=== PATIENT | female | born 1980 | race Caucasian/White ===

== ENCOUNTER 2023-11-17 11:54 | Outpatient (CLI) | payer MEDICAID, SELFPAY ==
--- NOTE | 2023-11-17 12:00 | MM_ITS ---
WS: [id number] BILATERAL 3D TOMOSYNTHESIS DIGITAL SCREENING MAMMOGRAPHY WITH CAD CLINICAL INFORMATION: SCREENING HISTORY: Screening mammogram. No current complaints. COMPARISON: New baseline TECHNIQUE: Bilateral CC and MLO views. FINDINGS: Scattered fibroglandular densities bilaterally. No suspicious focal mass, asymmetry, calcifications, or architectural distortion. No evidence of malignancy. IMPRESSION: MM/[place] [id number] BI-RADS: 1-Negative FOLLOW UP: 1 Year Follow-up Recommend return to annual screening mammography.
== END 2023-11-17 11:55 | disposition home or self-care (01) ==
LOC: MOBLMAM 12:04
PROVIDERS: PCP Nurse Practitioner Family; Visit Provider Nurse Practitioner Family
DX: Z12.31 Encounter for screening mammogram for malignant neoplasm of breast (principal)
CPT/HCPCS: 77063; 77067

== ENCOUNTER → 2023-11-22 15:00 | Outpatient (BNVA) | payer MEDICAID, SELFPAY | PROVIDERS: PCP Nurse Practitioner Family; Visit Provider Obstetrics & Gynecology | DX: Z00.00 Encounter for general adult medical examination without abnormal findings (principal) | CPT/HCPCS: 80053; 84443; 85025 ==

== ENCOUNTER → 2023-11-28 09:16 | Outpatient (BNVA) | payer MEDICAID, SELFPAY | PROVIDERS: PCP Nurse Practitioner Family; Visit Provider Obstetrics & Gynecology | DX: N92.0 Excessive and frequent menstruation with regular cycle (principal); N83.201 Unspecified ovarian cyst, right side | CPT/HCPCS: 76830 ==

== ENCOUNTER 2024-08-05 11:06 | Emergency (ER) | payer MEDICAID, SELFPAY ==
[2024-08-05] VITALS (7 sets, daily range): BP systolic 98–116; BP diastolic 63–86; PULSE 87–116; RESP 15–22; TEMP 36.6; O2SAT 96–100; BMI 21.6
[2024-08-05 11:49] LABS: HCG Qualitative Urine. Negative (Negative)
[2024-08-05 11:55] LABS: Add Urine Microscopic? YES; Bilirubin Urine 1+ (Negative); Blood Urine 2+ (Negative); Glucose Urine UA Norm (Normal); Ketones Urine Negative (Negative); Leukocyte Esterase Urine 2+ (Negative); Nitrate Urine Negative (Negative); Protein Urine 1+ (Negative); Urine Appearance Slightly Cloudy (CLEAR); Urine Color Yellow (Yellow); Urobilinogen Urine 1 mg/dL (Negative); pH Urine 7 (5-7)
[2024-08-05 11:56] LABS: Add Urine Culture? No; Bacteria Urine 2+ /hpf; RBC Urine 0-4 /hpf (0-2); WBC Urine 15-25 /hpf (0-5)
--- NOTE | 2024-08-05 12:11 | PC.NURSE ---
pt reports being iv drug user for 20 years. attempted iv, tech attempted iv, no success. charge nurse rn notified for us iv.
--- NOTE | 2024-08-05 12:15 | ED_ITS ---
HPI - Abdominal Pain 2 General: Chief Complaint: Abdominal Pain Stated Complaint: right stomach pain, vomiting, nauseau Time Seen by Provider: 08/05/24 11:37 History of Present Illness: Patient presents to the ER with complaint of gallbladder pain. She also has nausea vomiting diarrhea this been going over a week long. She says in 2 days she has a appointment for a surgical consult by Dr. Guerra. She has not been able to eat anything for the last week or keep any fluids down. She she is getting weak and her pain has been increasing. She is not on any pain medicine but she is on famotidine and Prilosec and this does not seem to be helping. Related Data Home Medications Medication Instructions Recorded Confirmed buspirone 5 mg tablet 5 mg PO BID 11/22/23 11/22/23 famotidine 10 mg tablet 10 mg PO DAILY 11/22/23 11/22/23 omeprazole 20 mg tablet,delayed 20 mg PO DAILY 11/22/23 11/22/23 release Previous Rx's Medication Instructions Recorded ketorolac 10 mg tablet 10 mg PO TID PRN pain #14 tabs 08/05/24 metoclopramide HCl 10 mg tablet 10 mg PO Q6H PRN nausea and 08/05/24 (Reglan) vomiting #20 tabs potassium chloride 20 mEq 20 meq PO BID #14 tabs 08/05/24 tablet,extended release Allergies Allergy/AdvReac Type Severity Reaction Status Date / Time Penicillins Allergy ALGY-Rash Verified 08/05/24 11:17 Review of Systems 2 General: Reports: 10 or more systems reviewed and unremarkable except in HPI and below PFSH ED 2 PFSH: Family History Grandmother Breast cancer maternal Colon cancer maternal Hypercholesteremia maternal Hypertension maternal Mother Uterine cancer Grandfather Hypercholesteremia Hypertension maternal Denies family history of Ovarian cancer Diabetes mellitus type 1 Diabetes mellitus, type 2 Heart disease Thyroid disease Stroke Physical Exam 2 Const: COMMON NORMALS: no acute distress, average body habitus, patient oriented x3, no limitations, healthy appearing, alert and well nourished HENMT: COMMON NORMALS: normocephalic, atraumatic, hearing grossly normal bilaterally, external ears normal, Normal external nose present and moist oral mucous membranes HEAD & SCALP: normocephalic and atraumatic NOSE: Normal external nose present EXTERNAL EAR: Yes external ears normal Neck/C-Spine: COMMON NORMALS: no JVD Chest: COMMONS NORMALS: normal inspection of the chest and normal palpation of entire chest wall Resp: COMMON NORMALS: normal respiratory effort, No retractions, No use of accessory muscles and clear to auscultation bilaterally AUSCULTATION: clear to auscultation bilaterally Cardio: COMMON NORMALS: no JVD, regular rate, regular rhythm, S1 normal heart sound present, S2 normal heart sound present, No gallops present (Cardio), No clicks present (Cardio), No murmurs present (Cardio) and No rub (Cardio) R ATE: regular rate RHYTHM: regular rhythm HEART SOUNDS: S1 normal heart sound present and S2 normal heart sound present GI: COMMON NORMALS: Normal to inspection, nondistended, normoactive bowel sounds present, Soft to palpation, No hepatosplenomegaly present and no masses; negative for non-tender (Tender to palpate right upper quadrant) PALPATION: Y es Soft to palpation and Yes No hepatosplenomegaly present Neuro: COMMON NORMALS: patient oriented x3 SENSORIUM/ORIENTATION: Yes alert Course 2 Vital Signs: Vital signs: Vital Signs Temperature 97.9 F 08/05/24 11:10 Pulse Rate 98 08/05/24 13:30 Respiratory Rate 18 08/05/24 13:30 Blood Pressure 98/63 08/05/24 13:30 Pulse Oximetry 100 08/05/24 13:30 Oxygen Delivery Me thod Room Air 08/05/24 13:30 MDM - Abdominal Pain Medical Decision Making Patient presents to the ER with right upper quadrant abdominal pain nausea vomiting. Patient already has appointment with Dr. Guerra. Lab work was obtained which showed patient potassium of 2.1, otherwise benign. Patient was given 40 oral milliequivalents potassium here as well as 4 mg Zofran and 30 mg Toradol. Patient be discharged with Reglan, Toradol and potassium. Patient should keep her appointment with Dr. Guerra and follow-up with her PCP in approximately 7 days for reeval. Differential Diagnosis Likely abdominal pain Medical Records I reviewed the patient's medical records. Lab Data I reviewed the patient's lab results. 08/05/24 12:40 08/05/24 12:40 Labs/Radiology: Laboratory Results WBC 11.84 10^3/uL (3.29-11.43) H 08/05/24 12:40 RBC 4.01 10^6/uL (3.85-5.65) 08/05/24 12:40 Hgb 12.60 g/dL (11.27-16.99) 08/05/24 12:40 Hct 35.7 % (36-47) L 08/05/24 12:40 MCV 89.0 fl (85-98) 08/05/24 12:40 MCH 31.4 pg (27-33) 08/05/24 12:40 MCHC 35.3 g/dL (30-55) 08/05/24 12:40 RDW 15.9 % (12.1-15.1) H 08/05/24 12:40 Plt Count 362 10^3/cmm (157-399) 08/05/24 12:40 MPV 9.4 fL (7.4-10.4) 08/05/24 12:40 Neut % (Auto) 66.8 % 08/05/24 12:40 Lymph % (Auto) 15.3 % 08/05/24 12:40 [place] % (Auto) 16.5 % 08/05/24 12:40 Eos % (Auto) 0.7 % 08/05/24 12:40 Baso % (Auto) 0.3 % 08/05/24 12:40 Neut # (Auto) 7.92 10^3/uL (1.8-7.7) H 08/05/24 12:40 Lymph # (Auto) 1.8 10^3/uL (0.8-4.8) 08/05/24 12:40 [place] # (Auto) 2.0 10^3/uL (0.2-0.9) H 08/05/24 12:40 Eos # (Auto) 0.1 10^3/uL (0.0-0.8) 08/05/24 12:40 Baso # (Auto) 0.0 10^3/uL (0.0-0.1) 08/05/24 12:40 Nucleated RBC % (auto) 0.2 % 08/05/24 12:40 Nucleated RBCs # 0.0 /100WBC 08/05/24 12:40 Sodium 133 mmol/L (136-145) L 08/05/24 12:40 Potassium 2.1 mmol/L (3.5-5.1) L* 08/05/24 12:40 Chloride 86 mmol/L (98-107) L 08/05/24 12:40 Carbon Dioxide 30 mmol/L (22-29) H 08/05/24 12:40 Anion Gap 19.1 (5-19) H 08/05/24 12:40 BUN 3 mg/dL (6-20) L 08/05/24 12:40 Creatinine 0.6 mg/dL (0.5-0.9) 08/05/24 12:40 GFR Calculation 108.6 mL/min (90-130) 08/05/24 12:40 Glucose 122 mg/dL (65-115) H 08/05/24 12:40 Calculated Osmolality 274 mOsm/kg (285-295) L 08/05/24 12:40 Calcium 7.6 mg/dL (8.5-10.5) L 08/05/24 12:40 Total Bilirubin 0.7 mg/dL (0.15-1.2) 08/05/24 12:40 AST 19 U/L (0-32) 08/05/24 12:40 ALT 6 U/L (0-33) 08/05/24 12:40 Alkaline Phosphatase 111 U/L (35-105) H 08/05/24 12:40 Total Protein 6.2 g/dL (6.6-8.7) L 08/05/24 12:40 Albumin 3.2 g/dL (3.5-5.2) L 08/05/24 12:40 Globulin 3.0 g/dL (1.3-4.6) 08/05/24 12:40 HCG, Qual Negative (Negative) 08/05/24 11:24 Urine Color Yellow (Yellow) 08/05/24 11:24 Urine Appearance Slightly cloudy (CLEAR) 08/05/24 11:24 Urine pH 7 (5-7) 08/05/24 11:24 Ur Specific [place] 1.000 (1.005-1.030) L 08/05/24 11:24 Urine Protein 1+ (Negative) H 08/05/24 11:24 Urine Glucose (UA) Norm (Normal) 08/05/24 11:24 Urine Ketones Negative (Negative) 08/05/24 11:24 Urine Blood 2+ (Negative) H 08/05/24 11:24 Urine Nitrate Negative (Negative) 08/05/24 11:24 Urine Bilirubin 1+ (Negative) H 08/05/24 11:24 Urine Urobilinogen 1 mg/dL (Negative) H 08/05/24 11:24 Ur Leukocyte Esterase 2+ (Negative) H 08/05/24 11:24 Urine RBC 0-4 /hpf (0-2) H 08/05/24 11:24 Urine WBC 15-25 /hpf (0-5) H 08/05/24 11:24 Ur Squamous Epith Cells 10-15 /hpf (0-5) H 08/05/24 11:24 Amorphous Sediment Not Reportable 08/05/24 11:24 Urine Bacteria 2+ /hpf (NONE) H 08/05/24 11:24 All radiology interpretation(s) finalized by discharge Discharge Plan Discharge Patient Disposition: Home Clinical Impression: Biliary colic, Acute hypokalemia Nausea & vomiting Qualifiers: Vomiting type: unspecified Qualified Code(s): R11.2 - Nausea with vomiting, unspecified Condition: Stable Prescriptions: New metoclopramide HCl [Reglan] 10 mg tablet 10 mg PO Q6H PRN (Reason: nausea and vomiting) Qty: 20 0RF ketorolac 10 mg tablet 10 mg PO TID PRN (Reason: pain) Qty: 14 0RF Rx Instructions: maximum total duration of 5 days from all oral, intranasal, or parenteral formulations potassium chloride 20 mEq tablet extended release 20 meq PO BID Qty: 14 0RF No Action omeprazole 20 mg tablet,delayed release (DR/EC) 20 mg PO DAILY famotidine 10 mg tablet 10 mg PO DAILY buspirone 5 mg tablet 5 mg PO BID Discharge Orders: Discharge ED (Routine); Ordered 08/05/24 Ordered By: Mark Garcia Referrals: Raya Milan FNP [Primary Care Provider] - 1 week Patient Instructions: Abdominal Pain (ED), Biliary Colic (ED), Hypokalemia (ED) Activity Restrictions/Additional Instructions: Potassium is really low at 2.1. You are given potassium in ER as well as pain medicine and nausea medicine. You been provided with prescriptions for all of these and have been sent to your pharmacy. Please keep your appointment for your gallbladder and please follow-up with your family practice physician within the next 7 days for further evaluation and testing of your potassium. Coding Level of Care Code ED Pole Shaver for Gregoria Mcclure
[2024-08-05] MEDS: sodium chloride 0.9% 1,000 ML 999 ML IV (12:43)
[2024-08-05] MEDS: ondansetron 2 mg/ML SDV 2 mL 4 MG IVP (12:44)
[2024-08-05] MEDS: ketorolac 30 mg/mL INJ IVP (12:45)
[2024-08-05] MEDS: metoclopramide 5 mg/mL SDV 2 mL 10 MG IVP (12:46)
[2024-08-05 12:48] LABS: Basophils % 0.3 %; Eosinophils # 0.1 10^3/uL (0.0-0.8); Eosinophils % 0.7 %; Hematocrit 35.7 % (36-47); Lymphocytes # 1.8 10^3/uL (0.8-4.8); Lymphocytes % 15.3 %; Mean Corpuscular HGB Conc 35.3 g/dL (30-55); Mean Corpuscular Hemoglobin 31.4 pg (27-33); Mean Platelet Volume 9.4 fL (7.4-10.4); Monocytes % 16.5 %; Neutrophils # 7.92 10^3/uL (1.8-7.7); Neutrophils % 66.8 %; Nucleated Red Blood Cells % 0.2 %; Platelet Count 362 10^3/cmm (157-399); Red Blood Count 4.01 10^6/uL (3.85-5.65); Red Cell Distribution Width 15.9 % (12.1-15.1); White Blood Count 11.84 10^3/uL (3.29-11.43)
[2024-08-05 13:06] LABS: Alanine Aminotransferase 6 U/L (0-33); Albumin Level 3.2 g/dL (3.5-5.2); Alkaline Phosphatase 111 U/L (35-105); Anion Gap 19.1 (5-19); Aspartate Amino Transferase 19 U/L (0-32); Blood Urea Nitrogen 3 mg/dL (6-20); Calcium 7.6 mg/dL (8.5-10.5); Carbon Dioxide 30 mmol/L (22-29); Chloride 86 mmol/L (98-107); Creatinine Clr Calc Pharmacy 109.1528; Glomerular Filtration Rate 108.6 mL/min (90-130); Glucose 122 mg/dL (65-115); Osmolality Calculated 274 mOsm/kg (285-295); Sodium 133 mmol/L (136-145); Total Bilirubin 0.7 mg/dL (0.15-1.2); Total Protein 6.2 g/dL (6.6-8.7)
[2024-08-05 13:19] LABS: Potassium 2.1 mmol/L (3.5-5.1)
[2024-08-05] MEDS: potassium chloride ER 20 mEq Tablet 40 MEQ PO (13:31)
== END 2024-08-05 14:19 | disposition home or self-care (01) ==
PROVIDERS: Emergency Provider Emergency Medicine; PCP Nurse Practitioner Family
DX: R11.2 Nausea with vomiting, unspecified (principal); E87.6 Hypokalemia; K80.50 Calculus of bile duct without cholangitis or cholecystitis without obstruction
CPT/HCPCS: 80053; 81001; 81025; 85025; 96361; 96374; 96375; 99284; J1885; J2405; J2765; J7030

== ENCOUNTER → 2024-08-14 15:28 | Outpatient (BNVA) | payer MEDICAID, SELFPAY | PROVIDERS: PCP Nurse Practitioner Family; Visit Provider Surgery | DX: K80.50 Calculus of bile duct without cholangitis or cholecystitis without obstruction (principal); R11.2 Nausea with vomiting, unspecified | CPT/HCPCS: 80048 ==

== ENCOUNTER 2024-08-16 11:05 | Inpatient (IN) | payer MEDICAID, SELFPAY ==
[2024-08-16] VITALS (30 sets, daily range): BP systolic 72–122; BP diastolic 41–70; PULSE 84–107; RESP 10–31; TEMP 36.3–36.8; O2SAT 88–100; BMI 23.6; BMI 25.7
--- NOTE | 2024-08-16 11:17 | ECG_ITS ---
[facility] Test Date: 2024-08-16 Pat Name: Radha Shabazz Department: Room: Gender: Female Clinical Allergist: : 1980 Requested By: Bharat Carey Order Number: [id number] Renetta MD: Mark Rebolledo M.D. Measurements Intervals [place] Rate: 100 P: 58 CT: 125 QRS: 78 QRSD: 80 T: -1 QT: 432 QTc: 558 Interpretive Statements SINUS TACHYCARDIA POSSIBLE LEFT ATRIAL ENLARGEMENT [-0.1mV P-WAVE IN V1/V2] ST DEVIATION AND MODERATE T-WAVE ABNORMALITY, CONSIDER LATERAL ISCHEMIA [-0.1+ mV T-WAVE IN I/aVL/V5/V6] ST DEVIATION AND MODERATE T-WAVE ABNORMALITY, CONSIDER INFERIOR ISCHEMIA [-0.1+ mV T-WAVE IN II/aVF] No previous ECG available for comparison Electronically Signed On 08-16-2024 16:35:25 CDT by Mark Rebolledo M.D. [id number]
[2024-08-16 12:11] LABS: Basophils % 0.4 %; Eosinophils # 0.1 10^3/uL (0.0-0.8); Eosinophils % 0.6 %; Hematocrit 28.6 % (36-47); Lymphocytes # 2.1 10^3/uL (0.8-4.8); Lymphocytes % 20.5 %; Mean Corpuscular Hemoglobin 30.5 pg (27-33); Mean Corpuscular Volume 84.6 fl (85-98); Mean Platelet Volume 9.2 fL (7.4-10.4); Monocytes # 1.9 10^3/uL (0.2-0.9); Monocytes % 18.8 %; Neutrophils # 5.88 10^3/uL (1.8-7.7); Neutrophils % 58.6 %; Nucleated Red Blood Cells # 0.1 /100WBC; Nucleated Red Blood Cells % 0.9 %; Platelet Count 295 10^3/cmm (157-399); Red Blood Count 3.38 10^6/uL (3.85-5.65); Red Cell Distribution Width 15.9 % (12.1-15.1); White Blood Count 10.04 10^3/uL (3.29-11.43)
[2024-08-16 12:40] LABS: Alanine Aminotransferase 11 U/L (0-33); Albumin Level 2.7 g/dL (3.5-5.2); Alkaline Phosphatase 127 U/L (35-105); Anion Gap 22.9 (5-19); Aspartate Amino Transferase 32 U/L (0-32); Blood Urea Nitrogen 7 mg/dL (6-20); Calcium 7.4 mg/dL (8.5-10.5); Carbon Dioxide 26 mmol/L (22-29); Chloride 75 mmol/L (98-107); Creatinine Clr Calc Pharmacy 109.2881; Globulin 2.7 g/dL (1.3-4.6); Glomerular Filtration Rate 108.6 mL/min (90-130); Glucose 144 mg/dL (65-115); Magnesium 1.4 mg/dL (1.7-2.3); Osmolality Calculated 255 mOsm/kg (285-295); Sodium 122 mmol/L (136-145); Total Protein 5.4 g/dL (6.6-8.7)
--- NOTE | 2024-08-16 12:42 | ED_ITS ---
HPI - Recheck/Abnormal Lab/Rx 2 General: Chief Complaint: Recheck/Abnormal Lab/Rx Stated Complaint: low potassium and everything hurts Time Seen by Provider: 08/16/24 12:07 History of Present Illness: 43-year-old female who presents to the e mergency room at the direction of primary care she has had persistent nausea vomiting her potassium is low or previous lab work it was noted today. She was advised to return to the emergency room she has had right upper quadrant abdominal pain with persistent nausea vomiting last several weeks been progressively worsening. She has known cholelithiasis that was noted on his ultrasound of her gallbladder in late May this year. He show 3 she is being scheduled for cholecystectomy. She still has persistent epigastric and right upper quadrant pain. She denies any history of kidney disease. She is not on any chronic diuretics. She is currently on Augmentin for her cholecystitis symptoms that was started as an outpatient. Related Data Home Medications Medication Instructions Recorded Confirmed omeprazole 20 mg tablet,delayed 20 mg PO DAILY 11/22/23 08/16/24 release Previous Rx's Medication Instructions Recorded ketorolac 10 mg tablet 10 mg PO TID PRN pain #14 tabs 08/05/24 metoclopramide HCl 10 mg tablet 10 mg PO Q6H PRN nausea and 08/05/24 (Reglan) vomiting #20 tabs potassium chloride 20 mEq 20 meq PO BID #14 tabs 08/05/24 tablet,extended release ondansetron HCl 4 mg tablet 4 mg PO Q8H PRN nausea and 08/07/24 vomiting #20 tabs amoxicillin 400 mg-potassium 10 ml PO BID 7 days #140 mL 08/10/24 clavulanate 57 mg/5 mL oral suspension pantoprazole 40 mg tablet,delayed 40 mg PO BID 6 weeks #84 tabs 08/10/24 release (Protonix) Allergies Allergy/AdvReac Type Severity Reaction Status Date / Time Penicillins Allergy ALGY-Rash Verified 08/07/24 10:02 Review of Systems 2 Const: Reports: fever(s), chills, fatigue and malaise Card: Denies: chest pain Resp: Denies: dyspnea GI: Reports: abdominal pain, nausea and vomiting; Denies: hematemesis, coffee ground emesis, hematochezia or melena : Denies: dysuria, urinary frequency or urinary urgency Musc: Denies: neck pain or back pain Skin/Breast: Denies: rash PFSH ED 2 PFSH: Medical History Biliary colic Surgical History History of tubal ligation Family History Grandmother Breast cancer maternal Colon cancer maternal Hypercholesteremia maternal Hypertension maternal Mother Uterine cancer Grandfather Hypercholesteremia Hypertension maternal Denies family history of Ovarian cancer Diabetes mellitus type 1 Diabetes mellitus, type 2 Heart disease Thyroid disease Stroke Social History Smoking and tobacco/nicotine status: current every day tobacco/nicotine user Physical Exam 2 Const: GENERAL APPEARANCE: cooperative ORIENTATION/CONSCIOUSNESS: Yes awake, Yes oriented to person, Yes oriented to place and Yes oriented to time HENMT: COMMON NORMALS: normocephalic, atraumatic and hearing grossly normal bilaterally HEAD & SCALP: normocephalic and atraumatic Resp: COMMON NORMALS: normal respiratory effort, No retractions, No use of accessory muscles and clear to auscultation bilaterally AUSCULTATION: clear to auscultation bilaterally Cardio: COMMON NORMALS: regular rate, regular rhythm and No murmurs present (Cardio) RATE: regular rate RHYTHM: regular rhythm GI: COMMON NORMALS: No hepatosplenomegaly present AUSCULTATION: Yes normoactive bowel sounds PALPATION: Yes Tenderness to palpation present (GI) Details: RUQ, No Guarding due to palpation present (GI) and Yes No hepatosplenomegaly present Extremity: COMMON NORMALS: normal to inspection, capillary refill normal, no clubbing, cyanosis or edema, no calf tenderness and no pedal edema Neuro: SENSORIUM/ORIENTATION: Yes oriented to person, Yes oriented to place and Yes oriented to time Skin: COMMON NORMALS: no rashes or lesions noted GENERAL SKIN EXAM: no rashes or lesions noted Procedures Central Line Placement Right SC: Time Out Performed: Yes Patient Placed on Monitor/Pulse Ox: Yes MD Prep: mask, gown and gloves Central Line Prep: Chlorhexidine scrub Local Anesthetic: lidocaine 1% Amount of anesthesia used (mL): 5 Ultrasound Used for Placement: Yes Central Line Lumen Inserted: triple Post Procedure: sutured in place, good blood return, all ports aspirated, flushed, capped and sterile dressing applied Post Procedure X-Ray: tip of catheter in good position and no pneumothorax seen Patient Tolerated Procedure: well Complications: none Course 2 Vital Signs: Vital signs: Vital Signs Temperature 98.9 F 08/17/24 04:15 Pulse Rate 97 08/17/24 06:20 Respiratory Rate 15 08/17/24 06:29 Blood Pressure 91/60 08/17/24 06:15 Pulse Oximetry 99 08/17/24 06:29 Oxygen Delivery Me thod Room Air 08/17/24 06:15 MDM - Recheck/Abnormal Lab/Rx Medical Decision Making Patient presents with persistent nausea vomiting. Known hypokalemia laboratory test done today shows no leukocytosis, severe hypokalemia with a potassium of 1.9. She also has hyponatremia with a potassium of 122. Magnesium is also low at 1.4. Patient after arriving here began to develop significant hypotension. She was given a sepsis fluid bolus her lactic acid was elevated she was started on IV antibiotics Cipro and metronidazole since she is allergic to penicillin (although she was on Augmentin prior to arrival). CT shows cholelithiasis without evidence of thickening gallbladder wall. Discussed with radiology. They recommended ultrasound. This was done was not completed prior to patient going to the floor. Discussed with hospitalist. She has received fluids and antibiotics central line has been started and she is currently on Levophed. She was suspicious of gallbladder as a source. She does have some colitis on her CT but is not significant and is in the distal small bowel. We have also consulted general surgery. Medical Records I reviewed the patient's medical records. Lab Data I reviewed the patient's lab results. 08/17/24 04:30 08/17/24 04:30 Radiology Impressions Abdomen/Pelvis CT 08/16/24 12:50 IMPRESSION: 1. Hepatomegaly with diffuse fatty infiltration of the liver. 2. Cholelithiasis. No gallbladder wall thickening or pericholecystic fluid. This could be further evaluated with ultrasound. 3. Submucosal fat deposition within the terminal ileum and cecum can be seen with inflammatory bowel disease. Mild thickening and submucosal enhancement in the RIGHT colon. Recommend correlation with colitis symptoms. 4. IUD in place. 5. No other acute findings. Notified Yevgeniy Dwyer DO at 08/16/2024 2:24 PM. Gallbladder Ultrasound 08/16/24 14:24 IMPRESSION: 1. Cholelithiasis without sonographic evidence of acute cholecystitis. 2. Mildly enlarged, fatty liver. Chest X-Ray 08/16/24 15:05 Impression: Satisfactory placement of right central venous catheter. Laboratory Results WBC 10.04 10^3/uL (3.29-11.43) 08/16/24 12:05 RBC 3.38 10^6/uL (3.85-5.65) L 08/16/24 12:05 Hgb 10.30 g/dL (11.27-16.99) L 08/16/24 12:05 Hct 28.6 % (36-47) L 08/16/24 12:05 MCV 84.6 fl (85-98) L 08/16/24 12:05 MCH 30.5 pg (27-33) 08/16/24 12:05 MCHC 36.0 g/dL (30-55) 08/16/24 12:05 RDW 15.9 % (12.1-15.1) H 08/16/24 12:05 Plt Count 295 10^3/cmm (157-399) 08/16/24 12:05 MPV 9.2 fL (7.4-10.4) 08/16/24 12:05 Neut % (Auto) 58.6 % 08/16/24 12:05 Lymph % (Auto) 20.5 % 08/16/24 12:05 [place] % (Auto) 18.8 % 08/16/24 12:05 Eos % (Auto) 0.6 % 08/16/24 12:05 Baso % (Auto) 0.4 % 08/16/24 12:05 Neut # (Auto) 5.88 10^3/uL (1.8-7.7) 08/16/24 12:05 Lymph # (Auto) 2.1 10^3/uL (0.8-4.8) 08/16/24 12:05 [place] # (Auto) 1.9 10^3/uL (0.2-0.9) H 08/16/24 12:05 Eos # (Auto) 0.1 10^3/uL (0.0-0.8) 08/16/24 12:05 Baso # (Auto) 0.0 10^3/uL (0.0-0.1) 08/16/24 12:05 Nucleated RBC % (auto) 0.9 % 08/16/24 12:05 Nucleated RBCs # 0.1 /100WBC 08/16/24 12:05 Sodium 122 mmol/L (136-145) L 08/16/24 12:05 Potassium 1.9 mmol/L (3.5-5.1) L* 08/16/24 12:05 Chloride 75 mmol/L (98-107) L 08/16/24 12:05 Carbon Dioxide 26 mmol/L (22-29) 08/16/24 12:05 Anion Gap 22.9 (5-19) H 08/16/24 12:05 BUN 7 mg/dL (6-20) 08/16/24 12:05 Creatinine 0.6 mg/dL (0.5-0.9) 08/16/24 12:05 GFR Calculation 108.6 mL/min (90-130) 08/16/24 12:05 Glucose 144 mg/dL (65-115) H 08/16/24 12:05 Calculated Osmolality 255 mOsm/kg (285-295) L 08/16/24 12:05 Lactic Acid 7.6 mmol/L (0.5-2.2) H* 08/16/24 12:05 Calcium 7.4 mg/dL (8.5-10.5) L 08/16/24 12:05 Magnesium 1.4 mg/dL (1.7-2.3) L 08/16/24 12:05 Total Bilirubin 1.0 mg/dL (0.15-1.2) 08/16/24 12:05 AST 32 U/L (0-32) 08/16/24 12:05 ALT 11 U/L (0-33) 08/16/24 12:05 Alkaline Phosphatase 127 U/L (35-105) H 08/16/24 12:05 Total Protein 5.4 g/dL (6.6-8.7) L 08/16/24 12:05 Albumin 2.7 g/dL (3.5-5.2) L 08/16/24 12:05 Globulin 2.7 g/dL (1.3-4.6) 08/16/24 12:05 Lipase 25 U/L (13-60) 08/16/24 12:05 Ser , Semi-Qnt 1.18 mIU/mL 08/16/24 12:05 All radiology interpretation(s) finalized by discharge Discharge Plan Discharge Patient Disposition: Admitted As Inpatient Admit Provider: Mane Clark Clinical Impression: Septic shock, Intractable nausea and vomiting, Hyponatremia, Hypomagnesemia, Hypokalemia, Cholelithiasis Condition: Stable Coding Level of Care Code ED Tapper Operator for Gregoria Mcclure
--- NOTE | 2024-08-16 12:50 | CT_ITS ---
WS: [id number] CT ABDOMEN PELVIS TECHNIQUE: Contrast-enhanced CT of the abdomen and pelvis with coronal and sagittal reformatted image s. CLINICAL INFORMATION: abd pain COMPARISON: None. DLP: 530.[address] scans at [facility] use at least one of these dose optimization techniques: automated e xposure control; mA and/or kV adjustment per patient size (includes targeted exams where dose is matc hed to clinical indication); or iterative reconstruction. FINDINGS: Hepatomegaly. Diffuse fatty infiltration of the liver. Normal portal vein and splenic vein. Cholelith iasis. Suggestion of calculus near the gallbladder neck. No gallbladder wall thickening or pericholec ystic fluid. Gallbladder could be further evaluated with ultrasound. Distal common bile duct appears normal. Fatty atrophy of the pancreas. Normal caliber abdominal aorta. Celiac and SMA are patent. Adr enal glands are normal. Normal renal parenchymal enhancement. No hydronephrosis. Tiny esophageal hiat al hernia. Air-fluid level in the stomach. IUD in place. Urine distended bladder. Normal sigmoid colo n. Submucosal fat deposition in the terminal ileum and cecum can be seen with inflammatory bowel disease . Submucosal enhancement and mild thickening involving the cecum and RIGHT colon. Recommend correlati on with clinical history. Mild disc bulging L3-L5 worse at L4-5. CT/CT abdomen pelvis w con* [id number] IMPRESSION: 1. Hepatomegaly with diffuse fatty infiltration of the liver. 2. Cholelithiasis. No gallbladder wall thickening or pericholecystic fluid. Th is could be further evaluated with ultrasound. 3. Submucosal fat deposition within the terminal ileum and cecum can be seen w ith inflammatory bowel disease. Mild thickening and submucosal enhancement in t he RIGHT colon. Recommend correlation with colitis symptoms. 4. IUD in place. 5. No other acute findings. Notified Yevgeniy Dwyer DO at 08/16/2024 2:24 PM.
[2024-08-16 12:58] LABS: Potassium 1.9 mmol/L (3.5-5.1)
[2024-08-16] MEDS: pantoprazole 40 mg SDV 80 MG IVP (13:06)
[2024-08-16] MEDS: ondansetron 2 mg/ML SDV 2 mL 4 MG IVP (13:06)
[2024-08-16] MEDS: sodium chloride 0.9% 1,000 ML 999 ML IV (13:06)
--- NOTE | 2024-08-16 13:10 | PC.PHAR ---
EXTERNAL DRUG REC WASN'T SHOWING SO I SPOKE TO PHARMACY .THEY STATED ALL NEW MEDS WERE PICKED UPI . PATIENT STATES SHE ISN'T TAKING ANY OF THEM ,THEY DON'T SEEM TO BE WORKING FOR HER . STATED SHE WASN'T TAKING ANTIBIOTIC . FILE STATES SHE IS ALLERGIC TO PENICILLINS
[2024-08-16 13:40] LABS: HCG Quantitative 1.18 mIU/mL
[2024-08-16 13:50] LABS: Lactic Sepsis W/Reflex 7.6 mmol/L (0.5-2.2)
--- NOTE | 2024-08-16 13:59 | XR_ITS ---
WS: [id number] Portable AP supine chest, 08/16/2024 Clinical Data: dyspnea/cough Comparison: None. Findings: No nodules, masses or effusions are seen. The heart is normal. The pulmonary vascularity is not increased. No pneumonia or pneumothorax is seen. Monitor leads are on the chest wall. XR/XR chest 1V portable [id number] Impression: Negative chest.
[2024-08-16] MEDS: iohexol 350 mg/mL 500 mL Btl (per mL) IV (14:08)
--- NOTE | 2024-08-16 14:24 | USR_ITS ---
PROCEDURE INFORMATION: Exam: US Abdomen, Limited; Right Upper Quadrant Exam date and time: 08/16/2024 5:33 PM Age: 43 years old Clinical indication: Condition or disease; Gallbladder condition; Calculus (stone); Additional info: Cholelithiasis TECHNIQUE: Imaging protocol: Real time ultrasound of the abdomen with image documentation. Limited exam focused on the right upper quadrant. COMPARISON: US abdomen limited [id number] 06/11/2024 12:08 PM FINDINGS: Liver: Mild hepatomegaly. Diffuse hepatic steatosis. Gallbladder: Cholelithiasis without gallbladder wall thickening or pericholecystic fluid. Negative sonographic Priest's sign, as per the brick tender. Biliary ducts: No stones. No ductal dilatation. Pancreas: Unremarkable as visualized. Right kidney: No mass. No definite stones. No hydronephrosis. US/US gall bladder [id number] IMPRESSION: 1. Cholelithiasis without sonographic evidence of acute cholecystitis. 2. Mildly enlarged, fatty liver.
--- NOTE | 2024-08-16 14:29 | PM.HP ---
Providers/Chief Complaint Primary Care Provider: Raya Milan Chief Complaint: low potassium and everything hurts History of Present Illness Radha Shabazz is a 43 year old female with a past medical history significant for recently diagnosed biliary colic who presents to the emergency department with intractable nausea and vomiting. Patient reports symptoms initially began in February 2024 with intermittent right upper quadrant discomfort after eating. Symptoms went on for months and developed into nausea and recurrent vomiting. She was recently seen in general surgery clinic with plans for outpatient cholecystectomy. At that time she was also treated with Augmentin and antiemetics to control symptoms and increase already low potassium levels prior to surgery. Today, she presents emergency department with severe nausea and vomiting. She states she has not been able to hold anything down for at least the past week. She is nauseous and vomits to any oral intake including water. She describes her vomiting as copious. She endorses associated abdominal discomfort in all 4 quadrants. She received morphine prior to my evaluation and after morphine rates her pain 5 out of 10. She endorses subjective chills. Denies fevers. Eating exacerbates symptoms. Denies other alleviating or aggravating factors. In the emergency department, she was found to have severe electrolyte abnormalities including hyponatremia, severe life-threatening hypokalemia, hypochloremia, elevated ion gap, severe lactic acidosis, hypomagnesia, and elevated alkaline phosphatase. She was found to have sepsis treated with 30 mL/kg sepsis bolus but remained persistently hypotensive in shock. Patient's being started on Levophed. ED provider was placing central line. is bedside and supportive. Patient denies chronic medical conditions prior to the the biliary colic symptoms that started in February. She reports her only prior surgery was a tubal ligation. Denies prior known adverse reactions to anesthesia. Review of Systems Narrative: A complete review of systems was obtained and is negative except as stated in HPI. Medications/Allergies Home Medications Medication Instructions Recorded Confirmed Last Taken Type omeprazole 20 mg tablet,delayed 20 mg PO DAILY 11/22/23 08/16/24 Unknown History release ketorolac 10 mg tablet 10 mg PO TID PRN pain #14 tabs 08/05/24 08/16/24 Unknown Rx metoclopramide HCl 10 mg tablet 10 mg PO Q6H PRN nausea and 08/05/24 08/16/24 Unknown Rx (Reglan) vomiting #20 tabs potassium chloride 20 mEq 20 meq PO BID #14 tabs 08/05/24 08/16/24 Unknown Rx tablet,extended release ondansetron HCl 4 mg tablet 4 mg PO Q8H PRN nausea and 08/07/24 08/16/24 Unknown Rx vomiting #20 tabs amoxicillin 400 mg-potassium 10 ml PO BID 7 days #140 mL 08/10/24 08/16/24 Unknown Rx clavulanate 57 mg/5 mL oral suspension pantoprazole 40 mg tablet,delayed 40 mg PO BID 6 weeks #84 tabs 08/10/24 08/16/24 Unknown Rx release (Protonix) Allergies Allergy/AdvReac Type Severity Reaction Status Date / Time Penicillins Allergy ALGY-Rash Verified 08/07/24 10:02 PFSH Acute PFSH: Medical History Biliary colic Surgical History History of tubal ligation Family History Grandmother Breast cancer maternal Colon cancer maternal Hypercholesteremia maternal Hypertension maternal Mother Uterine cancer Grandfather Hypercholesteremia Hypertension maternal Denies family history of Ovarian cancer Diabetes mellitus type 1 Diabetes mellitus, type 2 Heart disease Thyroid disease Stroke Social History Smoking and tobacco/nicotine status: current every day tobacco/nicotine user Vitals/I&O/Wt Last Vital Signs Temp 97.5 F L 08/16/24 11:18 Pulse 97 08/16/24 11:37 Resp 20 H 08/16/24 11:37 BP 91/61 08/16/24 11:37 Pulse Ox 92 08/16/24 11:37 O2 Del Method Room Air 08/16/24 11:18 Weight last 48 hrs Weight 62.596 kg Physical Exam Narrative: General: Patient is awake. Acutely ill-appearing. Head: Normocephalic. Atraumatic. EOM intact. Dry mucous membranes. Neck: No JVD. Cardiovascular: RRR. No gallops. No murmurs. Delayed capillary refill. Lungs: Clear to auscultation, no use of accessory muscles, no crackles or wheezes. Skin: No jaundice. No rashes. Abdomen: Hypoactive bowel sounds. Abdomen is diffusely tender to palpation in all 4 quadrants. Genito Urinary: Genital exam not performed since complaints not related. Rectal: Rectal exam not performed since no symptoms indicated blood loss. Extremities: No cyanosis or clubbing. Musculoskeletal: No swollen or erythematous joints. Neurological: Moves all 4 extremities. No myoclonus. Data 08/16/24 12:05 08/16/24 12:05 A&P Assessment and plan (1) Septic shock: Septic shock requiring vasopressor support Sources acute cholecystitis Status post 30 mL/kg body weight with persistent shock Continue Levophed for MAP goal of 65 mmHg Start broad-spectrum antibiotics with ciprofloxacin and Flagyl Trend lactate Telemetry Strict I's and O's Daily weights Supportive care (2) Hypokalemia: Severe life-threatening hypokalemia Replacing potassium Trend levels Continues telemetry monitoring (3) Acute cholecystitis: General Surgery will be consulted by ED provider Plan to stabilize patient and optimize prior to surgery (4) Hypomagnesemia: Replace magnesium Trend levels (5) Intractable nausea and vomiting: Intractable nausea and vomiting secondary to acute cholecystitis with septic shock Antiemetics as needed IV fluid hydration IV PPI Supportive care (6) Hyponatremia: Hypovolemic hyponatremia secondary to GI loss Trend sodium level Treat underlying dehydration and septic shock Plan DVT prophylaxis: SCD in anticipation of surgery CODE STATUS: Full code Attestations Medical Necessity Statement*: Patient presents with intractable nausea vomiting, found to have septic shock requiring vasopressor support, severe life-threatening hypokalemia, multiple other comorbidities with expected hospitalization to cross 2 midnights for treatment of underlying shock, electrolyte correction, telemetry monitoring, general surgery evaluation, and probable surgery. Critical Care Time: The high probability of a clinically significant, sudden or life threatening deterioration of the patient's vascular, biliary, metabolic system(s) required my full and direct attention, intervention and personal management. The critical care time is as shown. This time is in addition to time spent performing any reported procedures but includes the following: [x] Data and vital sign review and interpretation [x] Patient assessment, examination and intervention [x] Documentation [x] Medication orders and management Critical Care Time (min): 80 Coding Level of Care Code Acute Code for [facility] Fwd Diagnoses Septic shock A41.9; R65.21 Hypokalemia E87.6 Acute cholecystitis K81.0 Hypomagnesemia E83.42 Intractable nausea and vomiting R11.2 Hyponatremia E87.1
[2024-08-16 14:37] LABS: Lipase 25 U/L (13-60)
--- NOTE | 2024-08-16 15:05 | XR_ITS ---
WS: [id number] Portable AP supine chest, 08/16/2024 Clinical Data: central line placement Comparison: Portable chest, 08/16/2024 Findings: No nodules, masses or effusions are seen. The heart is normal. The pulmonary vascularity is not increased. No pneumonia or pneumothorax is seen. The right central venous line enters the subcla vian vein and ends at the caval atrial junction. XR/XR chest 1V portable [id number] Impression: Satisfactory placement of right central venous catheter.
[2024-08-16 15:09] LABS: Reflex Lactate Order REFLEX LACTIC ORDERD
[2024-08-16] MEDS: potassium chloride premix 100 ML 25 MEQ IV ×2 (15:20→18:45)
[2024-08-16] MEDS: magnesium sulfate premix 2 GM/50 ML PIGGYBACK IV (15:22)
[2024-08-16] MEDS: norepinephrine 4 MG/250 ML BAG 30 MG IV ×2 (15:23→23:41)
[2024-08-16] MEDS: ciprofloxacin 400 MG/200 ML PREMIX 200 MG IV (15:43)
--- NOTE | 2024-08-16 15:52 | PC.NURSE ---
PT cultures and abx late d/t waiting for central line to be placed.
[2024-08-16] MEDS: sodium chloride 0.9% 1,000 ML 75 ML IV (16:36)
[2024-08-16] MEDS: metroNIDAZOLE IV 500 MG/100 ML PREMIX 100 MG IV ×2 (16:37→23:42)
[2024-08-16 17:59] LABS: Bilirubin Urine Negative (Negative); Blood Urine Negative (Negative); Glucose Urine UA Negative (Normal); Ketones Urine Negative (Negative); Leukocyte Esterase Urine Trace (Negative); Nitrate Urine Negative (Negative); Protein Urine Negative (Negative); Specific Gravity, Urine 1.011 (1.005-1.030); Urine Appearance Clear (CLEAR); Urine Color Yellow (Yellow)
[2024-08-16 18:01] LABS: Add Urine Microscopic? YES; Bacteria Urine None Seen /hpf; Hyaline Casts Urine 0-4 /lpf; RBC Urine 0-2 /hpf (0-2); Squamous Epithelial Cell Urine 0-5 /hpf (0-5); WBC Urine 0-5 /hpf (0-5)
--- NOTE | 2024-08-16 18:12 | PC.NURSE ---
placed scd hose on pt unable to tolerate ,requested they be removed also related has history of sleep anxiety and requested medication to help sleep, urine spec to lab, no wound but noted peircings
[2024-08-16 18:42] LABS: Add Urine Culture? No
[2024-08-16] MEDS: HYDROmorphone 1 mg/mL INJ 1 mL IVP (19:02)
[2024-08-16 19:40] LABS: Albumin Level 2.4 g/dL (3.5-5.2); Blood Urea Nitrogen 5 mg/dL (6-20); Calcium 6.3 mg/dL (8.5-10.5); Carbon Dioxide 23 mmol/L (22-29); Chloride 87 mmol/L (98-107); Creatinine Clr Calc Pharmacy 136.0453; Glucose 150 mg/dL (65-115); Phosphorus 1.4 mg/dL (2.5-4.5); Sodium 127 mmol/L (136-145)
[2024-08-16] MEDS: hyDROXYzine 25 mg Capsule 50 MG PO (22:47)
[2024-08-16 23:54] LABS: Glucose Point of Care 150 mg/dL (70-110)
[2024-08-17] VITALS (100 sets, daily range): BP systolic 76–114; BP diastolic 35–84; PULSE 79–111; RESP 12–27; TEMP 36.4–37.2; O2SAT 93–100; BMI 25.1
[2024-08-17 01:03] LABS: Albumin Level 2.5 g/dL (3.5-5.2); Anion Gap 16.1 (5-19); Blood Urea Nitrogen 4 mg/dL (6-20); Calcium 6.3 mg/dL (8.5-10.5); Carbon Dioxide 24 mmol/L (22-29); Chloride 91 mmol/L (98-107); Creatinine Clr Calc Pharmacy 170.0567; Glomerular Filtration Rate 173.4 mL/min (90-130); Glucose 150 mg/dL (65-115); Phosphorus 1.5 mg/dL (2.5-4.5); Sodium 129 mmol/L (136-145)
[2024-08-17 01:06] LABS: Potassium 2.1 mmol/L (3.5-5.1)
[2024-08-17] MEDS: lidocaine 1% 5 ML in potassium chloride premix 100 ML 26.25 ML IV ×3 (01:27→11:39)
[2024-08-17] MEDS: pantoprazole 40 mg SDV IVP ×2 (03:46→16:48)
[2024-08-17] MEDS: HYDROmorphone 1 mg/mL INJ 1 mL IVP ×6 (03:46→21:42)
[2024-08-17] MEDS: ciprofloxacin 400 MG/200 ML PREMIX 200 MG IV ×2 (03:46→16:47)
[2024-08-17 04:41] LABS: Basophils % 0.2 %; Eosinophils # 0.1 10^3/uL (0.0-0.8); Eosinophils % 1.1 %; Hematocrit 26.1 % (36-47); Lymphocytes # 1.6 10^3/uL (0.8-4.8); Lymphocytes % 18.4 %; Mean Corpuscular HGB Conc 35.6 g/dL (30-55); Mean Corpuscular Hemoglobin 30.8 pg (27-33); Mean Corpuscular Volume 86.4 fl (85-98); Mean Platelet Volume 9.1 fL (7.4-10.4); Monocytes # 1.6 10^3/uL (0.2-0.9); Monocytes % 17.9 %; Neutrophils # 5.39 10^3/uL (1.8-7.7); Neutrophils % 61.4 %; Nucleated Red Blood Cells # 0.1 /100WBC; Nucleated Red Blood Cells % 0.7 %; Platelet Count 266 10^3/cmm (157-399); Red Blood Count 3.02 10^6/uL (3.85-5.65); Red Cell Distribution Width 16.3 % (12.1-15.1); White Blood Count 8.79 10^3/uL (3.29-11.43)
[2024-08-17 04:59] LABS: Alanine Aminotransferase 9 U/L (0-33); Albumin Level 2.4 g/dL (3.5-5.2); Alkaline Phosphatase 113 U/L (35-105); Anion Gap 14.4 (5-19); Aspartate Amino Transferase 27 U/L (0-32); Blood Urea Nitrogen 3 mg/dL (6-20); Calcium 6.3 mg/dL (8.5-10.5); Carbon Dioxide 24 mmol/L (22-29); Chloride 95 mmol/L (98-107); Creatinine Clr Calc Pharmacy 170.0567; Globulin 2.1 g/dL (1.3-4.6); Glomerular Filtration Rate 173.4 mL/min (90-130); Glucose 168 mg/dL (65-115); Magnesium 1.9 mg/dL (1.7-2.3); Osmolality Calculated 272 mOsm/kg (285-295); Phosphorus 1.3 mg/dL (2.5-4.5); Sodium 131 mmol/L (136-145); Total Bilirubin 0.7 mg/dL (0.15-1.2); Total Protein 4.5 g/dL (6.6-8.7)
[2024-08-17 05:09] LABS: Potassium 2.4 mmol/L (3.5-5.1)
[2024-08-17] MEDS: ondansetron 2 mg/ML SDV 2 mL 4 MG IVP ×3 (06:29→23:08)
--- NOTE | 2024-08-17 06:34 | PC.NURSE ---
Nausea Patient complaining of worse nausea/vomiting. Dr. George notified; physician placed order for zofran. See MAR for administration.
[2024-08-17 07:15] LABS: Albumin Level 2.4 g/dL (3.5-5.2); Anion Gap 19.9 (5-19); Blood Urea Nitrogen 3 mg/dL (6-20); Calcium 6.3 mg/dL (8.5-10.5); Carbon Dioxide 21 mmol/L (22-29); Chloride 94 mmol/L (98-107); Creatinine Clr Calc Pharmacy 134.6853; Glucose 138 mg/dL (65-115); Phosphorus 1.3 mg/dL (2.5-4.5); Sodium 132 mmol/L (136-145)
[2024-08-17 07:20] LABS: Potassium 2.9 mmol/L (3.5-5.1)
[2024-08-17] MEDS: metroNIDAZOLE IV 500 MG/100 ML PREMIX 100 MG IV ×3 (07:50→23:40)
[2024-08-17] MEDS: norepinephrine 4 MG/250 ML BAG 26.25 MG IV (08:58)
--- NOTE | 2024-08-17 09:43 | P.PN_ITS ---
Subjective 2 Subjective: Patient remains on 8 mics of Levophed. She reports the nausea has improved somewhat overnight. She is willing to try some limited clears this morning and see response. Denies fevers or chills. Awaiting general surgery evaluation later this morning. Medications: Reviewed: Yes Vitals/I&O/Wt Last Vital Signs Temp 98.6 F 08/17/24 07:00 Pulse 102 H 08/17/24 08:15 Resp 14 08/17/24 08:15 BP 109/79 08/17/24 08:15 Pulse Ox 99 08/17/24 08:15 O2 Del Method Room Air 08/17/24 06:15 08/16/24 08/17/24 08/17/24 22:59 06:59 14:59 Intake Total 3563.297 / 3563.297 778.875 / 4342.172 244 / 244 Output Total 1999 1250 / 3250 Balance 1563.297 / 1563.297 -471.125 / 1092.172 244 / 244 Weight last 48 hrs Weight 66.5 kg Weight 68 kg Weight 62.596 kg Physical Exam 2 Narrative: General: Patient is awake. Alert. Appears fatigued but pleasant. Head: Normocephalic. Atraumatic. EOM intact. Neck: No JVD. Cardiovascular: RRR. No gallops. No murmurs. Lungs: Clear to auscultation, no use of accessory muscles, no crackles or wheezes. Skin: No jaundice. No rashes. Abdomen: Hypoactive bowel sounds. Abdomen is diffusely tender to palpation in all 4 quadrants. Extremities: No cyanosis or clubbing. Musculoskeletal: No swollen or erythematous joints. Neurological: Moves all 4 extremities. No myoclonus. Urinary Catheter Management: Snell: Cath Placed During This Visit: no Reason for Continuing Indwelling Catheter: Accurate Measurement of Urinary Output in Critically Ill Patients Data 08/17/24 04:30 08/17/24 06:44 A&P Assessment and plan (1) Septic shock: Septic shock requiring vasopressor support Sources: Source is likely colitis rather than cholecystitis Continue Levophed for MAP goal of 65 mmHg Continue ciprofloxacin and Flagyl (08/16-present) Telemetry Strict I's and O's Daily weights Supportive care Advance to CLD (2) Colitis: Imaging reviewed Will obtain stool studies if diarrhea develops (3) Hypokalemia: Severe life-threatening hypokalemia Continue replacing potassium Trend levels Continuous telemetry monitoring (4) Hypomagnesemia: Magnesium level has improved after replacement (5) Intractable nausea and vomiting: Intractable nausea and vomiting Antiemetics as needed IV fluid hydration IV PPI CLD Supportive care (6) Hyponatremia: Hypovolemic hyponatremia secondary to GI loss Sodium level improving Continue NS infusion (7) Cholelithiasis: Patient with known cholelithiasis Was originally supposed to have cholecystectomy on Tuesday General surgery evaluation pending to help guide treatment Plan DVT prophylaxis: Lovenox CODE STATUS: Full code Attestations 2 Medical Necessity Statement*: Patient remains in septic shock requiring vasopressor support/IVF/abx, hypokalemia requiring IV replacement, and multiple other electrolyte derangements requiring ongoing hospitalized care. Critical Care Time: The high probability of a clinically significant, sudden or life threatening deterioration of the patient's vascular, GI, metacolic system(s) required my full and direct attention, intervention and personal management. The critical care time is as shown. This time is in addition to time spent performing any reported procedures but includes the following: [x] Data and vital sign review and interpretation [x] Patient assessment, examination and intervention [x] Documentation [x] Medication orders and management Critical Care Time (min): 55 Coding Level of Care Code Acute Code for g Fwd Diagnoses Septic shock A41.9; R65.21 Colitis K52.9 Hypokalemia E87.6 Hypomagnesemia E83.42 Intractable nausea and vomiting R11.2 Hyponatremia E87.1 Cholelithiasis K80.20
[2024-08-17 10:39] LABS: Albumin Level 2.4 g/dL (3.5-5.2); Anion Gap 18.6 (5-19); Blood Urea Nitrogen 3 mg/dL (6-20); Calcium 6.3 mg/dL (8.5-10.5); Carbon Dioxide 21 mmol/L (22-29); Chloride 94 mmol/L (98-107); Creatinine Clr Calc Pharmacy 168.3567; Glomerular Filtration Rate 173.4 mL/min (90-130); Glucose 144 mg/dL (65-115); Phosphorus 1.1 mg/dL (2.5-4.5); Sodium 131 mmol/L (136-145)
[2024-08-17 10:44] LABS: Potassium 2.6 mmol/L (3.5-5.1)
--- NOTE | 2024-08-17 11:03 | P.CONIM_ITS ---
Providers/Reason For Consult 2 Consulting Physician/Specialty*: Dr. Javier Cormier, DO/General Surgery Reason for Consult*: Cholecystitis Attending Physician: Mane Clark MD Primary Care Provider: Raya Milan History of Present Illness History of Present Illness Radha Shabazz is a 43 year old female who has been suffering with biliary colic and resulting nausea and vomiting for the past 4 months. She was admitted to the hospital yesterday in septic shock with a potassium of 1.9. She reports that she has right upper quadrant abdominal pain that radiates to her back. Eating makes pain worse. Nothing makes pain better. She has frequent nausea and vomiting as well. She denies any hematochezia and/or melena. CT of the abdomen pelvis also shows mild thickening and fat deposition in the terminal ileum and ascending colon. Review of Systems 2 General: Reports: 10 or more systems reviewed and unremarkable except in HPI and below Medications/Allergies Home Medications Medication Instructions Recorded Confirmed Last Taken Type omeprazole 20 mg tablet,delayed 20 mg PO DAILY 11/22/23 08/16/24 Unknown History release ketorolac 10 mg tablet 10 mg PO TID PRN pain #14 tabs 08/05/24 08/16/24 Unknown Rx metoclopramide HCl 10 mg tablet 10 mg PO Q6H PRN nausea and 08/05/24 08/16/24 Unknown Rx (Reglan) vomiting #20 tabs potassium chloride 20 mEq 20 meq PO BID #14 tabs 08/05/24 08/16/24 Unknown Rx tablet,extended release ondansetron HCl 4 mg tablet 4 mg PO Q8H PRN nausea and 08/07/24 08/16/24 Unknown Rx vomiting #20 tabs amoxicillin 400 mg-potassium 10 ml PO BID 7 days #140 mL 08/10/24 08/16/24 Unknown Rx clavulanate 57 mg/5 mL oral suspension pantoprazole 40 mg tablet,delayed 40 mg PO BID 6 weeks #84 tabs 08/10/24 08/16/24 Unknown Rx release (Protonix) Allergies Allergy/AdvReac Type Severity Reaction Status Date / Time Penicillins Allergy ALGY-Rash Verified 08/07/24 10:02 Current Medications Generic Name Dose Route Start Last Admin Trade Name Freq PRN Reason Stop Dose Admin Hydromorphone HCl 1 mg 08/16/24 16:18 08/17/24 06:29 Hydromorphone 1 Mg/Ml Inj 1 Ml IVP 1 mg Q2H PRN Administration PAIN 5-10 Hydroxyzine Pamoate 50 mg 08/16/24 18:21 08/16/24 22:47 Hydroxyzine 25 Mg Capsule PO 50 mg QID PRN Administration ANXIETY Norepinephrine Bitartrate 4 mg in 250 mls @ 0 mls/hr 08/16/24 14:30 08/17/24 08:58 Levophed IV 7 mcg/min .Q0M AUREA 26.25 mls/hr Administration Protocol Per Protocol Ciprofloxacin/Dextrose 400 mg in 200 mls @ 200 mls/hr 08/17/24 04:00 08/17/24 05:21 Cipro IV Infused Q12H AUREA Infusion Protocol Metronidazole 500 mg in 100 mls @ 100 mls/hr 08/16/24 16:18 08/17/24 07:50 Flagyl Iv IV 100 mls/hr Q8H AUREA Administration Protocol Sodium Chloride 1,000 mls @ 75 mls/hr 08/16/24 16:30 08/17/24 08:01 Sodium Chloride 0.9% IV Not Given .[id number] AUREA Ondansetron HCl 4 mg 08/17/24 06:18 08/17/24 06:29 Ondansetron 2 Mg/Ml Sdv 2 Ml IVP 4 mg Q6H PRN Administration NAUSEA AND VOMITING Pantoprazole Sodium 40 mg 08/16/24 16:18 08/17/24 03:46 Pantoprazole 40 Mg Sdv IVP 40 mg Q12H AUREA Administration PFSH Acute 2 PFSH: Medical History Biliary colic Surgical History History of tubal ligation Family History Grandmother Breast cancer maternal Colon cancer maternal Hypercholesteremia maternal Hypertension maternal Mother Uterine cancer Grandfather Hypercholesteremia Hypertension maternal Denies family history of Ovarian cancer Diabetes mellitus type 1 Diabetes mellitus, type 2 Heart disease Thyroid disease Stroke Social History Smoking and tobacco/nicotine status: current every day tobacco/nicotine user Vitals/I&O/Wt Last Vital Signs Temp 98.6 F 08/17/24 07:00 Pulse 102 H 08/17/24 10:00 Resp 19 H 08/17/24 10:00 BP 97/62 08/17/24 10:00 Pulse Ox 100 08/17/24 10:00 O2 Del Method Room Air 08/17/24 06:15 08/16/24 08/17/24 08/17/24 22:59 06:59 14:59 Intake Total 3563.297 / 3563.297 778.875 / 4342.172 244 / 244 Output Total 1999 / 1999 1250 / 3250 Balance 1563.297 / 1563.297 -471.125 / 1092.172 244 / 244 Weight last 48 hrs Weight 146 lb 9.718 oz Weight 149 lb 14.629 oz Weight 138 lb Physical Exam 2 Narrative: General : Patient is well developed , no acute distress, oriented x3 Head : Normal cephalic, a-traumatic. Ears : Pinnae and external canal are normal. Hearing is normal. Eyes : PERRLA, Sclera and injection are normal. No conjunctival discharge. Nose : Mucous membranes are without erythema. Throat : buccal mucosa is normal, gums are without significant recession or hypertrophy. Lungs : Equal chest rise bilaterally, no use of accessory muscles, trachea is midline. Cor : Rate and rhythm are normal. Abdomen : Soft, ND, mild right upper quadrant tenderness, negative Priest's, no g/r/m Extremities : No edema, no cyanosis or clubbing, dorsalis pedis pulses are present bilaterally, non-tender to palpation of calves. Upper extremities are normal bilaterally. Back : non-tender to palpation, no CVA tenderness. Neuro : CN II - XII intact, Upper and lower extremities have equal and full strength Urinary Catheter Management: Snell: Cath Placed During This Visit: no Reason for Continuing Indwelling Catheter: Accurate Measurement of Urinary Output in Critically Ill Patients Data 08/17/24 04:30 08/17/24 09:52 A&P Assessment and plan (1) Cholecystitis: (2) Cholelithiasis: (3) Septic shock: (4) Hypokalemia: (5) Hypomagnesemia: (6) Hyponatremia: Plan Electrolyte replacements Low-fat diet Plan for laparoscopic cholecystectomy tomorrow after further electrolyte correction. Hopefully she will be off of Levophed by then as well N.p.o. after midnight Laparoscopic cholecystectomy The risks and benefits of the procedure, including but not limited to, bleeding, infection, scar, numbness, pain, damage to surrounding structures, damage to common bile duct requiring additional surgery, conversion to an open procedure, were explained to the patient. He is understanding of the risks and wishes to proceed. Coding Level of Care Code 38087 Diagnoses Cholecystitis K81.9 Cholelithiasis K80.20 Septic shock A41.9; R65.21 Hypokalemia E87.6 Hypomagnesemia E83.42 Hyponatremia E87.1
[2024-08-17 13:14] LABS: Albumin Level 2.3 g/dL (3.5-5.2); Anion Gap 17.9 (5-19); Blood Urea Nitrogen 3 mg/dL (6-20); Calcium 6.4 mg/dL (8.5-10.5); Carbon Dioxide 21 mmol/L (22-29); Chloride 96 mmol/L (98-107); Creatinine Clr Calc Pharmacy 168.3567; Glomerular Filtration Rate 173.4 mL/min (90-130); Glucose 140 mg/dL (65-115); Phosphorus 1.2 mg/dL (2.5-4.5); Sodium 132 mmol/L (136-145)
[2024-08-17 13:18] LABS: Potassium 2.9 mmol/L (3.5-5.1)
[2024-08-17] MEDS: enoxaparin 40 mg/0.4 mL Syringe SUBCUT (21:16)
[2024-08-17] MEDS: hyDROXYzine 25 mg Capsule 50 MG PO (21:43)
[2024-08-17] MEDS: sodium chloride 0.9% 1,000 ML 75 ML IV (21:50)
[2024-08-17] MEDS: norepinephrine 4 MG/250 ML BAG 15 MG IV (21:52)
[2024-08-17 22:26] LABS: Albumin Level 2.4 g/dL (3.5-5.2); Anion Gap 17.9 (5-19); Blood Urea Nitrogen 2 mg/dL (6-20); Calcium 6.3 mg/dL (8.5-10.5); Carbon Dioxide 19 mmol/L (22-29); Chloride 97 mmol/L (98-107); Glomerular Filtration Rate 173.4 mL/min (90-130); Glucose 144 mg/dL (65-115); Magnesium 1.9 mg/dL (1.7-2.3); Phosphorus 1.2 mg/dL (2.5-4.5); Sodium 131 mmol/L (136-145)
[2024-08-17 22:28] LABS: Creatinine Clr Calc Pharmacy 168.3567
[2024-08-17 22:30] LABS: Potassium 2.9 mmol/L (3.5-5.1)
--- NOTE | 2024-08-17 22:49 | PC.NURSE ---
Low potassium: Patient's potassium was 2.9, Dr. Carter was contacted and gave telephone orders for 40meq KCl IV ONCE.
[2024-08-17] MEDS: lidocaine 1% 5 ML in potassium chloride premix 100 ML 25 ML IV (23:08)
[2024-08-18] VITALS (91 sets, daily range): BP systolic 76–106; BP diastolic 40–74; PULSE 92–110; RESP 14–40; TEMP 36.4; O2SAT 93–100; BMI 26.6
[2024-08-18] MEDS: HYDROmorphone 1 mg/mL INJ 1 mL IVP ×3 (02:13→10:37)
[2024-08-18] MEDS: pantoprazole 40 mg SDV IVP ×2 (03:50→16:11)
[2024-08-18] MEDS: ciprofloxacin 400 MG/200 ML PREMIX 200 MG IV ×2 (03:50→15:09)
[2024-08-18 04:14] LABS: Basophils % 0.4 %; Eosinophils # 0.2 10^3/uL (0.0-0.8); Eosinophils % 2.1 %; Hematocrit 26.9 % (36-47); Lymphocytes # 2.3 10^3/uL (0.8-4.8); Lymphocytes % 23.3 %; Mean Corpuscular HGB Conc 33.5 g/dL (30-55); Mean Corpuscular Hemoglobin 30.4 pg (27-33); Mean Corpuscular Volume 90.9 fl (85-98); Mean Platelet Volume 9.4 fL (7.4-10.4); Monocytes # 1.6 10^3/uL (0.2-0.9); Monocytes % 16.1 %; Neutrophils # 5.49 10^3/uL (1.8-7.7); Neutrophils % 56.8 %; Nucleated Red Blood Cells % 0.3 %; Platelet Count 246 10^3/cmm (157-399); Red Blood Count 2.96 10^6/uL (3.85-5.65); Red Cell Distribution Width 16.9 % (12.1-15.1); White Blood Count 9.67 10^3/uL (3.29-11.43)
[2024-08-18 04:35] LABS: Alanine Aminotransferase 11 U/L (0-33); Albumin Level 2.1 g/dL (3.5-5.2); Alkaline Phosphatase 114 U/L (35-105); Anion Gap 15.2 (5-19); Aspartate Amino Transferase 22 U/L (0-32); Blood Urea Nitrogen 2 mg/dL (6-20); Calcium 6.1 mg/dL (8.5-10.5); Carbon Dioxide 20 mmol/L (22-29); Chloride 97 mmol/L (98-107); Globulin 2.3 g/dL (1.3-4.6); Glomerular Filtration Rate 173.4 mL/min (90-130); Glucose 125 mg/dL (65-115); Magnesium 1.7 mg/dL (1.7-2.3); Osmolality Calculated 266 mOsm/kg (285-295); Phosphorus 1.3 mg/dL (2.5-4.5); Potassium 3.2 mmol/L (3.5-5.1); Sodium 129 mmol/L (136-145); Total Bilirubin 0.4 mg/dL (0.15-1.2); Total Protein 4.4 g/dL (6.6-8.7)
[2024-08-18 04:42] LABS: Creatinine Clr Calc Pharmacy 168.3567
--- NOTE | 2024-08-18 07:17 | P.ANESASSM_ITS ---
Pre-Anesthetic Assessment Height/Weight: Height 5 ft 4 in Weight 155 lb 6.814 oz Temp Pulse Resp BP Pulse Ox O2 Del Method 97.6 F 97 19 H 84/55 97 Room Air 08/18/24 04:15 08/18/24 06:00 08/18/24 06:00 08/18/24 06:00 08/18/24 06:00 08/18/24 06:00 Preop Diagnosis: cholelithiasis Operation Date: 08/18/24 08:10 Proposed Procedures p Laparoscopic Cholecystectomy(Right) - Javier Cormier DO Operation Date: 08/19/24 08:00 Proposed Procedures p Laparoscopic Cholecystectomy(Not Applicable) - Javier Cormier DO Was Beta Shimon taken within 24 hours: N/A Was Clonidine taken within 24 hours: N/A Social Tobacco and No alcohol Exam alert, oriented x 3, clear to auscultation bilaterally and regular rate & rhythm Airway Submandibular: within normal limits Cervical ROM: within normal limits Mallampati: Class III Dentition: false Anesthetic Plan ASA status: 3 Anesthesia: General Other: Patient originally came into the ER with recurrent nausea/vomiting Cholelithiasis noted on CT imaging Hypokalemia, potassium 1.9 at admission. Hyponatremia sodium 122, patient placed in the ICU A.m. labs reviewed today Sodium 129 K+ 3.2 Hemoglobin 9 History of GERD, takes Protonix and omeprazole NPO since Negative test on 08/16 Hypotensive this a.m., BP 84/55. Afebrile on room air EKG at admission showing sinus tachycardia with left atrial enlargement. T wave abnormality most likely secondary to electrolyte abnormalities Prior Drug abuse, on methadone for 10 years. stopped many years ago Patient remains nauseous this a.m. plan for GETA with RSI Medications/Allergies Home Medications Medication Instructions Recorded Confirmed Last Taken Type omeprazole 20 mg tablet,delayed 20 mg PO DAILY 11/22/23 08/16/24 Unknown History release ketorolac 10 mg tablet 10 mg PO TID PRN pain #14 tabs 08/05/24 08/16/24 Unknown Rx metoclopramide HCl 10 mg tablet 10 mg PO Q6H PRN nausea and 08/05/24 08/16/24 Unknown Rx (Reglan) vomiting #20 tabs potassium chloride 20 mEq 20 meq PO BID #14 tabs 08/05/24 08/16/24 Unknown Rx tablet,extended release ondansetron HCl 4 mg tablet 4 mg PO Q8H PRN nausea and 08/07/24 08/16/24 Unknown Rx vomiting #20 tabs amoxicillin 400 mg-potassium 10 ml PO BID 7 days #140 mL 08/10/24 08/16/24 Unknown Rx clavulanate 57 mg/5 mL oral suspension pantoprazole 40 mg tablet,delayed 40 mg PO BID 6 weeks #84 tabs 08/10/24 08/16/24 Unknown Rx release (Protonix) Allergies Allergy/AdvReac Type Severity Reaction Status Date / Time Penicillins Allergy ALGY-Rash Verified 08/07/24 10:02 Current Medications Generic Name Dose Route Start Last Admin Trade Name Freq PRN Reason Stop Dose Admin Enoxaparin Sodium 40 mg 08/17/24 21:00 08/17/24 21:16 Enoxaparin 40 Mg/0.4 Ml Syringe SUBCUT 40 mg BEDTIME AUREA Administration Hydromorphone HCl 1 mg 08/16/24 16:18 08/18/24 04:44 Hydromorphone 1 Mg/Ml Inj 1 Ml IVP 1 mg Q2H PRN Administration PAIN 5-10 Hydroxyzine Pamoate 50 mg 08/16/24 18:21 08/17/24 21:43 Hydroxyzine 25 Mg Capsule PO 50 mg QID PRN Administration ANXIETY Norepinephrine Bitartrate 4 mg in 250 mls @ 0 mls/hr 08/16/24 14:30 08/18/24 04:49 Levophed IV 4 mcg/min .Q0M AUREA 15 mls/hr Titration Protocol Per Protocol Ciprofloxacin/Dextrose 400 mg in 200 mls @ 200 mls/hr 08/17/24 04:00 08/18/24 05:46 Cipro IV Infused Q12H AUREA Infusion Protocol Metronidazole 500 mg in 100 mls @ 100 mls/hr 08/16/24 16:18 08/18/24 02:47 Flagyl Iv IV Infused Q8H AUREA Infusion Protocol Sodium Chloride 1,000 mls @ 75 mls/hr 08/16/24 16:30 08/17/24 21:50 Sodium Chloride 0.9% IV 75 mls/hr .[id number] AUREA Administration Ondansetron HCl 4 mg 08/17/24 06:18 08/17/24 23:08 Ondansetron 2 Mg/Ml Sdv 2 Ml IVP 4 mg Q6H PRN Administration NAUSEA AND VOMITING Pantoprazole Sodium 40 mg 08/16/24 16:18 08/18/24 03:50 Pantoprazole 40 Mg Sdv IVP 40 mg Q12H AUREA Administration PFSH Anesthesia Medical History Biliary colic Surgical History History of tubal ligation Family History Grandmother Breast cancer maternal Colon cancer maternal Hypercholesteremia maternal Hypertension maternal Mother Uterine cancer Grandfather Hypercholesteremia Hypertension maternal Denies family history of Ovarian cancer Diabetes mellitus type 1 Diabetes mellitus, type 2 Heart disease Thyroid disease Stroke Social History Smoking and tobacco/nicotine status: current every day tobacco/nicotine user Data Anesthesia 08/18/24 03:47 08/18/24 03:47 Short CBC 08/16/24 08/17/24 08/18/24 Range/Units 12:05 04:30 03:47 WBC 10.04 8.79 9.67 (3.29-11.43) 10^3/uL Hgb 10.30 L 9.30 L 9.00 L (11.27-16.99) g/dL Hct 28.6 L 26.1 L 26.9 L (36-47) % MCV 84.6 L 86.4 90.9 D (85-98) fl Plt Count 295 266 246 (157-399) 10^3/cmm Neut % (Auto) 58.6 61.4 56.8 % Neut # (Auto) 5.88 5.39 5.49 (1.8-7.7) 10^3/uL BMP 08/16/24 08/16/24 08/17/24 12:05 19:14 00:35 Sodium 122 L 127 L 129 L Potassium 1.9 L* 2.0 L* 2.1 L* Chloride 75 L 87 L 91 L Carbon Dioxide BUN 7 5 L 4 L Creatinine 0.6 0.5 0.4 L Glucose 144 H 150 H 150 H Calcium 7.4 L 6.3 L 6.3 L 08/17/24 08/17/24 08/17/24 04:30 06:44 09:52 Sodium 131 L 132 L 131 L Potassium 2.4 L* 2.9 L D 2.6 L* Chloride 95 L 94 L 94 L Carbon Dioxide 24 21 L 21 L BUN 3 L 3 L 3 L Creatinine 0.4 L 0.5 0.4 L Glucose 168 H 138 H 144 H Calcium 6.3 L 6.3 L 6.3 L 08/17/24 08/17/24 08/18/24 12:42 21:46 03:47 Sodium 132 L 131 L 129 L Potassium 2.9 L 2.9 L 3.2 L Chloride 96 L 97 L 97 L Carbon Dioxide 21 L 19 L 20 L BUN 3 L 2 L 2 L Creatinine 0.4 L 0.4 L 0.4 L Glucose 140 H 144 H 125 H Calcium 6.4 L 6.3 L 6.1 L Liver Function 08/16/24 08/16/24 08/17/24 Range/Units 12:05 19:14 00:35 Total Bilirubin 1.0 (0.15-1.2) mg/dL AST 32 (0-32) U/L ALT 11 (0-33) U/L Alkaline Phosphatase 127 H (35-105) U/L Albumin 2.7 L 2.4 L 2.5 L (3.5-5.2) g/dL 08/17/24 08/17/24 08/17/24 Range/Units 04:30 06:44 09:52 Total Bilirubin 0.7 (0.15-1.2) mg/dL AST 27 (0-32) U/L ALT 9 (0-33) U/L Alkaline Phosphatase 113 H (35-105) U/L Albumin 2.4 L 2.4 L 2.4 L (3.5-5.2) g/dL 08/17/24 08/17/24 08/18/24 Range/Units 12:42 21:46 03:47 Total Bilirubin 0.4 (0.15-1.2) mg/dL AST 22 (0-32) U/L ALT 11 (0-33) U/L Alkaline Phosphatase 114 H (35-105) U/L Albumin 2.3 L 2.4 L 2.1 L (3.5-5.2) g/dL Urine 08/16/24 Range/Units 17:50 Urine Color Yellow (Yellow) Urine Appearance Clear (CLEAR) Urine pH 7.0 (5-7) Ur Specific [place] 1.011 (1.005-1.030) Urine Protein Negative (Negative) Urine Glucose (UA) Negative (Normal) Urine Ketones Negative (Negative) Urine Nitrate Negative (Negative) Urine Bilirubin Negative (Negative) Ur Leukocyte Esterase Trace A (Negative) Urine RBC 0-2 (0-2) /hpf Urine WBC 0-5 (0-5) /hpf Cardiac Studies: 2 No Data to Display
[2024-08-18 07:35] LABS: Glucose Point of Care 257 mg/dL (70-110)
[2024-08-18] MEDS: potassium phosphate (mMol PO4) 30 MMOL in sodium chloride 0.9% (100 ml) 100 ML 23.16 MMOL IV (07:52)
--- NOTE | 2024-08-18 07:55 | PM.PN ---
Vitals/I&O/Wt Last Vital Signs Temp 97.6 F 08/18/24 04:15 Pulse 97 08/18/24 06:00 Resp 19 H 08/18/24 06:00 BP 84/55 08/18/24 06:00 Pulse Ox 97 08/18/24 06:00 O2 Del Method Room Air 08/18/24 06:00 08/17/24 08/18/24 08/18/24 22:59 06:59 14:59 Intake Total 1124.750 / 1694.000 985.915 / 2679.915 Output Total 450 / 450 400 / 850 Balance 674.750 / 1244.000 585.915 / 1829.915 Weight last 48 hrs Weight 155 lb 6.814 oz Weight 146 lb 9.718 oz Weight 149 lb 14.629 oz Weight 138 lb Physical Exam Urinary Catheter Management: Snell: Cath Placed During This Visit: no Reason for Continuing Indwelling Catheter: Accurate Measurement of Urinary Output in Critically Ill Patients Data 08/18/24 03:47 08/18/24 03:47 A&P Assessment and plan (1) Cholecystitis: (2) Cholelithiasis: (3) Septic shock: (4) Hypokalemia: (5) Hypomagnesemia: (6) Hyponatremia: Plan Laparoscopic cholecystectomy The risks and benefits of the procedure, including but not limited to, bleeding, infection, scar, numbness, pain, damage to surrounding structures, damage to common bile duct requiring additional surgery, conversion to an open procedure, were explained to the patient. He is understanding of the risks and wishes to proceed. Attestations Medical Necessity Statement*: PER PRIMARY Coding Level of Care Code Acute Code for [facility] Diagnoses Cholecystitis K81.9 Cholelithiasis K80.20 Septic shock A41.9; R65.21 Hypokalemia E87.6 Hypomagnesemia E83.42 Hyponatremia E87.1
[2024-08-18] MEDS: lidocaine 1% 5 ML in potassium chloride premix 100 ML 26.25 ML IV (07:59)
--- NOTE | 2024-08-18 08:00 | PC.NURSE ---
to surgery per marcy
[2024-08-18] MEDS: lidocaine-epi 2% PF 1:200,000 20 mL SDV (08:01)
[2024-08-18] MEDS: metroNIDAZOLE IV 500 MG/100 ML PREMIX 100 MG IV ×3 (08:03→23:33)
[2024-08-18] MEDS: lidocaine-epi 2% PF 1:200,000 20 mL SDV XX (08:37)
--- NOTE | 2024-08-18 09:20 | P.OP_ITS ---
Operative Report Date of procedure: August 18, 2024 Surgeon: Javier Cormier DO Procedure: Preoperative diagnosis: Cholecystitis with cholelithiasis Postoperative diagnosis: Same Procedure performed: Laparoscopic cholecystectomy Surgeon: Dr. Javier Cormier DO Estimated blood loss: 5 mL Specimens: Gallbladder to pathology Findings: Markedly dilated transverse colon Complications: None apparent Description of procedure: Patient was wheeled into the operative room and placed on the OR table in a supine position. Abdomen was inspected prepped and draped in usual sterile fashion. Time-out was performed and all present were in agreement. A 15 blade scalp was used to make a stab incision in the left upper quadrant and intra- abdominal insufflation was achieved using a Veress needle. After localizing the tissue incisions were made and a 5 millimeter trocar was placed into the umbilicus as well as 2 in the right upper quadrant. A 12 millimeter trocar was placed in the epigastrium. Gallbladder was grasped and elevated. The transverse colon was significantly dilated and somewhat in the surgical field but was able to easily avoid it. The triangle of Calot was carefully dissected using blunt dissection and electrocautery until the triangle of [place]ot clearly identified. The cystic duct was clipped proximally and double clipped distally. The duct was then ligated proximally. The cystic artery was doubly clipped and ligated. The gallbladder was then removed from the liver bed using electrocautery. The gallbladder was removed from the abdomen using an Endo- Catch bag through the epigastric incision. The liver bed was inspected and no bleeding was seen. The abdomen was irrigated and suctioned. All ports removed. Skin was washed and dried. Incisions were closed with 4-0 Monocryl in a subcuticular interrupted fashion. Skin glue was applied. Patient tolerated the procedure well.
--- NOTE | 2024-08-18 09:27 | ANE.PACU2 ---
Inpatient post-anesthesia follow up: Airway intact: Yes Vital signs: Temperature 97 F Pulse Rate 99 Respiratory Rate 32 Blood Pressure 99/56 Pulse Oximetry 99 Oxygen Delivery Me thod Room Air Oxygen Flow Rate Fraction of Inspir ed Oxygen Hydration adequate: Yes Nausea and vomiting: No Pain level: 1 Mental status: Baseline
[2024-08-18] MEDS: sodium chloride 0.9% 1,000 ML 75 ML IV (09:52)
[2024-08-18] MEDS: HYDROcodone-acetaminophen 7.5-325 mg Tablet 1 TAB PO ×3 (10:06→19:48)
--- NOTE | 2024-08-18 10:09 | P.PN_ITS ---
Subjective 2 Subjective: Patient is n.p.o. for possible cholecystectomy today. She reports overall she is feeling slightly better. Nausea is improved. She still on vasopressors. Denies fevers or chills. is bedside and supportive. Discussed plan of care. Medications: Reviewed: Yes Vitals/I&O/Wt Last Vital Signs Temp 97.6 F 08/18/24 04:15 Pulse 105 H 08/18/24 08:00 Resp 19 H 08/18/24 08:00 BP 100/74 08/18/24 09:00 Pulse Ox 100 08/18/24 08:00 O2 Del Method Room Air 08/18/24 06:00 08/17/24 08/18/24 08/18/24 22:59 06:59 14:59 Intake Total 1124.750 / 1694.000 985.915 / 2679.915 1002.5 / 1002.5 Output Total 450 / 450 400 / 850 Balance 674.750 / 1244.000 585.915 / 8432.845 9773.5 / 1002.5 Weight last 48 hrs Weight 70.5 kg Weight 66.5 kg Weight 68 kg Weight 62.596 kg Physical Exam 2 Narrative: General: Patient is awake. Alert. In bed. bedside. Head: Normocephalic. Atraumatic. EOM intact. Neck: No JVD. Central line. Cardiovascular: RRR. No gallops. No murmurs. Lungs: Clear to auscultation, no use of accessory muscles, no crackles or wheezes. Skin: No jaundice. No rashes. Abdomen: Hypoactive bowel sounds. Abdomen slightly tender to palpation, improved from prior exams. Extremities: No cyanosis or clubbing. Musculoskeletal: No swollen or erythematous joints. Neurological: Moves all 4 extremities. No myoclonus. Urinary Catheter Management: Snell: Cath Placed During This Visit: no Reason for Continuing Indwelling Catheter: Accurate Measurement of Urinary Output in Critically Ill Patients Data 08/18/24 03:47 08/18/24 03:47 A&P Assessment and plan (1) Septic shock: Septic shock requiring vasopressor support; still on Levophed Sources: Infectious colitis Continue Levophed for MAP goal of 65 mmHg Continue ciprofloxacin and Flagyl (08/16-present) Telemetry Strict I's and O's Daily weights Supportive care (2) Colitis: Will obtain stool studies if diarrhea develops Management as above (3) Hypokalemia: Potassium continues to improve with treatment Continue trending potassium levels Continue replacement Continues telemetry monitoring (4) Hypomagnesemia: Replace magnesium as needed (5) Intractable nausea and vomiting: Nausea and vomiting has improved, although she is currently n.p.o. for procedure today Antiemetics as needed IV fluid hydration IV PPI Supportive care (6) Hyponatremia: Hypovolemic hyponatremia secondary to GI loss, improving with treatment Continue fluids (7) Cholelithiasis: General Surgery, Dr. Cormier following N.p.o. for possible cholecystectomy today Plan DVT prophylaxis: Lovenox CODE STATUS: Full code Attestations 2 Medical Necessity Statement*: Patient remains in septic shock requiring vasopressor support/IVF/abx, hypokalemia management, probable cholecystectomy, and multiple other electrolyte derangements requiring ongoing hospitalized care. Critical Care Time: The high probability of a clinically significant, sudden or life threatening deterioration of the patient's metabolic, GI, vascular system(s) required my full and direct attention, intervention and personal management. The critical care time is as shown. This time is in addition to time spent performing any reported procedures but includes the following: [x] Data and vital sign review and interpretation [x] Patient assessment, examination and intervention [x] Documentation [x] Medication orders and management Critical Care Time (min): 40 Coding Level of Care Code Acute Code for g [facility] Diagnoses Septic shock A41.9; R65.21 Colitis K52.9 Hypokalemia E87.6 Hypomagnesemia E83.42 Intractable nausea and vomiting R11.2 Hyponatremia E87.1 Cholelithiasis K80.20
[2024-08-18] MEDS: magnesium citrate Btl 296 mL PO (10:27)
--- NOTE | 2024-08-18 10:39 | PC.NURSE ---
pt requesting iv medication for pain
--- NOTE | 2024-08-18 16:56 | PC.NURSE ---
up to bsc after removing hurley passing gas but no bm at this time
[2024-08-18] MEDS: HYDROmorphone 1 mg/mL INJ 1 mL 0.2 MG IVP (19:05)
--- NOTE | 2024-08-18 19:12 | PC.NURSE ---
doctor called about iv dilaudid with soft b/p dose lowered
[2024-08-18] MEDS: hyDROXYzine 25 mg Capsule 50 MG PO (20:11)
[2024-08-18] MEDS: enoxaparin 40 mg/0.4 mL Syringe SUBCUT (20:11)
[2024-08-19] VITALS (15 sets, daily range): BP systolic 77–99; BP diastolic 42–63; PULSE 99–120; RESP 15–32; TEMP 36.1–36.9; O2SAT 99–100
[2024-08-19] MEDS: HYDROcodone-acetaminophen 7.5-325 mg Tablet 1 TAB PO (02:18)
[2024-08-19 03:51] LABS: Basophils % 0.3 %; Eosinophils % 0.5 %; Hematocrit 24.7 % (36-47); Lymphocytes # 2.1 10^3/uL (0.8-4.8); Lymphocytes % 26.8 %; Mean Corpuscular HGB Conc 35.2 g/dL (30-55); Mean Corpuscular Hemoglobin 31.2 pg (27-33); Mean Corpuscular Volume 88.5 fl (85-98); Mean Platelet Volume 9.6 fL (7.4-10.4); Monocytes # 1.1 10^3/uL (0.2-0.9); Monocytes % 13.8 %; Neutrophils # 4.55 10^3/uL (1.8-7.7); Neutrophils % 57.2 %; Nucleated Red Blood Cells # 0.1 /100WBC; Nucleated Red Blood Cells % 0.8 %; Platelet Count 226 10^3/cmm (157-399); Red Blood Count 2.79 10^6/uL (3.85-5.65); Red Cell Distribution Width 16.8 % (12.1-15.1); White Blood Count 7.95 10^3/uL (3.29-11.43)
[2024-08-19 04:08] LABS: Alanine Aminotransferase 11 U/L (0-33); Albumin Level 2.3 g/dL (3.5-5.2); Alkaline Phosphatase 111 U/L (35-105); Anion Gap 17.6 (5-19); Aspartate Amino Transferase 32 U/L (0-32); Blood Urea Nitrogen 1 mg/dL (6-20); Calcium 6.2 mg/dL (8.5-10.5); Carbon Dioxide 15 mmol/L (22-29); Chloride 98 mmol/L (98-107); Globulin 2.2 g/dL (1.3-4.6); Glucose 170 mg/dL (65-115); Magnesium 1.6 mg/dL (1.7-2.3); Osmolality Calculated 264 mOsm/kg (285-295); Phosphorus 1.3 mg/dL (2.5-4.5); Potassium 3.6 mmol/L (3.5-5.1); Sodium 127 mmol/L (136-145); Total Bilirubin 0.4 mg/dL (0.15-1.2); Total Protein 4.5 g/dL (6.6-8.7)
[2024-08-19] MEDS: ciprofloxacin 400 MG/200 ML PREMIX 200 MG IV (04:28)
[2024-08-19] MEDS: sodium chloride 0.9% 1,000 ML 75 ML IV (04:28)
[2024-08-19] MEDS: pantoprazole 40 mg SDV IVP (04:28)
[2024-08-19] MEDS: hyDROXYzine 25 mg Capsule 50 MG PO (05:18)
--- NOTE | 2024-08-19 07:15 | PC.NURSE ---
called to room pt having severe anxiety attack and hyperventilating talke with pt and used nonrebreather mask to slow resp rate
[2024-08-19] MEDS: magnesium sulfate premix 2 GM/50 ML PIGGYBACK IV (07:29)
[2024-08-19] MEDS: sodium bicarbonate 8.4% 1 mEq/mL 50mL Syr 25 MEQ IVP (07:40)
[2024-08-19] MEDS: pantoprazole DR 40 mg Tablet PO (07:41)
[2024-08-19] MEDS: ALPRAZolam 0.5 mg Tablet 1 MG PO (07:41)
[2024-08-19] MEDS: sodium bicarbonate 650 mg Tablet 1300 MG PO (07:41)
[2024-08-19] MEDS: metroNIDAZOLE IV 500 MG/100 ML PREMIX 100 MG IV (07:43)
--- NOTE | 2024-08-19 08:57 | PC.NURSE ---
doctor here shortly after panic attack , medicaton given and all monitor leads removed ect,, pending bed for transfer
--- NOTE | 2024-08-19 09:51 | P.PN_ITS ---
Subjective 2 Subjective: Patient seen and examined. Abdominal pain well-controlled. She denies any further nausea or vomiting and reports she is able to tolerate food well Vitals/I&O/Wt Last Vital Signs Temp 97 F L 08/19/24 07:50 Pulse 99 08/19/24 07:50 Resp 32 H 08/19/24 07:50 BP 99/56 08/19/24 07:50 Pulse Ox 99 08/19/24 07:50 O2 Del Method Room Air 08/19/24 07:50 08/18/24 08/19/24 08/19/24 22:59 06:59 14:59 Intake Total 745.585 / 2871.585 1780 / 4651.585 1130 / 1130 Output Total 300 / 305 200 / 505 605 / 605 Balance 445.585 / 2566.585 1580 / 4146.585 525 / 525 Weight last 48 hrs Weight 155 lb 6.814 oz Physical Exam 2 Narrative: General: No acute distress, awake alert and oriented x 3 Abdomen: Soft, nondistended, appropriately tender, no guarding or rebound Incisions intact without erythema or exudate Urinary Catheter Management: Snell: Cath Placed During This Visit: yes, but has since been removed by the nurse Reason for Continuing Indwelling Catheter: Accurate Measurement of Urinary Output in Critically Ill Patients Date Urinary Catheter Removed: 08/18/24 Time Urinary Catheter Discontinued: 16:00 Data 08/19/24 03:20 08/19/24 03:20 A&P Assessment and plan (1) Cholecystitis: (2) Cholelithiasis: (3) Septic shock: (4) Hypokalemia: (5) Hypomagnesemia: (6) Hyponatremia: (7) Hypophosphatemia: Plan Postop day #1 status post laparoscopic cholecystectomy Electrolyte replacements per primary Regular diet No further surgical intervention. General surgery will sign off. Please reconsult if the need arises Attestations 2 Medical Necessity Statement*: Per primary Coding Level of Care Code Acute Code for [facility] Diagnoses Cholecystitis K81.9 Cholelithiasis K80.20 Septic shock A41.9; R65.21 Hypokalemia E87.6 Hypomagnesemia E83.42 Hyponatremia E87.1 Hypophosphatemia E83.39
[2024-08-19 13:52] LABS: Albumin Level 2.3 g/dL (3.5-5.2); Calcium 6.5 mg/dL (8.5-10.5); Carbon Dioxide 14 mmol/L (22-29); Chloride 98 mmol/L (98-107); Glucose 147 mg/dL (65-115); Sodium 126 mmol/L (136-145)
[2024-08-19 13:53] LABS: Anion Gap 17.6 (5-19); Blood Urea Nitrogen 1 mg/dL (6-20); Potassium 3.6 mmol/L (3.5-5.1)
--- NOTE | 2024-08-19 14:15 | P.DS_ITS ---
Discharge Providers Date of Admission: 08/16/24 14:41 Date of Discharge: August 19, 2024 Attending Provider at Admission: Mane Clark MD Attending Provider at Discharge: Mane Clark MD Consults: General Surgery Primary Care Provider: Raya Milan Diagnoses at Discharge Discharge Diagnosis (1) Cholecystitis: Status: Acute (2) Cholelithiasis: Status: Acute (3) Septic shock: Status: Acute (4) Hypokalemia: Status: Acute (5) Hypomagnesemia: Status: Acute (6) Hyponatremia: Status: Acute (7) Hypophosphatemia: Status: Acute Reason for Visit Reason for Visit: low potassium and everything hurts Hospital Course Hospital Course Radha Shabazz is a 43 year old female with a past medical history significant for recently diagnosed biliary colic who presents to the emergency department with intractable nausea and vomiting, found to have septic shock secondary to infectious colitis with superimposed symptomatic cholelithiasis. Initial labs revealed multiple metabolic derangements including severe life- threatening hypokalemia. She was admitted to the intensive care unit and treated with IV fluid resuscitation, vasopressors, and broad-spectrum antibiotics with ciprofloxacin and metronidazole. General surgery consulted and followed. Shock eventually resolved and sepsis improved. She underwent laparoscopic cholecystectomy due to symptomatic cholelithiasis resulting in persistent nausea and vomiting. Her symptomatology resolved. By day of discharge, patient adamant to be discharged this date. Patient tolerating regular diet. Shock is resolved. Symptoms have resolved. Labs did show persistent metabolic acidosis for which she will continue sodium bicarb tabs as outpatient. Recommend patient have repeat labs in 1 to 2 weeks through her primary care provider. At discharge, she was transition to oral ciprofloxacin and metronidazole to complete extended course for colitis. Physical Exam Narrative: General: Patient is awake. Appears fatigued. Head: Normocephalic. Atraumatic. EOM intact. Neck: No JVD. Cardiovascular: RRR. No gallops. No murmurs. No peripheral edema. Lungs: Clear to auscultation, no use of accessory muscles, no crackles or wheezes. Skin: No jaundice. No rashes. Abdomen: Normal bowel sounds, abdomen soft and nontender. Extremities: No cyanosis or clubbing. Musculoskeletal: No swollen or erythematous joints. Neurological: Moves all 4 extremities. No myoclonus. Urinary Catheter Management: Snell: Cath Placed During This Visit: yes, but has since been removed by the nurse Reason for Continuing Indwelling Catheter: Accurate Measurement of Urinary Output in Critically Ill Patients Date Urinary Catheter Removed: 08/18/24 Time Urinary Catheter Discontinued: 16:00 Discharge Data Studies Completed and Pending Completed Studies During Hospitalization Category Date Time Status CT abdomen pelvis w con* [id number] Stat Cat Scan 08/16/24 12:50 Completed XR chest 1V portable [id number] Stat Exams 08/16/24 13:59 Completed XR chest 1V portable [id number] Stat Exams 08/16/24 15:05 Completed US gall bladder [id number] Stat Ultrasound 08/16/24 14:24 Completed Pending at discharge Category Date Time Status Pathology: Surgical [PTH] Routine Pth 08/18/24 08:58 Ordered Radiology Impressions Abdomen/Pelvis CT 08/16/24 12:50 IMPRESSION: 1. Hepatomegaly with diffuse fatty infiltration of the liver. 2. Cholelithiasis. No gallbladder wall thickening or pericholecystic fluid. This could be further evaluated with ultrasound. 3. Submucosal fat deposition within the terminal ileum and cecum can be seen with inflammatory bowel disease. Mild thickening and submucosal enhancement in the RIGHT colon. Recommend correlation with colitis symptoms. 4. IUD in place. 5. No other acute findings. Notified Yevgeniy Dwyer DO at 08/16/2024 2:24 PM. Gallbladder Ultrasound 08/16/24 14:24 IMPRESSION: 1. Cholelithiasis without sonographic evidence of acute cholecystitis. 2. Mildly enlarged, fatty liver. Chest X-Ray 08/16/24 15:05 Impression: Satisfactory placement of right central venous catheter. Laboratory Results WBC 7.95 10^3/uL (3.29-11.43) 08/19/24 03:20 RBC 2.79 10^6/uL (3.85-5.65) L 08/19/24 03:20 Hgb 8.70 g/dL (11.27-16.99) L 08/19/24 03:20 Hct 24.7 % (36-47) L 08/19/24 03:20 MCV 88.5 fl (85-98) 08/19/24 03:20 MCH 31.2 pg (27-33) 08/19/24 03:20 MCHC 35.2 g/dL (30-55) D 08/19/24 03:20 RDW 16.8 % (12.1-15.1) H 08/19/24 03:20 Plt Count 226 10^3/cmm (157-399) 08/19/24 03:20 MPV 9.6 fL (7.4-10.4) 08/19/24 03:20 Neut % (Auto) 57.2 % 08/19/24 03:20 Lymph % (Auto) 26.8 % 08/19/24 03:20 [place] % (Auto) 13.8 % 08/19/24 03:20 Eos % (Auto) 0.5 % 08/19/24 03:20 Baso % (Auto) 0.3 % 08/19/24 03:20 Neut # (Auto) 4.55 10^3/uL (1.8-7.7) 08/19/24 03:20 Lymph # (Auto) 2.1 10^3/uL (0.8-4.8) 08/19/24 03:20 [place] # (Auto) 1.1 10^3/uL (0.2-0.9) H 08/19/24 03:20 Eos # (Auto) 0.0 10^3/uL (0.0-0.8) 08/19/24 03:20 Baso # (Auto) 0.0 10^3/uL (0.0-0.1) 08/19/24 03:20 Nucleated RBC % (auto) 0.8 % 08/19/24 03:20 Nucleated RBCs # 0.1 /100WBC 08/19/24 03:20 Sodium 126 mmol/L (136-145) L 08/19/24 13:17 Potassium 3.6 mmol/L (3.5-5.1) 08/19/24 13:17 Chloride 98 mmol/L (98-107) 08/19/24 13:17 Carbon Dioxide 14 mmol/L (22-29) L 08/19/24 13:17 Anion Gap 17.6 (5-19) 08/19/24 13:17 BUN 1 mg/dL (6-20) L 08/19/24 13:17 Creatinine 0.5 mg/dL (0.5-0.9) 08/19/24 13:17 GFR Calculation 134.0 mL/min (90-130) H 08/19/24 13:17 Glucose 147 mg/dL (65-115) H 08/19/24 13:17 POC Glucose 257 mg/dL (70-110) H 08/18/24 07:31 Calculated Osmolality 264 mOsm/kg (285-295) L 08/19/24 03:20 Lactic Acid 7.6 mmol/L (0.5-2.2) H* 08/16/24 12:05 Lactic Acid (Sepsis) 4.0 mmol/L (0.5-2.2) H 08/16/24 15:15 Calcium 6.5 mg/dL (8.5-10.5) L 08/19/24 13:17 Phosphorus 1.0 mg/dL (2.5-4.5) L 08/19/24 13:17 Magnesium 1.6 mg/dL (1.7-2.3) L 08/19/24 03:20 Total Bilirubin 0.4 mg/dL (0.15-1.2) 08/19/24 03:20 AST 32 U/L (0-32) 08/19/24 03:20 ALT 11 U/L (0-33) 08/19/24 03:20 Alkaline Phosphatase 111 U/L (35-105) H 08/19/24 03:20 Total Protein 4.5 g/dL (6.6-8.7) L 08/19/24 03:20 Albumin 2.3 g/dL (3.5-5.2) L 08/19/24 13:17 Globulin 2.2 g/dL (1.3-4.6) 08/19/24 03:20 Lipase 25 U/L (13-60) 08/16/24 12:05 Ser , Semi-Qnt 1.18 mIU/mL 08/16/24 12:05 Urine Color Yellow (Yellow) 08/16/24 17:50 Urine Appearance Clear (CLEAR) 08/16/24 17:50 Urine pH 7.0 (5-7) 08/16/24 17:50 Ur Specific [place] 1.011 (1.005-1.030) 08/16/24 17:50 Urine Protein Negative (Negative) 08/16/24 17:50 Urine Glucose (UA) Negative (Normal) 08/16/24 17:50 Urine Ketones Negative (Negative) 08/16/24 17:50 Urine Blood Negative (Negative) 08/16/24 17:50 Urine Nitrate Negative (Negative) 08/16/24 17:50 Urine Bilirubin Negative (Negative) 08/16/24 17:50 Urine Urobilinogen 1.0 mg/dL (Negative) 08/16/24 17:50 Ur Leukocyte Esterase Trace (Negative) A 08/16/24 17:50 Urine RBC 0-2 /hpf (0-2) 08/16/24 17:50 Urine WBC 0-5 /hpf (0-5) 08/16/24 17:50 Ur Squamous Epith Cells 0-5 /hpf (0-5) 08/16/24 17:50 Amorphous Sediment Not Reportable 08/16/24 17:50 Urine Bacteria None seen /hpf (NONE) 08/16/24 17:50 Hyaline Casts 0-4 /lpf H 08/16/24 17:50 Procedures Performed Laparoscopic cholecystectomy Vitals Last Vital Signs Temp 97 F L 08/19/24 07:50 Pulse 99 08/19/24 07:50 Resp 32 H 08/19/24 07:50 BP 99/56 08/19/24 07:50 Pulse Ox 99 08/19/24 07:50 O2 Del Method Room Air 08/19/24 07:50 Discharge Plan Discharge Patient Disposition: Home Condition: Stable Prescriptions: New ciprofloxacin HCl 500 mg tablet 500 mg PO Q12H 12 Days Qty: 24 0RF metronidazole 500 mg tablet 500 mg PO Q8H 12 Days Qty: 36 0RF sodium bicarbonate 650 mg tablet 1,300 mg PO TID 12 Days Qty: 72 0RF Percocet 5-325 mg tablet 1 tab PO Q4H PRN (Reason: pain) 7 Days Qty: 24 0RF Rx Instructions: Do not exceed 5 tabs in 24 hours. Continued pantoprazole [Protonix] 40 mg tablet,delayed release (DR/EC) 40 mg PO BID 42 Days Qty: 84 1RF metoclopramide HCl [Reglan] 10 mg tablet 10 mg PO Q6H PRN (Reason: nausea and vomiting) Qty: 20 0RF potassium chloride 20 mEq tablet extended release 20 meq PO BID Qty: 14 0RF ondansetron HCl 4 mg tablet 4 mg PO Q8H PRN (Reason: nausea and vomiting) Qty: 40 0RF Discontinued omeprazole 20 mg tablet,delayed release (DR/EC) 20 mg PO DAILY amoxicillin-pot clavulanate 400-57 mg/5 mL suspension for reconstitution 10 ml PO BID 7 Days Qty: 140 0RF ketorolac 10 mg tablet 10 mg PO TID PRN (Reason: pain) Qty: 14 0RF Rx Instructions: maximum total duration of 5 days from all oral, intranasal, or parenteral formulations Discharge Orders: Discharge Order (Routine); Ordered 08/19/24 Ordered By: Mane Clark Referrals: Raya Milan FNP [Primary Care Provider] - 4-7 days Javier Cormier DO [Physician] - 1 month (Evaluate for colonoscopy following severe infectious colitis.) Discharge Diet: Advance as tolerated and Usual diet Discharge Activity: Resume usual activity and Increase activity as tolerated Patient Instructions: Ciprofloxacin (By mouth), Oxycodone/Acetaminophen (By mouth), Metronidazole (By mouth), Sodium Bicarbonate (By mouth), Acute Wound Care (DC), Laparoscopic Cholecystectomy (DC), Opioid Safety, Post Anesthesia Care Activity Restrictions/Additional Instructions: 1. Take medications as prescribed. 2. Follow-up with primary care provider within 1 week. 3. Follow-up with general surgery clinic approximately 1 month for consideration of colonoscopy following an episode of severe infectious colitis. 4. Increase oral intake as tolerated. 5. Increase activity as tolerated. Discharge Attestations Time Spent in Discharge Care*: greater than 30 min Quality Metrics Clinical Quality Measures [ No reported AMI, CVA or VTE this stay] Coding Level of Care Code Acute Code for [facility] Diagnoses Cholecystitis K81.9 Cholelithiasis K80.20 Septic shock A41.9; R65.21 Hypokalemia E87.6 Hypomagnesemia E83.42 Hyponatremia E87.1 Hypophosphatemia E83.39
--- NOTE | 2024-08-19 17:21 | PC.NURSE ---
discharge instructions done along with teaching on medication pt insistant on being discharged home today cvl pulled
== END 2024-08-19 15:00 | disposition home or self-care (01) | DRG 853 ==
LOC: ER 12:44 → ICU 15:07
PROVIDERS: Emergency Medicine; Surgery; Admitting Provider Internal Medicine; Emergency Provider Family Medicine; PCP Nurse Practitioner Family; Visit Provider Internal Medicine
PROC: 0FT44ZZ Resection of Gallbladder, Percutaneous Endoscopic Approach (ICD-10-PCS; CPT 47562; principal; 2024-08-18 08:00)
DX: A41.9 Sepsis, unspecified organism (principal); R65.21 Severe sepsis with septic shock; E87.1 Hypo-osmolality and hyponatremia; E87.20 Acidosis, unspecified; K80.00 Calculus of gallbladder with acute cholecystitis without obstruction; A09 Infectious gastroenteritis and colitis, unspecified; E87.6 Hypokalemia; E83.42 Hypomagnesemia; Z79.899 Other long term (current) drug therapy; Z88.0 Allergy status to penicillin; F17.200 Nicotine dependence, unspecified, uncomplicated; E83.39 Other disorders of phosphorus metabolism
CPT/HCPCS: 36415; 36416; 36592; 71045; 74177; 76705; 80053; 80069; 81001; 82962; 83605; 83690; 83735; 84100; 84702; 85025; 88304; 93005; 96365; 96366; 96367; 96372; 96374; 96375; 96376; 99291; J0744; J1100; J1170; J1200; J1650; J2250; J2405; J2470; J2704; J2710; J3010; J3475; J3480; J3490; J3535; J7030; P9045

== ENCOUNTER 2024-08-30 12:38 | Outpatient (CLI) | payer MEDICAID, SELFPAY ==
[2024-08-30 13:10] LABS: Alanine Aminotransferase 8 U/L (0-33); Albumin Level 2.6 g/dL (3.5-5.2); Alkaline Phosphatase 117 U/L (35-105); Anion Gap 15.3 (5-19); Aspartate Amino Transferase 20 U/L (0-32); Blood Urea Nitrogen 2 mg/dL (6-20); Calcium 7.5 mg/dL (8.5-10.5); Carbon Dioxide 22 mmol/L (22-29); Chloride 101 mmol/L (98-107); Globulin 2.7 g/dL (1.3-4.6); Glucose 110 mg/dL (65-115); Osmolality Calculated 277 mOsm/kg (285-295); Potassium 3.3 mmol/L (3.5-5.1); Sodium 135 mmol/L (136-145); Total Bilirubin 0.7 mg/dL (0.15-1.2); Total Protein 5.3 g/dL (6.6-8.7)
== END 2024-08-30 12:39 | disposition home or self-care (01) ==
LOC: RAD 12:40
PROVIDERS: PCP Nurse Practitioner Family; Visit Provider Family Medicine
DX: E87.1 Hypo-osmolality and hyponatremia (principal); E87.6 Hypokalemia
CPT/HCPCS: 36415; 80053

== ENCOUNTER 2024-09-01 10:46 | Inpatient (IN) | payer MEDICAID, SELFPAY ==
[2024-09-01] VITALS (21 sets, daily range): BP systolic 102–158; BP diastolic 61–103; PULSE 82–112; RESP 11–33; TEMP 36.6–36.8; O2SAT 91–99; BMI 23.5
[2024-09-01 12:13] LABS: Basophils # 0.1 10^3/uL (0.0-0.1); Basophils % 0.6 %; Eosinophils # 0.1 10^3/uL (0.0-0.8); Eosinophils % 1.1 %; Hematocrit 32.6 % (36-47); Lymphocytes # 2.6 10^3/uL (0.8-4.8); Lymphocytes % 25.9 %; Mean Corpuscular HGB Conc 33.1 g/dL (30-55); Mean Corpuscular Hemoglobin 30.8 pg (27-33); Mean Corpuscular Volume 92.9 fl (85-98); Mean Platelet Volume 10.2 fL (7.4-10.4); Monocytes % 9.7 %; Neutrophils % 61.9 %; Nucleated Red Blood Cells % 0 %; Platelet Count 517 10^3/cmm (157-399); Red Blood Count 3.51 10^6/uL (3.85-5.65); Red Cell Distribution Width 19.8 % (12.1-15.1); White Blood Count 10.18 10^3/uL (3.29-11.43)
--- NOTE | 2024-09-01 12:39 | CTR_ITS ---
PROCEDURE INFORMATION: Exam: CT Abdomen And Pelvis Without Contrast Exam date and time: 09/01/2024 1:17 PM Age: 43 years old Clinical indication: Abdominal pain; Generalized TECHNIQUE: Imaging protocol: Computed tomography of the abdomen and pelvis without contrast. Axial, coronal and sagittal reformatted images were created and reviewed. Radiation optimization: All CT scans at this facility use at least one of these dose optimization techniques: automated exposure control; mA and/or kV adjustment per patient size (includes targeted exams where dose is matched to clinical indication); or iterative reconstruction. COMPARISON: CT abdomen pelvis w con* [id number] 08/16/2024 2:03 PM RADIATION DOSE METRICS: Total DLP (mGy-cm): 505.87 FINDINGS: Lungs: Bibasilar discoid stranding and subsegmental consolidation, likely due to atelectasis. Pleural spaces: Small pleural effusions. Heart: Trace pericardial effusion. Liver: Mild hepatomegaly. Diffuse hepatic steatosis. Gallbladder and biliary ducts: Status post cholecystectomy. No biliary ductal dilatation. Pancreas: Unremarkable. Spleen: Unremarkable. Adrenal glands: Normal. No mass. Kidneys and ureters: No mass. No radiodense calculi. No hydronephrosis. Stomach and bowel: Liquefied stool and air-fluid levels in the colon. No definite bowel wall thickening. No obstruction. No pneumatosis. Appendix: Normal. Intraperitoneal space: Small nonspecific free pelvic fluid, likely physiologic. No organized fluid collection. No free air. Vasculature: Unremarkable. No aneurysm. Lymph nodes: No pathologically enlarged lymph nodes. Urinary bladder: Mild circumferential urinary bladder wall thickening, likely secondary to underdistention. Reproductive: Intrauterine device in place. Bones/joints: No acute osseous abnormality. Osteopenia. Mild degenerative changes. Soft tissues: Unremarkable. CT/CT abdomen pelvis wo con [id number] IMPRESSION: 1. Limited noncontrast examination. 2. Liquefied stool and air-fluid levels in the colon, suggestive of diarrheal illness. 3. Small pleural effusions. 4. Trace pericardial effusion. 5. Additional findings, as above.
[2024-09-01 12:40] LABS: Alanine Aminotransferase 9 U/L (0-33); Alkaline Phosphatase 132 U/L (35-105); Anion Gap 15.7 (5-19); Aspartate Amino Transferase 30 U/L (0-32); Blood Urea Nitrogen 2 mg/dL (6-20); Calcium 7.5 mg/dL (8.5-10.5); Carbon Dioxide 21 mmol/L (22-29); Chloride 103 mmol/L (98-107); Creatinine Clr Calc Pharmacy 163.4176; Globulin 2.6 g/dL (1.3-4.6); Glomerular Filtration Rate 173.4 mL/min (90-130); Glucose 111 mg/dL (65-115); Osmolality Calculated 279 mOsm/kg (285-295); Potassium 3.7 mmol/L (3.5-5.1); Sodium 136 mmol/L (136-145); Total Bilirubin 0.8 mg/dL (0.15-1.2); Total Protein 5.6 g/dL (6.6-8.7)
--- NOTE | 2024-09-01 12:40 | ED_ITS ---
HPI - Extremity Problem 2 General: Chief complaint: Extremity Problem,Nontraumatic Stated complaint: generalized swelling / loss of sensation Time Seen by Provider: 09/01/24 10:52 History of Present Illness: 43-year-old female who presents to the e mergency room with complaint of swelling in her extremities pain in her hands and feet. She says she can move her hands and feet if she looks at them but otherwise feels like she cannot move them. She also complaining of some mild abdominal discomfort she was admitted 2 weeks ago for colitis and acute cholecystitis they did take her gallbladder out she states she felt much better her diarrhea has resolved. She not had any fevers or chills she does have some mild left-sided abdominal pain no vomiting no dysuria urgency or frequency no hematuria no fever. Associated symptoms: Deny chest pain, fever(s) or rash Related Data Previous Rx's Medication Instructions Recorded metoclopramide HCl 10 mg tablet 10 mg PO Q6H PRN nausea and 08/05/24 (Reglan) vomiting #20 tabs potassium chloride 20 mEq 20 meq PO BID #14 tabs 08/05/24 tablet,extended release pantoprazole 40 mg tablet,delayed 40 mg PO BID 6 weeks #84 tabs 08/10/24 release (Protonix) ondansetron HCl 4 mg tablet 4 mg PO Q8H PRN nausea and 08/19/24 vomiting #40 tabs Allergies Allergy/AdvReac Type Severity Reaction Status Date / Time Penicillins Allergy ALGY-Rash Verified 09/01/24 11:31 Review of Systems 2 Const: Denies: fever(s) or chills Card: Denies: chest pain Resp: Denies: dyspnea GI: Reports: abdominal pain : Denies: dysuria, urinary frequency or urinary urgency Musc: Denies: neck pain or back pain Skin/Breast: Denies: rash PFSH ED 2 PFSH: Medical History Biliary colic Surgical History History of tubal ligation Family History Grandmother Breast cancer maternal Colon cancer maternal Hypercholesteremia maternal Hypertension maternal Mother Uterine cancer Grandfather Hypercholesteremia Hypertension maternal Denies family history of Ovarian cancer Diabetes mellitus type 1 Diabetes mellitus, type 2 Heart disease Thyroid disease Stroke Social History Smoking and tobacco/nicotine status: current every day tobacco/nicotine user Physical Exam 2 Const: GENERAL APPEARANCE: cooperative ORIENTATION/CONSCIOUSNESS: Yes awake, Yes oriented to person, Yes oriented to place and Yes oriented to time HENMT: COMMON NORMALS: normocephalic, atraumatic and hearing grossly normal bilaterally HEAD & SCALP: normocephalic and atraumatic Resp: COMMON NORMALS: normal respiratory effort, No retractions, No use of accessory muscles and clear to auscultation bilaterally AUSCULTATION: clear to auscultation bilaterally Cardio: COMMON NORMALS: regular rate, regular rhythm and No murmurs present (Cardio) RATE: regular rate RHYTHM: regular rhythm GI: COMMON NORMALS: Soft to palpation and No hepatosplenomegaly present A USCULTATION: Yes normoactive bowel sounds PALPATION: Yes Soft to palpation, No Tenderness to palpation present (GI), No Guarding due to palpation present (GI) and Yes No hepatosplenomegaly present Extremity: COMMON NORMALS: normal to inspection, capillary refill normal, no clubbing, cyanosis or edema, no calf tenderness and no pedal edema Neuro: SENSORIUM/ORIENTATION: Yes oriented to person, Yes oriented to place and Yes oriented to time Skin: COMMON NORMALS: no rashes or lesions noted GENERAL SKIN EXAM: no rashes or lesions noted Course 2 Vital Signs: Vital signs: Vital Signs Temperature 98 F 09/01/24 11:26 Pulse Rate 107 H 09/01/24 13:00 Respiratory Rate 21 H 09/01/24 13:00 Blood Pressure 123/86 09/01/24 13:30 Pulse Oximetry 98 09/01/24 13:00 Oxygen Delivery Me thod Room Air 09/01/24 11:26 MDM - Extremity (Nontraumatic) Medical Decision Making She has normal sensation to all extremities and does move all extremities although states she can only move them when she is directly looking at them. She has no focal neurologic deficits suggestive of a stroke at this time. No fever no leukocytosis hemoglobin is actually improved. Patient reporting pain in her extremities and along with intermittent numbness and tingling. Did observe her moving all [address] on observation discussed with hospitalist orders written. Considered Guillain-Mcnair?. Lab Data 09/01/24 12:07 09/01/24 12:07 Radiology Impressions Abdomen/Pelvis CT 09/01/24 12:39 IMPRESSION: 1. Limited noncontrast examination. 2. Liquefied stool and air-fluid levels in the colon, suggestive of diarrheal illness. 3. Small pleural effusions. 4. Trace pericardial effusion. 5. Additional findings, as above. Venous Duplex 09/01/24 13:14 IMPRESSION: No sonographic evidence of deep venous thrombosis. Laboratory Results WBC 10.18 10^3/uL (3.29-11.43) 09/01/24 12:07 RBC 3.51 10^6/uL (3.85-5.65) L 09/01/24 12:07 Hgb 10.80 g/dL (11.27-16.99) L 09/01/24 12:07 Hct 32.6 % (36-47) L 09/01/24 12:07 MCV 92.9 fl (85-98) 09/01/24 12:07 MCH 30.8 pg (27-33) 09/01/24 12:07 MCHC 33.1 g/dL (30-55) 09/01/24 12:07 RDW 19.8 % (12.1-15.1) H 09/01/24 12:07 Plt Count 517 10^3/cmm (157-399) H 09/01/24 12:07 MPV 10.2 fL (7.4-10.4) 09/01/24 12:07 Neut % (Auto) 61.9 % 09/01/24 12:07 Lymph % (Auto) 25.9 % 09/01/24 12:07 [place] % (Auto) 9.7 % 09/01/24 12:07 Eos % (Auto) 1.1 % 09/01/24 12:07 Baso % (Auto) 0.6 % 09/01/24 12:07 Neut # (Auto) 6.30 10^3/uL (1.8-7.7) 09/01/24 12:07 Lymph # (Auto) 2.6 10^3/uL (0.8-4.8) 09/01/24 12:07 [place] # (Auto) 1.0 10^3/uL (0.2-0.9) H 09/01/24 12:07 Eos # (Auto) 0.1 10^3/uL (0.0-0.8) 09/01/24 12:07 Baso # (Auto) 0.1 10^3/uL (0.0-0.1) 09/01/24 12:07 Nucleated RBC % (auto) 0 % 09/01/24 12:07 Nucleated RBCs # 0.0 /100WBC 09/01/24 12:07 ESR 10 mm/hr (0-15) 09/01/24 12:07 PT 15.10 SECONDS (12.1-14.9) H 09/01/24 16:49 INR 1.16 (0.8-1.2) 09/01/24 16:49 Sodium 136 mmol/L (136-145) 09/01/24 12:07 Potassium 3.7 mmol/L (3.5-5.1) 09/01/24 12:07 Chloride 103 mmol/L (98-107) 09/01/24 12:07 Carbon Dioxide 21 mmol/L (22-29) L 09/01/24 12:07 Anion Gap 15.7 (5-19) 09/01/24 12:07 BUN 2 mg/dL (6-20) L 09/01/24 12:07 Creatinine 0.4 mg/dL (0.5-0.9) L 09/01/24 12:07 GFR Calculation 173.4 mL/min (90-130) H 09/01/24 12:07 Glucose 111 mg/dL (65-115) 09/01/24 12:07 Calculated Osmolality 279 mOsm/kg (285-295) L 09/01/24 12:07 Calcium 7.5 mg/dL (8.5-10.5) L 09/01/24 12:07 Total Bilirubin 0.8 mg/dL (0.15-1.2) 09/01/24 12:07 AST 30 U/L (0-32) 09/01/24 12:07 ALT 9 U/L (0-33) 09/01/24 12:07 Alkaline Phosphatase 132 U/L (35-105) H 09/01/24 12:07 C-Reactive Protein 3.0 mg/L (0.0-4.9) 09/01/24 12:07 Total Protein 5.6 g/dL (6.6-8.7) L 09/01/24 12:07 Albumin 3.0 g/dL (3.5-5.2) L 09/01/24 12:07 Globulin 2.6 g/dL (1.3-4.6) 09/01/24 12:07 Lipase 17 U/L (13-60) 09/01/24 12:07 Procalcitonin 0.23 ng/mL (0-0.5) 09/01/24 12:07 Urine Color [place] (Yellow) A 09/01/24 13:10 Urine Appearance Cloudy (CLEAR) A 09/01/24 13:10 Urine pH 7.0 (5-7) 09/01/24 13:10 Ur Specific [place] 1.015 (1.005-1.030) 09/01/24 13:10 Urine Protein Trace (Negative) A 09/01/24 13:10 Urine Glucose (UA) Negative (Normal) 09/01/24 13:10 Urine Ketones Trace (Negative) 09/01/24 13:10 Urine Blood Negative (Negative) 09/01/24 13:10 Urine Nitrate Negative (Negative) 09/01/24 13:10 Urine Bilirubin 1+ (Negative) H 09/01/24 13:10 Urine Urobilinogen 1.0 mg/dL (Negative) 09/01/24 13:10 Ur Leukocyte Esterase 1+ (Negative) A 09/01/24 13:10 Urine RBC 0-2 /hpf (0-2) 09/01/24 13:10 Urine WBC 0-5 /hpf (0-5) 09/01/24 13:10 Ur Squamous Epith Cells 11-20 /hpf (0-5) 09/01/24 13:10 Amorphous Sediment Not Reportable 09/01/24 13:10 Urine Bacteria 1+ /hpf (NONE) H 09/01/24 13:10 Hyaline Casts 2.87 /lpf 09/01/24 13:10 All radiology interpretation(s) finalized by discharge Discharge Plan Discharge Patient Disposition: Admitted As Inpatient Clinical Impression: Weakness of extremity, Colitis Condition: Stable Prescriptions: No Action pantoprazole [Protonix] 40 mg tablet,delayed release (DR/EC) 40 mg PO BID 42 Days Qty: 84 1RF metoclopramide HCl [Reglan] 10 mg tablet 10 mg PO Q6H PRN (Reason: nausea and vomiting) Qty: 20 0RF potassium chloride 20 mEq tablet extended release 20 meq PO BID Qty: 14 0RF ondansetron HCl 4 mg tablet 4 mg PO Q8H PRN (Reason: nausea and vomiting) Qty: 40 0RF Referrals: Raya Milan FNP [Primary Care Provider] - Coding Level of Care Code ED [facility]ctor for Gregoria Mcclure
[2024-09-01 13:00] LABS: Lipase 17 U/L (13-60)
--- NOTE | 2024-09-01 13:14 | USR_ITS ---
PROCEDURE INFORMATION: Exam: US Duplex Lower Extremity Veins, Bilateral Exam date and time: 09/01/2024 2:07 PM Age: 43 years old Clinical indication: Edema, localized; Lower extremity, bilateral; Additional info: Leg swelling pain post op TECHNIQUE: Imaging protocol: Real-time duplex ultrasound of the bilateral extremities with 2-D robles scale, color Doppler flow and spectral waveform analysis including responses to compression and other maneuvers (when performed) with image documentation. Complete exam focused on the lower extremity veins. COMPARISON: US transvaginal [id number] 11/28/2023 9:21 AM FINDINGS: Right deep veins: Unremarkable. The common femoral, femoral, proximal profunda femoral, popliteal, posterior tibial and peroneal veins are patent without thrombus. Normal Doppler waveforms. Normal compressibility and/or augmentation response. Left deep veins: Unremarkable. The common femoral, femoral, proximal profunda femoral, popliteal, posterior tibial and peroneal veins are patent without thrombus. Normal Doppler waveforms. Normal compressibility and/or augmentation response. Superficial veins: Greater saphenous veins at the saphenofemoral junctions are patent bilaterally without thrombus. Soft tissues: Unremarkable. US/CV venous duplex [facility] [id number] IMPRESSION: No sonographic evidence of deep venous thrombosis.
[2024-09-01 13:53] LABS: Bilirubin Urine 1+ (Negative); Blood Urine Negative (Negative); Glucose Urine UA Negative (Normal); Ketones Urine Trace (Negative); Leukocyte Esterase Urine 1+ (Negative); Nitrate Urine Negative (Negative); Protein Urine Trace (Negative); Specific Gravity, Urine 1.015 (1.005-1.030); Urine Appearance Cloudy (CLEAR)
[2024-09-01 13:57] LABS: Add Urine Microscopic? YES; Bacteria Urine 1+ /hpf; Hyaline Casts Urine 2.87 /lpf; RBC Urine 0-2 /hpf (0-2); WBC Urine 0-5 /hpf (0-5)
[2024-09-01 13:58] LABS: Urine Color Orange (Yellow)
[2024-09-01 14:06] LABS: UA Slide Review UA Slide Review Perf
[2024-09-01] MEDS: ketorolac 30 mg/mL INJ IVP (15:16)
--- NOTE | 2024-09-01 15:38 | CTR_ITS ---
PROCEDURE INFORMATION: Exam: CT Head Without Contrast Exam date and time: 09/01/2024 5:21 PM Age: 43 years old Clinical indication: Weakness, extremity; Patient HX: Patient C/O weakness to all four extremities with swelling bilaterally to lower extremiteis. Recent hospitilization for sepsis. ; Additional info: Leg numbness TECHNIQUE: Imaging protocol: Computed tomography of the head without contrast. Axial, coronal and sagittal reformatted images were created and reviewed. Radiation optimization: All CT scans at this facility use at least one of these dose optimization techniques: automated exposure control; mA and/or kV adjustment per patient size (includes targeted exams where dose is matched to clinical indication); or iterative reconstruction. COMPARISON: CT cervical spin wo con* [id number] 09/01/2024 5:21 PM RADIATION DOSE METRICS: Total DLP (mGy-cm): 848.4 FINDINGS: Brain: Calcified meningioma along the inner table of the right frontal calvarium. No CT evidence of acute intracranial hemorrhage or acute territorial infarction. No significant mass effect or midline shift. Basal cisterns patent. Cerebral ventricles: Normal in size and configuration. Paranasal sinuses: Unremarkable. No fluid levels. Mastoid air cells: Grossly unremarkable. Bones: Unremarkable. No acute fracture. Soft tissues: Grossly unremarkable. CT/CT head wo con* [id number]: 1. No CT evidence of acute intracranial pathology. 2. Additional findings, as above.
[2024-09-01 15:44] LABS: Erythrocyte Sedimentation Rate 10 mm/hr (0-15)
[2024-09-01 16:03] LABS: Procalcitonin 0.23 ng/mL (0-0.5)
--- NOTE | 2024-09-01 16:13 | CTR_ITS ---
PROCEDURE INFORMATION: Exam: CT Lumbar Spine Without Contrast Exam date and time: 09/01/2024 5:25 PM Age: 43 years old Clinical indication: Prior surgery; Surgery date: 6+ months; Surgery type: Gb. Tubal; Patient HX: Patient C/O weakness to all four extremities with swelling bilaterally to lower extremiteis. Recent hospitilization for sepsis. TECHNIQUE: Imaging protocol: Computed tomography of the lumbar spine without contrast. Radiation optimization: All CT scans at this facility use at least one of these dose optimization techniques: automated exposure control; mA and/or kV adjustment per patient size (includes targeted exams where dose is matched to clinical indication); or iterative reconstruction. COMPARISON: CT thoracic spin wo con* [id number] 09/01/2024 5:25 PM RADIATION DOSE METRICS: Total DLP (mGy-cm): 454.6 FINDINGS: Bones/joints: No acute fracture. Normal alignment. Posterior disc bulge at L4-L5 with [id number] central canal stenosis. No significant neural foraminal narrowing. Soft tissues: Unremarkable. CT/CT lumbar spine wo con* [id number] IMPRESSION: No acute findings.
--- NOTE | 2024-09-01 16:13 | CTR_ITS ---
PROCEDURE INFORMATION: Exam: CT Cervical Spine Without Contrast Exam date and time: 09/01/2024 5:21 PM Age: 43 years old Clinical indication: Patient HX: Patient C/O weakness to all four extremities with swelling bilaterally to lower extremiteis. Recent hospitilization for sepsis. TECHNIQUE: Imaging protocol: Computed tomography of the cervical spine without contrast. Axial, coronal and sagittal reformatted images were created and reviewed. Radiation optimization: All CT scans at this facility use at least one of these dose optimization techniques: automated exposure control; mA and/or kV adjustment per patient size (includes targeted exams where dose is matched to clinical indication); or iterative reconstruction. COMPARISON: CT head wo con* [id number] 09/01/2024 5:21 PM RADIATION DOSE METRICS: Total DLP (mGy-cm): 1063.7 FINDINGS: Bones: Straightening of the normal cervical lordosis. No CT evidence of acute fracture, dislocation or subluxation. Alignment anatomic. Minimal dextroscoliosis. Vertebral body heights maintained. Mild multilevel spondylosis. Left C5-C6 disc protrusion, resulting in mild spinal canal and severe left neural foraminal stenosis. Lungs: Lung apices are normal. Soft tissues: Grossly unremarkable. CT/CT cervical spin wo con* [id number] IMPRESSION: 1. Left C5-C6 disc protrusion, resulting in mild spinal canal and severe left neural foraminal stenosis. 2. Additional findings, as above.
--- NOTE | 2024-09-01 16:31 | P.HP_ITS ---
Providers/Chief Complaint 2 Primary Care Provider: Raya Milan [employer] Chief Complaint: generalized swelling / loss of sensation History of Present Illness Radha Shabazz is a 43 year old female with recent hospitalization for septic shock, colitis, status post cholecystectomy, history of hypomagnesemia, who presents to [facility] due to weakness of bilateral legs, with lack of sensation, ascending weakness, to bilateral arms. Patient currently is alert oriented x 3, following all commands, she tells me that since her hospital discharge for her cholecystectomy she cannot walk, she cannot move bilateral legs, she tells me that she has developed paresthesias in her legs such that she can feel pain in her legs but she cannot sense that her legs are not there anymore, she can feel temperatures, she can feel my hand on her feet, but when she looks away, she loses sensation that her legs are there anymore, and she tells me that her weakness has been ascending for the last 2 weeks up to the hips, so much so that she cannot walk anymore and now it is in both arms, she has weakness of bilateral arms, and the similar paresthesias in both arms, she feels anxious, she denies any shortness of breath, no difficulty breathing, no nausea, no vomiting, no chest pain, no palpitations, no lightheadedness, no dizziness, no dysuria, she does report lower back pain no falls, no injuries, she has not received any vaccines recently, Review of Systems 2 Const: Reports: fatigue and malaise; Denies: fever(s) Card: Denies: chest pain Resp: Denies: dyspnea Neuro: Reports: numbness in extremities, weakness in extremities, sensory changes, lack of coordination and difficulty walking; Denies: headache(s), dizziness, vertigo, confusion, difficulty communicating thoughts, seizure-like activity, involuntary movements or restless legs Endo: Denies: polyuria Medications/Allergies Home Medications Medication Instructions Recorded Confirmed Last Taken Type metoclopramide HCl 10 mg tablet 10 mg PO Q6H PRN nausea and 08/05/24 08/16/24 Unknown Rx (Reglan) vomiting #20 tabs potassium chloride 20 mEq 20 meq PO BID #14 tabs 08/05/24 08/16/24 Unknown Rx tablet,extended release pantoprazole 40 mg tablet,delayed 40 mg PO BID 6 weeks #84 tabs 08/10/24 08/16/24 Unknown Rx release (Protonix) ondansetron HCl 4 mg tablet 4 mg PO Q8H PRN nausea and 08/19/24 Unknown Rx vomiting #40 tabs Allergies Allergy/AdvReac Type Severity Reaction Status Date / Time Penicillins Allergy ALGY-Rash Verified 09/01/24 11:31 PFSH Acute 2 PFSH: Medical History Biliary colic Surgical History History of tubal ligation Family History Grandmother Breast cancer maternal Colon cancer maternal Hypercholesteremia maternal Hypertension maternal Mother Uterine cancer Grandfather Hypercholesteremia Hypertension maternal Denies family history of Ovarian cancer Diabetes mellitus type 1 Diabetes mellitus, type 2 Heart disease Thyroid disease Stroke Social History Smoking and tobacco/nicotine status: current every day tobacco/nicotine user Vitals/I&O/Wt Last Vital Signs Temp 98 F 09/01/24 11:26 Pulse 107 H 09/01/24 13:00 Resp 21 H 09/01/24 13:00 BP 123/86 09/01/24 13:30 Pulse Ox 98 09/01/24 13:00 O2 Del Method Room Air 09/01/24 11:26 Weight last 48 hrs Weight 62.142 kg Physical Exam 2 Const: COMMON NORMALS: no acute distress and patient oriented x3 HENMT: COMMON NORMALS: normocephalic HEAD & SCALP: normocephalic Neck/C-Spine: COMMON NORMALS: no JVD Resp: COMMON NORMALS: normal respiratory effort, No retractions, No use of accessory muscles and clear to auscultation bilaterally AUSCULTATION: clear to auscultation bilaterally Cardio: COMMON NORMALS: regular rate, regular rhythm, S1 normal heart sound present and S2 normal heart sound present RATE: regular rate RHYTHM: r egular rhythm HEART SOUNDS: S1 normal heart sound present and S2 normal heart sound present GI: COMMON NORMALS: Normal to inspection, nondistended, normoactive bowel sounds present, Soft to palpation and non-tender PALPATION: Yes Soft to palpation Extremity: COMMON NORMALS: no calf tenderness NARRATIVE EXTREMITY EXAM: 1+ edema extremity Neuro: COMMON NORMALS: patient oriented x3, CN's II-XII intact bilaterally and moves all extremities OTHER: Bilateral extremity -On examination strength is significantl y diminished on bilateral lower extremities -With weakness on foot plantar and dorsi flexion and eversion inversion -Her ankle jerk reflexes are absent -Knee jerk reflexes are absent -Describes ascending weakness, -In terms of her sensation, Babinski's u pward going bilaterally she does sense my hand, stethoscope on her feet, on her calves, but since sensation is diminished, when she looks away she loses sensation of bilateral legs, terms of distinguishing sharp versus dull, her distinguishing capability is significantly diminished -Upper extremity examination -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 Thumb jerk reflexes diminished ? 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
--- NOTE | 2024-09-01 16:45 | CTR_ITS ---
PROCEDURE INFORMATION: Exam: CT Thoracic Spine Without Contrast Exam date and time: 09/01/2024 5:25 PM Age: 43 years old Clinical indication: Prior surgery; Surgery date: 6+ months; Surgery type: Gb; Patient HX: Patient C/O weakness to all four extremities with swelling bilaterally to lower extremiteis. Recent hospitilization for sepsis. TECHNIQUE: Imaging protocol: Computed tomography of the thoracic spine without contrast. Radiation optimization: All CT scans at this facility use at least one of these dose optimization techniques: automated exposure control; mA and/or kV adjustment per patient size (includes targeted exams where dose is matched to clinical indication); or iterative reconstruction. COMPARISON: CT lumbar spine wo con* [id number] 09/01/2024 5:25 PM RADIATION DOSE METRICS: Total DLP (mGy-cm): 454.6 FINDINGS: Bones/joints: No acute fracture. Normal alignment. No significant disc bulge or herniation. No severe spinal canal stenosis. No significant neural foraminal narrowing. Soft tissues: Unremarkable. Pleural spaces: Small volume pleural effusions, right greater than left, with posterior basilar atelectasis. CT/CT thoracic spin wo con* [id number] IMPRESSION: 1. No acute abnormalities of the thoracic spine. 2. Small volume pleural effusions, right greater than left, with posterior basilar atelectasis
[2024-09-01 17:11] LABS: INR 1.16 (0.8-1.2)
[2024-09-01 17:15] LABS: Lactic Sepsis W/Reflex 1.4 mmol/L (0.5-2.2)
[2024-09-01 17:34] LABS: NT Pro B Type Natriuretic Pept 370 pg/mL (0-125); Procalcitonin 0.22 ng/mL (0-0.5); Vitamin B12 779 pg/mL (232-1245)
[2024-09-01 17:36] LABS: Folate Level 2.8 ng/mL (4.8-37.3)
[2024-09-01 17:47] LABS: Alcohol Level < 10 mg/dL (0-10)
[2024-09-01] MEDS: morphine 4 mg/mL SDV 1 mL 2 MG IVP (18:12)
[2024-09-01] MEDS: orphenadrine 30 mg/mL Inj 2 mL 60 MG IVP (18:12)
--- NOTE | 2024-09-01 18:42 | PC.NURSE ---
arrived from ED, transferred to bed with lift sheet, able to move BLE with equal weakness and effort
[2024-09-01] MEDS: IMMUNE GLOBULIN IV (19:02)
[2024-09-01 19:20] LABS: Cholesterol 93 mg/dL (0-200); HDL Cholesterol 30 mg/dL (60-100); LDL Cholesterol Calculated 43 mg/dL (50-129); LDL HDL Ratio 1.43 RATIO (0.00-3.22); Thyroid Stimulating Hormone 4.77 uIU/mL (0.27-4.20); Triglycerides 100 mg/dL (0-150)
[2024-09-01 19:29] LABS: HIV 1 & 2 Antibody Non-Reactive (Non-Reactiv); HIV 1 & 2 Antigen Non-Reactive (Non-Reactiv)
--- NOTE | 2024-09-01 20:41 | PC.RESP ---
2029 FVC Pred 3.6 Actual 2.7 NIF -30
[2024-09-01] MEDS: cefTRIAXone 1,000 mg SDV 1000 MG IVP (20:49)
[2024-09-01] MEDS: ALPRAZolam 0.5 mg Tablet 1 MG PO (20:49)
[2024-09-01] MEDS: HYDROmorphone 1 mg/mL INJ 1 mL 0.5 MG IVP (20:50)
[2024-09-01] MEDS: pantoprazole 40 mg SDV IVP (20:52)
[2024-09-01] MEDS: sodium chloride 0.9% 1,000 ML 75 ML IV (20:52)
[2024-09-01 20:53] LABS: Estmated Average Glucose 82; Hemoglobin A1C 4.5 % (4.0-6.0)
[2024-09-01 21:07] LABS: Hepatitis A Antibody IgM Non-Reactive (Nonreactive); Hepatitis B Core IgM Non-Reactive (Nonreactive); Hepatitis C Virus Antibody Reactive (Nonreactive)
[2024-09-01 21:54] LABS: Amphetamines Screen Urine Negative (Negative); Barbiturates Screen Urine Negative (Negative); Benzodiazepines Screen Urine Negative (Negative); Cocaine Screen Urine Negative (Negative); Opiate Screen Urine Positive (Negative); PCP Screen Urine Negative (Negative); THC Screen Urine Negative (Negative)
[2024-09-01 22:31] LABS: Hepatitis B Surface Antigen Non-Reactive (Nonreactive)
[2024-09-02] VITALS (36 sets, daily range): BP systolic 107–134; BP diastolic 74–101; PULSE 87–121; RESP 14–26; TEMP 36.4–36.7; O2SAT 81–100; BMI 26.4
[2024-09-02] MEDS: HYDROmorphone 1 mg/mL INJ 1 mL 0.5 MG IVP ×6 (01:00→21:27)
--- NOTE | 2024-09-02 03:57 | PC.RESP ---
0357 09/02 FVC 2.02 NIF -25
[2024-09-02] MEDS: ALPRAZolam 0.5 mg Tablet 1 MG PO ×3 (05:01→21:28)
[2024-09-02 06:11] LABS: Basophils % 0.6 %; Eosinophils # 0.1 10^3/uL (0.0-0.8); Eosinophils % 2.2 %; Hematocrit 25.7 % (36-47); Lymphocytes # 1.7 10^3/uL (0.8-4.8); Lymphocytes % 26.1 %; Mean Corpuscular HGB Conc 32.3 g/dL (30-55); Mean Corpuscular Hemoglobin 30.5 pg (27-33); Mean Corpuscular Volume 94.5 fl (85-98); Mean Platelet Volume 9.7 fL (7.4-10.4); Monocytes # 0.7 10^3/uL (0.2-0.9); Monocytes % 11.3 %; Neutrophils # 3.82 10^3/uL (1.8-7.7); Neutrophils % 58.9 %; Nucleated Red Blood Cells % 0 %; Platelet Count 535 10^3/cmm (157-399); Red Blood Count 2.72 10^6/uL (3.85-5.65); Red Cell Distribution Width 19.7 % (12.1-15.1); White Blood Count 6.48 10^3/uL (3.29-11.43)
[2024-09-02 06:31] LABS: Alanine Aminotransferase < 5 U/L (0-33); Albumin Level 2.1 g/dL (3.5-5.2); Alkaline Phosphatase 105 U/L (35-105); Aspartate Amino Transferase 18 U/L (0-32); Blood Urea Nitrogen 4 mg/dL (6-20); Carbon Dioxide 22 mmol/L (22-29); Chloride 104 mmol/L (98-107); Globulin 3.3 g/dL (1.3-4.6); Glomerular Filtration Rate 173.4 mL/min (90-130); Glucose 90 mg/dL (65-115); Osmolality Calculated 278 mOsm/kg (285-295); Sodium 136 mmol/L (136-145); Total Bilirubin 0.6 mg/dL (0.15-1.2); Total Protein 5.4 g/dL (6.6-8.7)
[2024-09-02 06:34] LABS: Creatinine Clr Calc Pharmacy 172.3233
--- NOTE | 2024-09-02 07:51 | PC.NURSE ---
Received instruction in morning report to hold Lovenox for lumbar puncture scheduled for Monday 09/03.
[2024-09-02] MEDS: potassium chloride ER 20 mEq Tablet 40 MEQ PO (07:56)
--- NOTE | 2024-09-02 09:31 | PC.RESP ---
nif-28. poor effort
--- NOTE | 2024-09-02 11:25 | PC.RESP ---
1.75ml poor effort
--- NOTE | 2024-09-02 12:44 | PC.NURSE ---
Patient able to turn herself to sitting position on edge of bed. assisted patient up to BSC per patient's request. Patient tolerated well.
--- NOTE | 2024-09-02 13:09 | P.PN_ITS ---
Subjective 2 Subjective: Patient was seen this morning, is at bedside she is alert oriented x 3, following all commands, denies any fevers, chills, no cough no shortness of breath nor lightheadedness, no dizziness, she tells me that the strength of her bilateral lower extremities is improving, she has more sensation of her bilateral extremities, her strength of her upper extremities have significantly improved, her pain is more under control denies any lightheadedness, dizziness no headache we discussed performing a lumbar puncture tomorrow she is agreeable Vitals/I&O/Wt Last Vital Signs Temp 98.1 F 09/02/24 07:00 Pulse 98 09/02/24 12:00 Resp 22 H 09/02/24 12:55 BP 131/98 09/02/24 12:00 Pulse Ox 81 L 09/02/24 12:00 O2 Del Method Room Air 09/02/24 07:00 09/01/24 09/02/24 09/02/24 22:59 06:59 14:59 Intake Total 400 / 400 800 / 1200 1386.25 / 1386.25 Output Total 100 / 100 800 / 900 750 / 750 Balance 300 / 300 0 / 300 636.25 / 636.25 Weight last 48 hrs Weight 70 kg Weight 71 kg Weight 62.142 kg Physical Exam 2 Const: COMMON NORMALS: no acute distress and patient oriented x3 Resp: COMMON NORMALS: normal respiratory effort, No retractions, No use of accessory muscles and clear to auscultation bilaterally AUSCULTATION: clear to auscultation bilaterally Cardio: COMMON NORMALS: regular rate, regular rhythm, S1 normal heart sound present and S2 normal heart sound present RATE: regular rate RHYTHM: r egular rhythm HEART SOUNDS: S1 normal heart sound present and S2 normal heart sound present GI: COMMON NORMALS: Normal to inspection, nondistended, normoactive bowel sounds present and non-tender Extremity: COMMON NORMALS: no pedal edema NARRATIVE EXTREMITY EXAM: Patient strength in bilateral lower extremity improving she has better foot inversion eversion dorsi and plantarflexion, better movement of her calf muscles, better movement of her hip, better movement of her thighs, she continues to have no ankle jerk reflexes, no knee jerk reflex she does have better strength of her bilateral upper extremities, she does have better elbow jerk reflex but diminished, sensation of bilateral lower extremities is improved? 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 Monitor in ICU -NIF and FVC every 6 hours -check reflexes every 6 hours -Lumbar puncture ordered, CSF studies ordered - B1, folic acid, VDRL, -GQ 1 antibody -CT head, no acute findings -CT lumbar spine, no acute findings -CT thoracic spine, no acute findings -CT cervical spine 1. Left C5-C6 disc protrusion, resulting in mild spinal canal and severe left neural foraminal stenosis. -No neck pain complaints, no trauma, -Folic acid deficiency, 2.8 started on folic acid -IVIG daily for the next 5 days -Blood cultures -IV fluids -UTI, Rocephin -hep c antibody positive -Full code -Lovenox for DVT prophylaxis Will monitor respiratory status closely, spoke to Dr. 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
--- NOTE | 2024-09-02 13:16 | MRR_ITS ---
PROCEDURE INFORMATION: Exam: MR Cervical Spine Without Contrast Exam date and time: 09/02/2024 2:09 PM Age: 43 years old Clinical indication: Abnormal findings; Abnormal xray or scan of neck and cervical spine; Additional info: Disc protrusion TECHNIQUE: Imaging protocol: Magnetic resonance imaging of the cervical spine without contrast. COMPARISON: CT cervical spin wo con* [id number] 09/01/2024 5:21 PM FINDINGS: Bones/joints: Unremarkable. No fracture. Normal alignment. Spinal cord: Normal signal. No cord compression. C2-C3: No significant disc bulge or herniation. No severe spinal canal stenosis. No significant neural foraminal narrowing. C3-C4: No significant disc bulge or herniation. No severe spinal canal stenosis. No significant neural foraminal narrowing. C4-C5: No significant disc bulge or herniation. No severe spinal canal stenosis. No significant neural foraminal narrowing. C5-C6: Central to left paracentral disc protrusion causing mild thecal sac compression and severe narrowing of the left neural foramen. No significant right neural foraminal narrowing. C6-C7: No significant disc bulge or herniation. No severe spinal canal stenosis. No significant neural foraminal narrowing. C7-T1: No significant disc bulge or herniation. No severe spinal canal stenosis. No significant neural foraminal narrowing. Soft tissues: Unremarkable. Vasculature: Expected flow voids in the vertebral arteries. MR/MR cervical spin wo con* [id number] IMPRESSION: Central to left paracentral left C5-C6 disc protrusion causing mild thecal sac compression and severe left neural foraminal stenosis.
--- NOTE | 2024-09-02 14:09 | PC.NURSE ---
Patient taken to MRI via bed.
--- NOTE | 2024-09-02 16:33 | PC.RESP ---
nif -25 poor effort fvc 2.74 pred. 3.6
[2024-09-02] MEDS: IMMUNE GLOBULIN IV (17:16)
--- NOTE | 2024-09-02 18:42 | PC.NURSE ---
Spoke with Dr Melissa. Received telephone orders for Vancomycin pharmacy to dose and to obtain blood cultures now. JOHANNA
[2024-09-02] MEDS: cefTRIAXone 1,000 mg SDV 1000 MG IVP (21:27)
[2024-09-02] MEDS: pantoprazole 40 mg SDV IVP (21:27)
--- NOTE | 2024-09-02 22:15 | PC.RESP ---
2215 09/02/2024 FVC Pred 3.6 Actual 2.00 poor effort NIF -25 poor effort
[2024-09-02] MEDS: vancomycin 1,000 MG in sodium chloride 0.9% 250 ML 250 MG IV (23:08)
[2024-09-03] VITALS (36 sets, daily range): BP systolic 101–138; BP diastolic 65–101; PULSE 105–174; RESP 15–30; TEMP 36.7–37.1; O2SAT 86–99
[2024-09-03 03:42] LABS: Glucose Point of Care 112 mg/dL (70-110)
--- NOTE | 2024-09-03 04:04 | MRR_ITS ---
PROCEDURE INFORMATION: Exam: MR Head Without Contrast Exam date and time: 09/03/2024 5:05 PM Age: 43 years old Clinical indication: Altered mental status/memory loss and weakness, extremity and weakness, facial; Bilateral; Confusion or disorientation; Additional info: Weakness, transient speech difficulty TECHNIQUE: Imaging protocol: Magnetic resonance imaging of the head without contrast. COMPARISON: CT head wo con* [id number] 09/01/2024 5:21 PM FINDINGS: Brain: The robles-white matter signal is unremarkable. No evidence of diffusion restriction to suggest acute ischemia. 15 mm densely calcified meningioma at the right paramedian vertex. No mass effect or midline shift. Cerebral ventricles: No hydrocephalus. Bones: Unremarkable. Paranasal sinuses: The visualized paranasal sinuses are well aerated. Mastoid air cells: The mastoids and middle ears are grossly clear without evidence of effusion. Orbital cavities: The visualized orbits are unremarkable. Soft tissues: Grossly unremarkable. MR/MR head wo con* [id number] IMPRESSION: 1. No evidence of acute intracranial abnormality.
--- NOTE | 2024-09-03 04:07 | W.PM.EVENTAC ---
Event Note Event Note: Received notification that early this morning she was noted having some more unusual for her behaviors, including seeing dogs, spiders, throwing blanket on the ground toward them off, with some pressured speech, but also some words and sentence being unintelligible. Blood glucose checked and no hypoglycemia. I saw her shortly after. With turning on the lights she is awake, alert, calm, responding, oriented, able to tell me she is here due to the issue with her extremities with weakness, tingling, weakness so far has not improved, she has been started on treatment for Guillain-Mcnair?. She is not getting steroids. She barely ever has any alcohol, does not use any recreational substances. She is pleasant and cooperative, asks about going home. On neuro examination she follows directions readily, there is no detectable facial droop, no difficulty with horizontal tracking, visual andres are full to consultation bilaterally, no visual extinction, she has mild difficulty with FNF on the left side, minimal if any drift, sensory exam with mildly diminished sensation of the left side to light touch, no sensory extinction. She reports reports the symptoms are not changed from prior and have been present on admission, are not new. Bilateral lower extremities are weak, with the left side is slightly weaker with attempt to raise against gravity dropping to bed on the left side, with weakness and drift but able to hold his longer on the right. We discussed together with nursing staff with her and her , with visual hallucinations, does appear to have acute delirium, which may be possible in some cases of 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, but may be secondary to ICU delirium, or medications, she has been receiving Xanax, Dilaudid. These are held for further moment. There is no additional acute change. She denies any headache, no nausea or vomiting. No other new symptoms. Reviewed CT head from admission, no evidence of intracranial pathology. As per discussion we will obtain repeat CT in case of recurrence or persistence of symptoms. Additionally will for now hold off on any antipsychotics as it appears just turning on the light has helped somewhat with the delirium. Continue to reorient. However, in case of recurrent bothersome symptoms, agitation, etc., discussed risk versus benefit of antipsychotic administration with possible increased risk of mortality. At this point there is no compelling evidence for acute CVA or TIA, however, her symptoms are unchanged, she does have somewhat more pronounced weakness on the left side which may be secondary to Guillain-Mcnair? but will request additional assessment with MRI brain. Otherwise continue to monitor for any change in symptoms, in case of recurrence additional workup may be reasonable including CT head. Noted some tachycardia, would suspect related to anxiety and hallucination that she was having. Requested twelve-lead EKG.On my interpretation sinus tachycardia, I do not see inferior ischemia, T waves are not inverted. Does have a lot of artifact. Pending official read. Straight Forward/Low MDM includes described risk of complication, morbidity or mortality of management as documented and High MDM includes number and complexity of problems actively addressed during encounter and amount and/or complexity of data reviewed/ordered [ resulted lab(s)/test(s), ordered lab(s)/test(s), independent historian, independent test interpretation and other healthcare professional discussion] as documented
[2024-09-03] MEDS: vancomycin 1,000 MG in sodium chloride 0.9% 250 ML 250 MG IV ×2 (04:46→13:56)
[2024-09-03 05:29] LABS: Basophils % 0.6 %; Eosinophils # 0.1 10^3/uL (0.0-0.8); Eosinophils % 1.2 %; Hematocrit 26.7 % (36-47); Lymphocytes # 1.6 10^3/uL (0.8-4.8); Lymphocytes % 24.9 %; Mean Corpuscular HGB Conc 32.6 g/dL (30-55); Mean Corpuscular Hemoglobin 31.2 pg (27-33); Mean Corpuscular Volume 95.7 fl (85-98); Mean Platelet Volume 9.4 fL (7.4-10.4); Monocytes # 0.8 10^3/uL (0.2-0.9); Monocytes % 12.8 %; Neutrophils # 3.92 10^3/uL (1.8-7.7); Neutrophils % 59.9 %; Nucleated Red Blood Cells % 0 %; Platelet Count 573 10^3/cmm (157-399); Red Blood Count 2.79 10^6/uL (3.85-5.65); Red Cell Distribution Width 19.6 % (12.1-15.1); White Blood Count 6.55 10^3/uL (3.29-11.43)
[2024-09-03 05:45] LABS: Alanine Aminotransferase 6 U/L (0-33); Albumin Level 2.3 g/dL (3.5-5.2); Alkaline Phosphatase 109 U/L (35-105); Anion Gap 13.4 (5-19); Aspartate Amino Transferase 17 U/L (0-32); Blood Urea Nitrogen 5 mg/dL (6-20); Calcium 7.3 mg/dL (8.5-10.5); Carbon Dioxide 20 mmol/L (22-29); Chloride 108 mmol/L (98-107); Creatinine Clr Calc Pharmacy 137.8587; Globulin 4.1 g/dL (1.3-4.6); Glucose 102 mg/dL (65-115); Osmolality Calculated 283 mOsm/kg (285-295); Potassium 3.4 mmol/L (3.5-5.1); Sodium 138 mmol/L (136-145); Total Bilirubin 0.4 mg/dL (0.15-1.2); Total Protein 6.4 g/dL (6.6-8.7)
--- NOTE | 2024-09-03 05:53 | ECG_ITS ---
[facility] Date: 2024[facility]09[facility]03 Pat Name: Radha Shabazz Department: Room: [facility] Gender: Female Manager Of Care: : 1980 Requested By: Nilson Carter Order Number: [id number] Reading MD: Mark Rebolledo M.D. Measurements Intervals [place] Rate: 113 P: 77 W[place]: 132 QRS: 94 QRSD: 68 T: 74 QT: 402 QTc: 553 Interpretive Statements SINUS TACHYCARDIA BORDERLINE RIGHT AXIS DEVIATION [QRS AXIS > 90] LOW QRS VOLTAGE IN PRECORDIAL LEADS [QRS DEFLECTION < 1.0 mV IN CHEST LEADS] MODERATE T-WAVE ABNORMALITY, CONSIDER INFERIOR ISCHEMIA [-0.1+ mV T-WAVE IN II/aVF] Compared to ECG 08/16/2024 11:17:22 Low QRS voltage now present T-wave abnormality still present Possible ischemia still present Electronically Signed On 09-03-2024 14:14:07 CDT by Mark Rebolledo M.D. [email or web address]
--- NOTE | 2024-09-03 06:39 | PC.NURSE ---
At beginning of shift patient was alert and oriented x4, with intermittent need for reorientation as she would forget where she was. Patient became progressively anxious, having hallucinations (stated there were dogs in her room, spiders on her blankets), pulled IV out, constantly pulling at cords and lines, and eventually began using words inappropriately during conversations. Contacted Dr. Carter and made aware, he came to assess patient, new orders received. Patient has since began to calm, remains at bedside.
--- NOTE | 2024-09-03 07:26 | PHA.VACGOAL ---
Vancomycin Goal - Goal Vancomycin Goal:: 10-15 mg/L Vancomycin Indication:: Other - Therapy Current therapy:: Other Antibiotic (CEFTRIAXONE) Day of therpy:: Day 1 of [] Actual body weight (kg): 154 lb 5.177 oz [place] body weight: 54.7 Dosing weight (kg): 70 - Data Labs: WBC 6.55 10^3/uL (3.29-11.43) 09/03/24 04:52 RBC 2.79 10^6/uL (3.85-5.65) L 09/03/24 04:52 Hgb 8.70 g/dL (11.27-16.99) L 09/03/24 04:52 Hct 26.7 % (36-47) L 09/03/24 04:52 MCV 95.7 fl (85-98) 09/03/24 04:52 MCH 31.2 pg (27-33) 09/03/24 04:52 MCHC 32.6 g/dL (30-55) 09/03/24 04:52 RDW 19.6 % (12.1-15.1) H 09/03/24 04:52 Sodium 138 mmol/L (136-145) 09/03/24 04:52 Potassium 3.4 mmol/L (3.5-5.1) L 09/03/24 04:52 Chloride 108 mmol/L (98-107) H 09/03/24 04:52 Carbon Dioxide 20 mmol/L (22-29) L 09/03/24 04:52 Anion Gap 13.4 (5-19) 09/03/24 04:52 BUN 5 mg/dL (6-20) L 09/03/24 04:52 Creatinine 0.5 mg/dL (0.5-0.9) 09/03/24 04:52 GFR Calculation 134.0 mL/min (90-130) H 09/03/24 04:52 Last dialysis session:: N/A Treatment plan:: new consult Regimen:: INITIAL DOSE 1000 MG Q8H BASED ON DOSING PROTOCOL Follow up:: WILL CONTINUE TO MONITOR AND FOLLOW UP DAILY. TROUGH SCHEDULED 09/03 @ 1900.
[2024-09-03] MEDS: enoxaparin 40 mg/0.4 mL Syringe SUBCUT (09:05)
[2024-09-03] MEDS: HYDROmorphone 1 mg/mL INJ 1 mL 0.5 MG IVP ×2 (09:11→14:23)
--- NOTE | 2024-09-03 09:13 | PC.PHAR ---
patient was unsure of anything medication knowles, called sarah to verify
--- NOTE | 2024-09-03 10:32 | PM.CONSULT ---
Providers/Reason For Consult Consulting Physician/Specialty*: Hospitalist Reason for Consult*: Disc herniation on MRI Attending Physician: Adolph Marquez MD Primary Care Provider: Raya Milan History of Present Illness History of Present Illness Radha Shabazz is a 43 year old female who has been having progressive weakness starting her legs and ankles working her way up. Currently her arms are weak as well. This has been going on for approximately 3 weeks she stated. MRI was done which does show a disc bulge at C5-6 which extends behind the C6 vertebrae. Review of Systems Const: Reports: fatigue and malaise; Denies: fever(s) Card: Denies: chest pain Resp: Denies: dyspnea Neuro: Reports: numbness in extremities, weakness in extremities, sensory changes, lack of coordination and difficulty walking; Denies: headache(s), dizziness, vertigo, confusion, difficulty communicating thoughts, seizure-like activity, involuntary movements or restless legs Endo: Denies: polyuria Medications/Allergies Home Medications Medication Instructions Recorded Confirmed Last Taken Type cyclobenzaprine 5 mg tablet 5 mg PO TID 09/03/24 09/03/24 Unknown History diclofenac potassium 50 mg tablet 50 mg PO TID 09/03/24 09/03/24 Unknown History hydrochlorothiazide 12.5 mg capsule 1 mg PO DAILY 09/03/24 09/03/24 Unknown History hydroxyzine HCl 50 mg tablet 1 mg PO TID 09/03/24 09/03/24 Unknown History Allergies Allergy/AdvReac Type Severity Reaction Status Date / Time Penicillins Allergy ALGY-Rash Verified 09/01/24 11:31 Current Medications Generic Name Dose Route Start Last Admin Trade Name Freq PRN Reason Stop Dose Admin Alprazolam 1 mg 09/01/24 20:00 09/02/24 21:28 Alprazolam 0.5 Mg Tablet PO 1 mg TID PRN Administration ANXIETY Ceftriaxone Sodium 1,000 mg 09/01/24 20:00 09/02/24 21:27 Ceftriaxone 1,000 Mg Sdv IVP 1,000 mg Q24H AUREA Administration Protocol Hydromorphone HCl 0.5 mg 09/01/24 20:05 09/03/24 09:11 Hydromorphone 1 Mg/Ml Inj 1 Ml IVP 0.5 mg Q4H PRN Administration MODERATE TO SEVERE PAIN Immune Globulin/ Immune 300 mls @ 0 mls/hr 09/01/24 17:30 09/02/24 17:16 Globulin IV 21 mls/hr Q24H AUREA Administration Protocol As Directed Vancomycin HCl 1,000 mg/ 250 mls @ 250 mls/hr 09/02/24 20:00 09/03/24 06:35 Sodium Chloride IV Infused Q8H AUREA Infusion Pantoprazole Sodium 40 mg 09/01/24 21:00 09/02/24 21:27 Pantoprazole 40 Mg Sdv IVP 40 mg BEDTIME AUREA Administration PFSH Acute PFSH: Medical History Biliary colic Surgical History History of tubal ligation Family History Grandmother Breast cancer maternal Colon cancer maternal Hypercholesteremia maternal Hypertension maternal Mother Uterine cancer Grandfather Hypercholesteremia Hypertension maternal Denies family history of Ovarian cancer Diabetes mellitus type 1 Diabetes mellitus, type 2 Heart disease Thyroid disease Stroke Social History Smoking and tobacco/nicotine status: current every day tobacco/nicotine user Vitals/I&O/Wt Last Vital Signs Temp 98.8 F 09/03/24 02:00 Pulse 112 H 09/03/24 06:00 Resp 18 09/03/24 09:11 BP 118/84 09/03/24 06:00 Pulse Ox 97 09/03/24 09:11 O2 Del Method Room Air 09/02/24 15:00 09/02/24 09/03/24 09/03/24 22:59 06:59 14:59 Intake Total 760 / 2946.25 980 / 3926.25 Output Total 900 / 2250 700 / 2950 Balance -140 / 696.25 280 / 976.25 Weight last 48 hrs Weight 154 lb 5.177 oz Weight 154 lb 5.177 oz Weight 156 lb 8.451 oz Weight 137 lb Physical Exam Narrative: Patient does not have any strength in her lower extremities. When trying to get her to plantarflex she does not have any strength. 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 Her symptoms are more diffuse. With a disc herniation at expect more focal symptoms. Data 09/03/24 04:52 09/03/24 04:52 Micro: Microbiology 09/01/24 05:23 Blood Culture - Preliminary Blood NEGATIVE TO DATE 09/03/24 04:52 Blood Culture - Preliminary Blood SPECIMEN COLLECTED 09/02/24 19:10 Blood Culture - Preliminary Blood SPECIMEN COLLECTED 09/01/24 18:23 Blood Culture - Preliminary Blood A&P Assessment and plan (1) Weakness of extremity: I do not feel that the disc bulge in her neck is the reason for her symptoms. Consult Attestations Medical Necessity Statement: Per primary service Coding Level of Care Code Acute Code for Chg Fwd Diagnoses Weakness of extremity R29.898
--- NOTE | 2024-09-03 10:53 | PC.RESP ---
nif-24. poor effort
--- NOTE | 2024-09-03 11:56 | PC.RESP ---
fvc 2.16 pred 3.6 poor effort
[2024-09-03 13:20] LABS: COMPLEMENT, TOTAL (CH50) 28 U/mL (31-60)
[2024-09-03 14:04] LABS: Iron 26 ug/dL (37-145); Percent Saturation 27.3 % (20-50); Total Iron Binding Capacity 95 mcg/dl; Unsaturated Iron Binding 69 ug/dL (112-347)
[2024-09-03 14:11] LABS: Procalcitonin 0.14 ng/mL (0-0.5)
[2024-09-03] MEDS: sodium chloride 0.9% 1,000 ML 75 ML IV (14:19)
[2024-09-03 14:35] LABS: COMPLEMENT COMPONENT C3C 52 mg/dL (83-193); COMPLEMENT COMPONENT C4C 9 mg/dL (15-57)
[2024-09-03 15:44] LABS: CENTROMERE B ANTIBODY <1.0 NEG AI (<1.0 NEG); JO-1 ANTIBODY <1.0 NEG AI (<1.0 NEG); RNP ANTIBODY <1.0 NEG AI (<1.0 NEG); SCL-70 ANTIBODY <1.0 NEG AI (<1.0 NEG); SJOGREN'S ANTIBODY (SS-A) <1.0 NEG AI (<1.0 NEG); SM ANTIBODY <1.0 NEG AI (<1.0 NEG); SS-B <1.0 NEG AI (<1.0 NEG)
[2024-09-03] MEDS: acyclovir 1,000 MG in sodium chloride 0.9% 250 ML 270 MG IV (16:32)
--- NOTE | 2024-09-03 17:04 | P.PN_ITS ---
Subjective 2 Subjective: Hospital course, labs appreciated. Seen with family at bedside. On examination patient denies any nausea vomiting, headache. Denies any abdominal pain. Is awake and alert, complaining of anxiety. Asking if she could smoke. Vitals/I&O/Wt Last Vital Signs Temp 98.3 F 09/03/24 09:00 Pulse 128 H 09/03/24 15:13 Resp 18 09/03/24 15:13 BP 113/72 09/03/24 15:00 Pulse Ox 96 09/03/24 15:13 O2 Del Method Room Air 09/03/24 15:13 09/03/24 09/03/24 09/03/24 06:59 14:59 22:59 Intake Total 980 / 3926.25 120 / 120 Output Total 700 / 2950 Balance 280 / 976.25 120 / 120 Weight last 48 hrs Weight 70 kg Weight 70 kg Weight 71 kg Physical Exam 2 Const: COMMON NORMALS: no acute distress and patient oriented x3 HENMT: COMMON NORMALS: normocephalic HEAD & SCALP: normocephalic Neck/C-Spine: COMMON NORMALS: no JVD Resp: COMMON NORMALS: normal respiratory effort, No retractions, No use of accessory muscles and clear to auscultation bilaterally AUSCULTATION: clear to auscultation bilaterally Cardio: COMMON NORMALS: no JVD, regular rate, regular rhythm, S1 normal heart sound present and S2 normal heart sound present RATE: regular rate RHYTHM: regular rhythm HEART SOUNDS: S1 normal heart sound present and S2 normal heart sound present GI: COMMON NORMALS: Normal to inspection, nondistended, normoactive bowel sounds present, Soft to palpation and non-tender PALPATION: Yes Soft to palpation Extremity: COMMON NORMALS: no calf tenderness and no pedal edema NARRATIVE EXTREMITY EXAM: Patient strength in bilateral lower extremity improving she has better foot inversion eversion dorsi and plantarflexion, better movement of her calf muscles, better movement of her hip, better movement of her thighs, she continues to have no ankle jerk reflexes, no knee jerk reflex she does have better strength of her bilateral upper extremities, she does have better elbow jerk reflex but diminished, sensation of bilateral lower extremities is improved? Neuro: COMMON NORMALS: patient oriented x3, CN's II-XII intact bilaterally and moves all extremities OTHER: Bilateral extremity -On examination strength is significantl y diminished on bilateral lower extremities -With weakness on foot plantar and dorsi flexion and eversion inversion -Her ankle jerk reflexes are absent -Knee jerk reflexes are absent -Describes ascending weakness, -In terms of her sensation, Babinski's u pward going bilaterally she does sense my hand, stethoscope on her feet, on her calves, but since sensation is diminished, when she looks away she loses sensation of bilateral legs, terms of distinguishing sharp versus dull, her distinguishing capability is significantly diminished -Upper extremity examination -Bile rn cardiovascular icu strength significantly dimini shed bilaterally, bilateral shoulder strength is diminished ? Thumb jerk reflexes diminished ? 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 in setting of recent setting of sepsis. Did have concerns for altered mental status with hallucinations overnight. Seems to have resolved for now. Will consult neurology for further evaluation and management Continue with IVIG 400 mg/kg body weight. Monitor respiratory status. Monitor with daily NIF and FVC. Incentive spirometry and flutter valve. Physical therapy evaluation. Appreciate vitamin B12, folate, VDRL. HIV negative. Appreciate LALY panel for low complement levels. Thyroid peroxidase antibody pending. Urine toxicology appreciated. Recheck procalcitonin, check EBV, CMV, HSV antibody. Check MRI brain. Awaiting lumbar puncture. Follow-up blood cultures. Check urine bacterial antigen. Check MRSA swab. Check respiratory viral panel. Continue with IV ceftriaxone and vancomycin. Add acyclovir 1 g every 8 hourly. While on acyclovir start patient IV fluid normal saline at 75 cc/h. Change dose of ceftriaxone to 2 g every 12 hourly. Physical therapy evaluation. Out of bed to chair. Nicotine patch. Regular diet Full code Hold off on Lovenox for DVT prophylaxis given need for lumbar puncture. Will restart Lovenox after lung function. Protonix for PUD prophylaxis Attestations 2 Medical Necessity Statement*: requires further hospitalization for monitoring and management of AIDP with concerns for Guillain-Mcnair? 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
[2024-09-03 17:18] LABS: Adenovirus Not Detected (NOT DETECT); Chlamydia Pneumoniae Not Detected (NOT DETECT); Coronavirus 229E,HKU1,NL63,OC4 Not Detected (NOT DETECT); Human Metapneumovirus Not Detected (NOT DETECT); Human Rhinovirus/Enterovirus Not Detected (NOT DETECT); Influenza A Not Detected (NOT DETECT); Influenza A H1 Not Detected (NOT DETECT); Influenza A H1-2009 Not Detected (NOT DETECT); Influenza A H3 Not Detected (NOT DETECT); Influenza B Not Detected (NOT DETECT); Mycoplasma Pneumoniae Not Detected (NOT DETECT); Parainfluenza Virus Type 1 Not Detected (NOT DETECT); Parainfluenza Virus Type 2 Not Detected (NOT DETECT); Parainfluenza Virus Type 3 Not Detected (NOT DETECT); Parainfluenza Virus Type 4 Not Detected (NOT DETECT); Respiratory Syncytial Virus A Not Detected (NOT DETECT); Respiratory Syncytial Virus B Not Detected (NOT DETECT); SARS-COV-2 Not Detected (NOT DETECT)
[2024-09-03] MEDS: ALPRAZolam 0.5 mg Tablet 1 MG PO (17:40)
[2024-09-03] MEDS: folic acid 1 mg Tablet PO (17:40)
[2024-09-03] MEDS: cefTRIAXone 2,000 mg SDV 2000 MG IVP (19:01)
[2024-09-03] MEDS: IMMUNE GLOBULIN 30 GM/300 ML IV (19:27)
[2024-09-03 22:10] LABS: Vancomycin Trough 20.9 ug/mL (10-15)
[2024-09-03 22:24] LABS: Rapid Plasma Reagin Syphilis Reactive (Nonreactive)
[2024-09-03] MEDS: pantoprazole 40 mg SDV IVP (23:06)
--- NOTE | 2024-09-03 23:36 | PC.NURSE ---
Vancomycin: Vanc trough 20.9, contacted pharmacy for instruction. Ordered to hold dose while they evaluated. Received call later stating they pushed dose back to 0200 and they would leave instruction for pharmacy to evaluate during the day.
[2024-09-04] VITALS (52 sets, daily range): BP systolic 86–188; BP diastolic 70–102; PULSE 105–141; RESP 9–34; TEMP 36.4–36.7; O2SAT 77–100
[2024-09-04] MEDS: acyclovir 1,000 MG in sodium chloride 0.9% 250 ML 270 MG IV (02:13)
[2024-09-04] MEDS: vancomycin 1,000 MG in sodium chloride 0.9% 250 ML 250 MG IV ×3 (03:40→23:01)
[2024-09-04] MEDS: HYDROmorphone 1 mg/mL INJ 1 mL 0.5 MG IVP ×3 (03:45→15:47)
[2024-09-04 04:22] LABS: Basophils % 0.4 %; Eosinophils # 0.1 10^3/uL (0.0-0.8); Eosinophils % 1.3 %; Hematocrit 25.8 % (36-47); Lymphocytes # 1.9 10^3/uL (0.8-4.8); Lymphocytes % 27.9 %; Mean Corpuscular HGB Conc 32.9 g/dL (30-55); Mean Corpuscular Hemoglobin 31.4 pg (27-33); Mean Corpuscular Volume 95.2 fl (85-98); Mean Platelet Volume 9.8 fL (7.4-10.4); Monocytes # 0.8 10^3/uL (0.2-0.9); Monocytes % 11.4 %; Neutrophils # 4.03 10^3/uL (1.8-7.7); Neutrophils % 58.4 %; Nucleated Red Blood Cells % 0 %; Platelet Count 553 10^3/cmm (157-399); Red Blood Count 2.71 10^6/uL (3.85-5.65); Red Cell Distribution Width 19.7 % (12.1-15.1); White Blood Count 6.91 10^3/uL (3.29-11.43)
[2024-09-04 04:41] LABS: Alanine Aminotransferase < 5 U/L (0-33); Albumin Level 2.2 g/dL (3.5-5.2); Alkaline Phosphatase 103 U/L (35-105); Anion Gap 13.4 (5-19); Aspartate Amino Transferase 16 U/L (0-32); Blood Urea Nitrogen 4 mg/dL (6-20); Calcium 7.2 mg/dL (8.5-10.5); Carbon Dioxide 19 mmol/L (22-29); Chloride 111 mmol/L (98-107); Creatinine Clr Calc Pharmacy 172.3233; Globulin 4.2 g/dL (1.3-4.6); Glomerular Filtration Rate 173.4 mL/min (90-130); Glucose 100 mg/dL (65-115); Osmolality Calculated 287 mOsm/kg (285-295); Potassium 3.4 mmol/L (3.5-5.1); Sodium 140 mmol/L (136-145); Total Bilirubin 0.5 mg/dL (0.15-1.2); Total Protein 6.4 g/dL (6.6-8.7)
[2024-09-04 04:47] LABS: Magnesium 1.5 mg/dL (1.7-2.3)
[2024-09-04] MEDS: sodium chloride 0.9% 1,000 ML 75 ML IV ×2 (05:08→23:01)
[2024-09-04] MEDS: cefTRIAXone 2,000 mg SDV 2000 MG IVP ×2 (05:08→17:36)
[2024-09-04] MEDS: ALPRAZolam 0.5 mg Tablet 1 MG PO ×3 (07:21→23:00)
--- NOTE | 2024-09-04 08:36 | P.CONIM_ITS ---
Providers/Reason For Consult 2 Consulting Physician/Specialty*: Jadiel Persaud MD neurology and epilepsy Reason for Consult*: Acute inflammatory demyelinating polyneuropathy (AIDP) Attending Physician: Adolph Marquez MD Primary Care Provider: Raya Milan History of Present Illness History of Present Illness Radha Shabazz is a 43 year old female who reports experiencing gallbladder issues in February 2024. According to the patient's the patient experienced septic shock. The stated the patient was in the intensive care unit for several days. The patient underwent cholecystectomy. Following the cholecystectomy the patient was reported to feel better but presented to the [facility] emergency room on 09/01/2024 complaining of inability to move her legs. The patient stated that she began experiencing numbness and tingling in her toes which continued to spread up her legs to involve her hands and shoulders. The patient was admitted to the intensive care unit on 11/03/2024 and started on IVIG for clinical symptoms suggestive of acute inflammatory demyelinating polyneuropathy. Head CT scan 09/01/2024 was reported to be unrevealing. Cervical CT scan revealed left C5-C6 central disc protrusion with severe left foraminal stenosis at C5-C6. Cervical MRI revealed similar findings. Head MRI 09/03/[address] Thoracic CT 09/01/2024 was reported to be negative. Lumbar CT reported to be negative. Metabolic lab for CBC, comprehensive metabolic panel, magnesium, and iron revealed anemia, slightly decreased magnesium of 1.5. The patient has been scheduled for lumbar puncture 09/04/2024 by radiology under fluoroscopy. According to the patient, since starting IVIG she has been able to lift her legs against gravity and arms against gravity. Patient still complains of weakness generalized. Drug allergies: Penicillin which resulted in a rash Current medications: IVIG infusion Flexeril 5 mg p.o. 3 times daily Diclofenac 50 mg p.o. 3 times daily Hydrochlorothiazide Hydroxyzine Past medical history: Cholecystectomy Colitis Septic shock Hyponatremia Hypophosphatemia Anemia Chronic pelvic pain Cervical disks protrusion centrally C5-C6 with severe left foraminal stenosis Habits: The patient smokes 1/2 pack/day. The patient denied other drug use. The patient was educated on potential health risk associated with smoking. Family history: Negative for Raya Mcnair? Medications/Allergies Home Medications Medication Instructions Recorded Confirmed Last Taken Type cyclobenzaprine 5 mg tablet 5 mg PO TID 09/03/24 09/03/24 Unknown History diclofenac potassium 50 mg tablet 50 mg PO TID 09/03/24 09/03/24 Unknown History hydrochlorothiazide 12.5 mg capsule 1 mg PO DAILY 09/03/24 09/03/24 Unknown History hydroxyzine HCl 50 mg tablet 1 mg PO TID 09/03/24 09/03/24 Unknown History Allergies Allergy/AdvReac Type Severity Reaction Status Date / Time Penicillins Allergy ALGY-Rash Verified 09/01/24 11:31 Current Medications Generic Name Dose Route Start Last Admin Trade Name Freq PRN Reason Stop Dose Admin Alprazolam 1 mg 09/01/24 20:00 09/04/24 07:21 Alprazolam 0.5 Mg Tablet PO 1 mg TID PRN Administration ANXIETY Ceftriaxone Sodium 2,000 mg 09/03/24 17:45 09/04/24 05:08 Ceftriaxone 2,000 Mg Sdv IVP 2,000 mg Q12H AUREA Administration Protocol Folic Acid 1 mg 09/03/24 18:00 09/03/24 17:40 Folic Acid 1 Mg Tablet PO 1 mg BID AUREA Administration Hydromorphone HCl 0.5 mg 09/01/24 20:05 09/04/24 03:45 Hydromorphone 1 Mg/Ml Inj 1 Ml IVP 0.5 mg Q4H PRN Administration MODERATE TO SEVERE PAIN Sodium Chloride 1,000 mls @ 75 mls/hr 09/03/24 13:45 09/04/24 05:08 Sodium Chloride 0.9% IV 75 mls/hr .[id number] AUREA Administration Immune Globulin 30 gm in 300 mls @ 0 mls/hr 09/03/24 17:30 09/03/24 19:27 Privigen IV 21 mls/hr Q24H AUREA 21 mls/hr Administration Protocol As Directed Acyclovir 1,000 mg/ Sodium 270 mls @ 270 mls/hr 09/04/24 00:30 09/04/24 04:46 Chloride IV Infused Q8H AUREA Infusion Vancomycin HCl 1,000 mg/ 250 mls @ 250 mls/hr 09/04/24 02:00 09/04/24 05:23 Sodium Chloride IV Infused Q8H AUREA Infusion Pantoprazole Sodium 40 mg 09/01/24 21:00 09/03/24 23:06 Pantoprazole 40 Mg Sdv IVP 40 mg BEDTIME AUREA Administration PFSH Acute 2 PFSH: Medical History Biliary colic Surgical History History of tubal ligation Family History Grandmother Breast cancer maternal Colon cancer maternal Hypercholesteremia maternal Hypertension maternal Mother Uterine cancer Grandfather Hypercholesteremia Hypertension maternal Denies family history of Ovarian cancer Diabetes mellitus type 1 Diabetes mellitus, type 2 Heart disease Thyroid disease Stroke Social History Smoking and tobacco/nicotine status: current every day tobacco/nicotine user Vitals/I&O/Wt Last Vital Signs Temp 98.1 F 09/04/24 02:00 Pulse 128 H 09/04/24 06:00 Resp 22 H 09/04/24 06:00 BP 114/84 09/04/24 06:00 Pulse Ox 97 09/04/24 03:45 O2 Del Method Room Air 09/03/24 15:13 09/03/24 09/04/24 09/04/24 22:59 06:59 14:59 Intake Total 540 / 660 1520 / 2180 Output Total 400 / 400 400 / 800 Balance 140 / 260 1120 / 1380 Weight last 48 hrs Weight 159 lb 13.362 oz Weight 154 lb 5.177 oz Physical Exam 2 Narrative: Blood pressure 114/84 heart rate 128 respirations 22 temperature 98.1 ?F O2 saturation 97% on room air The patient is alert and oriented x 3. Speech fluent. Head normocephalic. Neck neck supple. Cranial nerves II through XII intact. I did not observe any obvious facial weakness. Pupils 3 mm round reactive to light and accommodation. Extraocular movements intact. Motor testing 3/5 in the upper and lower extremities bilaterally. Deep tendon reflexes appear to be areflexia. Plantar responses flexor bilaterally. There was no clonus. Sensory examination was intact to touch. Throat clear. Lungs clear. Heart regular rhythm with increased rate. Extremities revealed lower extremity edema. There was no cyanosis. Data 09/04/24 03:43 09/04/24 03:43 Micro: Microbiology 09/03/24 04:52 Blood Culture - Preliminary Blood NEGATIVE TO DATE 09/02/24 19:10 Blood Culture - Preliminary Blood NEGATIVE TO DATE 09/03/24 16:40 Bacterial Antigens - Final Urine Kidney 09/01/24 05:23 Blood Culture - Preliminary Blood NEGATIVE TO DATE A&P Assessment and plan (1) AIDP (acute inflammatory demyelinating polyneuropathy): Impression: 1. Acute inflammatory demyelinating polyneuropathy (AIDP), clinically. Note: Patient reports improvement in her weakness since starting IVIG 2. Central to left paracentral left C5-C6 disc protrusion causing mild thecal sac compression and severe left neural foraminal stenosis. Plan: 1. Agree with IVIG 400 mg/kg/day for total of 5 days 2. Forced vital capacities twice a day and contact attending physician if forced vital capacity less than 2 L 3. Agree with lumbar puncture under fluoroscopy by radiology to assess for infection 4. Recommend occupational therapy, and physical therapy and speech therapy 5. Fall precautions 6. Vital signs and neurochecks per ICU protocol 7. Consider another round of IVIG if needed or consider plasma exchange if needed Consult Attestations 2 Medical Necessity Statement: The patient was evaluated by neurology for generalized weakness/AIDP Coding Level of Care Code 87309 Diagnoses AIDP (acute inflammatory demyelinating polyneuropathy) G61.0
--- NOTE | 2024-09-04 09:00 | FL_ITS ---
WS: [id number] LUMBAR PUNCTURE CLINICAL INFORMATION: gbs COMPARISON: None. TECHNIQUE: Informed consent: The procedure and its potential risk and complications were discussed with the ron ent. Verbal and written consent was obtained. Timeout: A timeout was performed to confirm correct patient, procedure, and site. Patient was prepped and draped in the usual sterile fashion. Lidocaine 1% was used for local anesthes ia. Utilizing fluoroscopic guidance, a 3.5 inch 22-gauge spinal needle was advanced into the subarach noid space at L3-L4 via LEFT oblique sublaminar approach. Free flow of clear CSF was obtained. 13 cc of CSF was collected and sent the lab for further analysis. FLUOROSCOPIC TIME: 0min [id number] # of spot films: 1 FL/FL guided lumbarpunc dx* [id number] IMPRESSION: 1. Fluoroscopically guided lumbar puncture. No immediate complications 2. 13 cc clear CSF collected and sent to the lab for further analysis 3. Opening pressure 19 cmH2O
[2024-09-04] MEDS: magnesium sulfate premix 1 GM/100 ML PIGGYBACK IV (09:53)
[2024-09-04] MEDS: metoprolol tartrate 25 mg Tablet PO ×2 (09:57→20:14)
[2024-09-04] MEDS: potassium chloride ER 20 mEq Tablet 40 MEQ PO (09:57)
[2024-09-04] MEDS: nicotine 21 mg Patch 1 PATCH TRANSDERMA (09:58)
[2024-09-04] MEDS: folic acid 1 mg Tablet PO ×2 (09:58→17:41)
[2024-09-04 10:22] LABS: Cyto Order Verification No Order
[2024-09-04 10:23] LABS: Appearance CSF CLEAR (CLEAR); Color CSF COLORLESS (COLORLESS); Pathology Referral Yes
[2024-09-04 10:30] LABS: CSF Specific Gravity 1.005
[2024-09-04 10:31] LABS: Red Blood Cell CSF 0 10^3/uL (0-0); White Blood Cell CSF 0 /uL (0-5)
--- NOTE | 2024-09-04 10:32 | PC.RESP ---
pred 3.6 fvc 2.18 nif -24
[2024-09-04 10:42] LABS: Glucose CSF 57 mg/dL (40-70); Total Protein CSF 46 mg/dL (15-45)
--- NOTE | 2024-09-04 10:44 | MR_ITS ---
WS: [id number] MRI THORACIC SPINE WITH CONTRAST TECHNIQUE: Sagittal T1, T2 and STIR imaging. Axial T2 imaging. Post gadolinium imaging was obtained. CLINICAL INFORMATION: possible aidp vs transvere myelitis COMPARISON: None. FINDINGS: Mild thoracic curve. Mild thoracic kyphosis. Mild disc bulging T11-T12 with slight effacement of the ventral thecal sac. No high-grade central canal stenosis. No abnormal gadolinium enhancement. Cord si gnal appears normal considering motion artifact. No visualized lesions in the thoracic cord. Adrenal glands are normal. Small bilateral pleural effusions with bibasilar atelectasis. MR/MR thoracic spine wo/w [id number] IMPRESSION: Images degraded by motion. 1. No lesions in the thoracic cord considering motion artifact. 2. No abnormal gadolinium enhancement. 3. Mild disc bulging T11-T12. 4. No significant central canal stenosis.
[2024-09-04] MEDS: acyclovir 1,000 MG in sodium chloride 0.9% 250 ML 250 MG IV (10:47)
[2024-09-04 12:14] LABS: EBV IGG TEST >750.00 U/mL; EBV IGM TEST <36.00 U/mL; EBV Nuclear AG >600.00 U/mL; HSV 2 IGG Type Specific AB 5.98 index
[2024-09-04] MEDS: HYDROcodone-acetaminophen 5-325 mg Tablet 1 TAB PO ×2 (13:42→20:14)
--- NOTE | 2024-09-04 13:56 | ECG_ITS ---
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1980 Requested By: Adolph Marquez Order Number: [id number] Reading MD: RYLEY SCHWAB Measurements Intervals [place] Rate: 108 P: 29 ND: 150 QRS: 45 QRSD: 70 T: 64 QT: 379 QTc: 510 Interpretive Statements SINUS TACHYCARDIA LOW QRS VOLTAGE IN EXTREMITY LEADS [QRS DEFLECTION < 0.5 mV IN LIMB LEADS] SEPTAL MYOCARDIAL INFARCTION , OF INDETERMINATE AGE [40+ ms Q WAVE IN V1/V2] Compared to ECG 09/03/2024 05:53:45 Myocardial infarct finding now present T-wave abnormality no longer present Possible ischemia no longer present Electronically Signed On 09-08-2024 18:23:52 CDT by RYLEY SCHWAB [email or web address]
[2024-09-04 14:59] LABS: ANA SCREEN, IFA NEGATIVE (NEGATIVE)
[2024-09-04 15:09] LABS: Cytomegalovirus Antibody (IGG) >10.00 U/mL; Cytomegalovirus Antibody (IGM) <30.00 AU/mL
--- NOTE | 2024-09-04 16:28 | PM.PN ---
Subjective Subjective: No acute events overnight. Today morning seen with spouse at bedside. Patient remains on room air. Denies any nausea, vomiting, headache. States she is feeling as if she is getting slightly stronger. Vitals/I&O/Wt Last Vital Signs Temp 97.8 F 09/04/24 11:00 Pulse 114 H 09/04/24 15:00 Resp 24 H 09/04/24 15:47 BP 118/77 09/04/24 15:00 Pulse Ox 97 09/04/24 15:47 O2 Del Method Room Air 09/03/24 15:13 09/04/24 09/04/24 09/04/24 06:59 14:59 22:59 Intake Total 1520 / 2180 430 / 430 Output Total 400 / 800 Balance 1120 / 1380 430 / 430 Weight last 48 hrs Weight 72.5 kg Weight 70 kg Physical Exam Const: COMMON NORMALS: no acute distress, patient oriented x3 and alert ORIENTATION/CONSCIOUSNESS: Yes oriented to person and Yes oriented to place HENMT: COMMON NORMALS: normocephalic HEAD & SCALP: normocephalic Neck/C-Spine: COMMON NORMALS: no meningeal signs and no JVD Resp: COMMON NORMALS: normal respiratory effort, No retractions, No use of accessory muscles and clear to auscultation bilaterally AUSCULTATION: clear to auscultation bilaterally Cardio: COMMON NORMALS: no JVD, regular rate, regular rhythm, S1 normal heart sound present and S2 normal heart sound present RATE: regular rate RHYTHM: regular rhythm HEART SOUNDS: S1 normal heart sound present and S2 normal heart sound present GI: COMMON NORMALS: Normal to inspection, nondistended, normoactive bowel sounds present, Soft to palpation and non-tender PALPATION: Yes Soft to palpation Extremity: COMMON NORMALS: no calf tenderness and no pedal edema Neuro: LUCHO COMA SCALE: document GCS findings [place] coma scale eye opening: Spontaneous [place] coma scale verbal response: Orientated [place] coma scale motor response: Obey commands [place] coma scale total score: 15 COMMON NORMALS: patient oriented x3 and moves all extremities SENSORIUM/ORIENTATION: Yes alert, Yes oriented to person and Yes oriented to place MENINGEAL SIGNS: Yes no meningeal signs MOTOR EXAM: no tremor noted, no asterixis and No Motor fasciculations not present OTHER: Pupils bilaterally equal and reactive, motor testing 3/5 bilateral upper limb, lower limb 2/5 bilaterally, Deep tendon reflexes?areflexia, no fasciculation no clonus Psych: COMMON NORMALS: mental status grossly normal Data 09/04/24 03:43 09/04/24 03:43 Micro: Microbiology 09/04/24 09:25 Gram Stain - Final Cerebrospinal Fluid 09/03/24 04:52 Blood Culture - Preliminary Blood NEGATIVE TO DATE 09/02/24 19:10 Blood Culture - Preliminary Blood NEGATIVE TO DATE 09/03/24 16:40 Bacterial Antigens - Final Urine Kidney A&P Assessment and plan (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 Cannot rule out though unlikely transverse mellitus given patient's symptoms and bilateral upper limb trances of transverse mellitus would be at a higher level. Appreciate MRI and neck without any concerns for transverse mellitus. Will check MRI with and without contrast of thoracic spine. 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 in setting of recent setting of sepsis. Did have concerns for altered mental status with hallucinations overnight. Seems to have resolved for now. Appreciate neurology recommendations. Continue with IVIG 400 mg/kg body weight for overall 5-day course. Depending on the clinical improvement will plan for further 5 days versus possible plasmapheresis. Monitor respiratory status. Monitor with daily NIF and FVC. Incentive spirometry and flutter valve. Physical therapy evaluation. Appreciate vitamin B12, folate, VDRL. HIV negative. Appreciate LALY panel for low complement levels. Thyroid peroxidase antibody pending. Urine toxicology negative EBV, CMV, HSV studies consistent with past infection. RPR reactive. Treponema confirmatory test sent out Appreciate MRI brain results. Lumbar puncture appreciated for bland CSF. Follow-up other CSF studies. Will follow-up CSF cultures for overall 48 hours. If remain negative we will plan to discontinue IV antibiotics. Bacterial antigen negative. MRSA swab pending. Respiratory viral panel negative. For now continue with IV ceftriaxone and vancomycin as per meningitis dosage. Stop acyclovir. Tachycardia: Sinus. Check EKG. Patient denies any pain, has remained afebrile. Does complain of mild anxiety to patient is on Xanax 1 mg 3 times daily as needed. Hydroxyzine at as needed dose. Start on [place] 5 mg every 6 hours as needed, Dilaudid to be changed to 0.5 every 8 as needed. Metoprolol 25 mg twice daily. Echocardiogram. Physical therapy evaluation. Out of bed to chair. Nicotine patch. Regular diet Full code Hold off on Lovenox for DVT prophylaxis given need for lumbar puncture. Will restart Lovenox after lung function. Protonix for PUD prophylaxis Attestations Medical Necessity Statement*: Requires further hospitalization for management of bilateral ascending paralysis with concerns for AIDP/Guillain-Mcnair? 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
[2024-09-04] MEDS: gadobenate dimeglumine 20 mL vial 15 ML IV (16:36)
[2024-09-04] MEDS: IMMUNE GLOBULIN IV (17:22)
[2024-09-04] MEDS: water for injection-sterile 20 ML 100 ML (17:40)
--- NOTE | 2024-09-04 18:09 | PC.NURSE ---
1530 To MRI with monitor per bed.
[2024-09-04 20:44] LABS: HEP C RNA Viral Load Quant <1.18 NOT DETECTED Log IU/mL (NOT DETECTED); HEP C RNA Viral Load Quant <15 NOT DETECTED IU/mL (NOT DETECTED)
[2024-09-04] MEDS: pantoprazole 40 mg SDV IVP (23:00)
[2024-09-04] MEDS: acetaminophen 325 mg Tablet 650 MG PO (23:22)
[2024-09-05] VITALS (31 sets, daily range): BP systolic 102–135; BP diastolic 72–106; PULSE 83–135; RESP 15–37; TEMP 36.6–37.3; O2SAT 86–99
[2024-09-05 03:20] LABS: Basophils # 0.1 10^3/uL (0.0-0.1); Basophils % 0.7 %; Eosinophils # 0.1 10^3/uL (0.0-0.8); Eosinophils % 1.3 %; Hematocrit 26.7 % (36-47); Lymphocytes # 2.3 10^3/uL (0.8-4.8); Lymphocytes % 33.5 %; Mean Corpuscular HGB Conc 31.1 g/dL (30-55); Mean Corpuscular Hemoglobin 30.5 pg (27-33); Mean Corpuscular Volume 98.2 fl (85-98); Mean Platelet Volume 9.5 fL (7.4-10.4); Monocytes # 0.9 10^3/uL (0.2-0.9); Monocytes % 13.5 %; Neutrophils # 3.37 10^3/uL (1.8-7.7); Neutrophils % 50.3 %; Nucleated Red Blood Cells % 0 %; Platelet Count 545 10^3/cmm (157-399); Red Blood Count 2.72 10^6/uL (3.85-5.65); Red Cell Distribution Width 19.9 % (12.1-15.1); White Blood Count 6.72 10^3/uL (3.29-11.43)
[2024-09-05 03:48] LABS: Alanine Aminotransferase < 5 U/L (0-33); Albumin Level 2.3 g/dL (3.5-5.2); Alkaline Phosphatase 107 U/L (35-105); Anion Gap 13.8 (5-19); Aspartate Amino Transferase 17 U/L (0-32); Blood Urea Nitrogen 5 mg/dL (6-20); Calcium 7.2 mg/dL (8.5-10.5); Carbon Dioxide 17 mmol/L (22-29); Chloride 110 mmol/L (98-107); Creatinine Clr Calc Pharmacy 175.1567; Globulin 4.4 g/dL (1.3-4.6); Glomerular Filtration Rate 173.4 mL/min (90-130); Glucose 90 mg/dL (65-115); Osmolality Calculated 281 mOsm/kg (285-295); Potassium 3.8 mmol/L (3.5-5.1); Sodium 137 mmol/L (136-145); Total Bilirubin 0.5 mg/dL (0.15-1.2); Total Protein 6.7 g/dL (6.6-8.7)
[2024-09-05 03:52] LABS: Magnesium 1.5 mg/dL (1.7-2.3)
[2024-09-05] MEDS: vancomycin 1,000 MG in sodium chloride 0.9% 250 ML 250 MG IV ×2 (05:06→12:20)
[2024-09-05] MEDS: cefTRIAXone 2,000 mg SDV 2000 MG IVP ×2 (05:06→17:07)
[2024-09-05] MEDS: nicotine 21 mg Patch 1 PATCH TRANSDERMA (08:10)
[2024-09-05] MEDS: folic acid 1 mg Tablet PO ×2 (08:10→17:08)
[2024-09-05] MEDS: metoprolol tartrate 25 mg Tablet PO ×2 (08:10→19:56)
--- NOTE | 2024-09-05 09:30 | USCV_ITS ---
Radha Shabazz Age: 43 Gender: F : 1980 Exam Date: 09/05/2024 01:08 Ordering Phys: Adolph Marquez MD Technologist: NAHOMY [place] [facility] [place]: BLE edema, shock. BP: 118 / 77 HR: 110 Rhythm: Atrial fibrillation Technical Quality: Adequate MEASUREMENTS (Male / Female) Normal Values 2D ECHO LV Diastolic Diameter PLAX 4.2 cm 4.2 - 5.9 / 3.9 - 5.3 cm IVS Diastolic Thickness 1.3 cm 0.6 - 1.0 / 0.6 - 0.9 cm IVS Systolic Thickness 1.7 cm LVPW Diastolic Thickness 1.6 cm 0.6 - 1.0 / 0.6 - 0.9 cm LVPW Systolic Thickness 1.6 cm LVOT Diameter 1.8 cm LV Ejection Fraction 2D Teich 66.0 % LV Ejection Fraction MOD 4C 52.1 % LV Ejection Fraction MOD 2C 47.0 % LV Ejection Fraction 2C AL 46.5 % LA Diameter 3.4 cm Aorta at Sinotubular Diameter 2.8 cm IVC Diameter 2.1 cm M-MODE LA Ao Ratio MM 1.4 AV Cusp Separation MM 1.9 cm DOPPLER AV Peak Velocity 108.0 cm/s LVOT Peak Velocity 104.0 cm/s AV Area Cont Eq vti 2.1 cm squared AV Area Cont Eq pk 2.4 cm squared MV Peak Velocity 180.0 cm/s MV Area PHT 8.5 cm squared Mitral E to A Ratio 0.0 TR Peak Velocity 218.0 cm/s TR Peak Gradient 19.0 mmHg TV Peak E Velocity 67.0 cm/s Right Atrial Pressure 3.0 mmHg Pulmonary Artery Systolic Pressu 22.0 mmHg PV Peak Velocity 83.0 cm/s FINDINGS Left Ventricle Normal LV size and ejection fraction of 66%. No gross wall motion abnormalities.mild left ventricular hypertrophy. Grade I/IV diastolic dysfunction (abnormal relaxation filling pattern), normal to mildly elevated filling pressures. Right Ventricle The right ventricle is normal in size and function. Right Atrium The right atrium is normal in size. Left Atrium Mildly increased left atrial size. Mitral Valve Moderately severe mitral valve regurgitation. Aortic Valve No gross abnormalities noted Tricuspid Valve Trace to mild tricuspid valve regurgitation. Estimated pulmonary artery peak systolic pressure 29 mmHg Pulmonic Valve No gross abnormalities noted Pericardium Normal pericardium without effusion. Aorta Normal ascending aorta dimension. IVC Normal IVC dimension with <50% respiratory change of the inferior vena cava. CONCLUSIONS Normal LV size and ejection fraction of 66%. No gross wall motion abnormalities.mild left ventricular hypertrophy. Grade I/IV diastolic dysfunction (abnormal relaxation filling pattern), normal to mildly elevated filling pressures. Moderately severe mitral valve regurgitation. Trace to mild tricuspid valve regurgitation. Estimated pulmonary artery peak systolic pressure 29 mmHg Mildly increased left atrial size. There is no pericardial effusion. There are no intracardiac masses. No similar previous studies are available for comparison Dr Bianca Shaver MD FAC (Electronically Signed) Final Date: 10 September 2024 08:28 S
--- NOTE | 2024-09-05 10:12 | PM.ACPR ---
Documented by User: Ana Estrada 09/05/24 10:18 Procedure/Consent Procedure Narrative: Acute inflammatory demyelinating polyneuropathy (AIDP), clinically. Note: Patient reports improvement in her weakness since starting IVIG. Nerve conduction study, bilateral upper extremities Nerve Conduction Study Time Out Is a Time Out required?: No Documented by User: Jadiel Persaud MD 09/05/24 13:56 Nerve Conduction Study Nerve Conduction Study Details: Nerve conduction velocity study: 09/05/2024 performed at the patient's bedside ICU bed #3 Motor nerve conduction studies: Motor nerve conduction study of the bilateral median and ulnar nerves including F-wave latencies were performed. This study was essentially. Note: Elbow stimulation on the left median nerve could not be performed secondary to edema and IV placed in the antecubital fossa in the left upper extremity. Also the below elbow stimulation could not be obtained on the left ulnar nerve secondary to edema. Sensory nerve conduction studies: Sensory nerve conduction studies of the bilateral median, ulnar and radial nerves were performed. This study was abnormal secondary to mild prolongation of the distal median wrist latencies bilaterally associated with low amplitudes and inability to obtain the left radial nerve response. Impression: Electrophysiologically this NCV study performed on the bilateral upper extremities reveals the followin. Bilateral carpal tunnel syndrome involving the median nerve components only, mild in degree 2. Inability to obtain the left radial sensory nerve responses of unclear significance and possibly related to left upper extremity edema. Therefore further clinical correlation is required. Note: Although the patient's weakness resides in the lower extremities, lower extremity NCV study could not be performed secondary to lower extremity edema. The testing of the upper extremities did not reveal any obvious findings to suggest a demyelinating or axonal polyneuropathy. But, the patient's symptoms in the upper extremities are mild. Therefore an unremarkable study cannot rule out acute inflammatory demyelinating polyneuropathy or acute inflammatory axonal polyneuropathy. Therefore, further clinical correlation is required. Note: In view of the fact that the patient's history and clinical symptoms and findings are consistent with acute inflammatory demyelinating polyneuropathy and the patient's clinical condition is improving on IVIG. Recommend continuing current treatment plan. Signed: Jadiel Persaud MD Technologist: Ana Bright
--- NOTE | 2024-09-05 10:45 | P.PN_ITS ---
Subjective 2 Subjective: Radha Shabazz is a 43 year old female who reports experiencing gallbladder issues in February 2024. According to the patient's the patient experienced septic shock. The stated the patient was in the intensive care unit for several days. The patient underwent cholecystectomy. Following the cholecystectomy the patient was reported to feel better but presented to the [facility] emergency room on 09/01/2024 complaining of inability to move her legs. The patient stated that she began experiencing numbness and tingling in her toes which continued to spread up her legs to involve her hands and shoulders. The patient was admitted to the intensive care unit on 11/03/2024 and started on IVIG for clinical symptoms suggestive of acute inflammatory demyelinating polyneuropathy. Head CT scan 09/01/2024 was reported to be unrevealing. Cervical CT scan revealed left C5-C6 central disc protrusion with severe left foraminal stenosis at C5-C6. Cervical MRI revealed similar findings. Head MRI 09/03/[address]acic CT 09/01/2024 was reported to be negative. Lumbar CT reported to be negative. Metabolic lab for CBC, comprehensive metabolic panel, magnesium, and iron revealed anemia, slightly decreased magnesium of 1.5. The patient has been scheduled for lumbar puncture 09/04/2024 by radiology under fluoroscopy. According to the patient, since starting IVIG she has been able to lift her legs against gravity and arms against gravity. Patient still complains of weakness generalized. The patient reports feeling stronger this morning. The patient received her fifth day of IVIG. I spoke with the attending physician and recommended giving the patient an an additional 2 days of IVIG 400 mg/kg/day. The patient agreed with this plan. 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 Will plan to obtain NCV study today to assess for demyelinating and or axonal findings. Drug allergies: Penicillin which resulted in a rash Current medications: IVIG infusion Flexeril 5 mg p.o. 3 times daily Diclofenac 50 mg p.o. 3 times daily Hydrochlorothiazide Hydroxyzine Past medical history: Cholecystectomy Colitis Septic shock Hyponatremia Hypophosphatemia Anemia Chronic pelvic pain Cervical disks protrusion centrally C5-C6 with severe left foraminal stenosis Habits: The patient smokes 1/2 pack/day. The patient denied other drug use. The patient was educated on potential health risk associated with smoking. Family history: Negative for [place] Mcnair? Review of systems: The patient reports lower extremity weakness but improving. Patient reported upper extremity weakness but improving. Patient reported lower extremity pain. Patient also reported lower extremity swelling. Patient denied headaches, visual difficulty, swallowing difficulty, chest pain, shortness of breath, abdominal pain Vitals/I&O/Wt Last Vital Signs Temp 99.2 F 09/05/24 10:00 Pulse 117 H 09/05/24 10:00 Resp 21 H 09/05/24 10:00 BP 126/92 09/05/24 10:00 Pulse Ox 86 L 09/05/24 00:00 O2 Del Method Room Air 09/03/24 15:13 09/04/24 09/05/24 09/05/24 22:59 06:59 14:59 Intake Total 1540 / 1970 730 / 2700 Output Total 400 / 400 300 / 700 Balance 1140 / 1570 430 / 2000 Weight last 48 hrs Weight 159 lb Weight 159 lb 13.362 oz Physical Exam 2 Narrative: Blood pressure 126/90 heart rate 117 respiration 21 temperature 99.2 ?F O2 saturation 86% on room air The patient is alert she is oriented to person place and situation. Head atraumatic. Neck supple. Cranial nerves II through XII intact. Pupils 3 mm round reactive to light and accommodation. Extraocular movements intact. Motor testing: Upper extremities 5/5 in the right upper extremity and 5/5 in the left upper extremity except for 4/5 strength in the left hand. Lower extremities: 3+/5 in the right lower extremity and 3/5 in the left lower extremity. Deep tendon reflex revealed areflexia. Plantar responses flexor bilaterally. There was no clonus. Sensory examination revealed increased sensitivity to touch in the lower extremities and feet. There was swelling in the lower extremities and feet bilaterally, worse on the left. Throat clear. Lungs clear. Heart regular rhythm with increased rate. Extremities were negative for cyanosis. Data 09/05/24 02:47 09/05/24 02:47 Micro: Microbiology 09/04/24 09:25 Gram Stain - Final Cerebrospinal Fluid A&P Assessment and plan (1) AIDP (acute inflammatory demyelinating polyneuropathy): Impression: 1. Acute inflammatory demyelinating polyneuropathy (AIDP), clinically. Note: The patient's clinical symptoms improving since starting IVIG 2. Central to left paracentral left C5-C6 disc protrusion causing mild thecal sac compression and severe left neural foraminal stenosis. Plan: 1. Recommend giving patient an additional 2 days of IVIG 400 mg/kg/day for total of 7 days 2. Continue Forced vital capacities twice a day and contact attending physician if forced vital capacity less than 2 L 3. Follow-up pending CSF studies. Lumbar puncture performed on 09/04/2024 under fluoroscopy by radiology 4. Recommend occupational therapy, and physical therapy and speech therapy 5. Fall precautions 6. Vital signs and neurochecks per ICU protocol 7. Plan to obtain NCV study on the upper extremities and possibly lower extremities to assess for demyelinating and or axonal polyneuropathy in order to evaluate for acute inflammatory demyelinating polyneuropathy 8. Will consider plasma exchange if needed Attestations 2 Medical Necessity Statement*: The patient was evaluated by neurology for acute inflammatory demyelinating polyneuropathy Coding Level of Care Code 35898 Diagnoses AIDP (acute inflammatory demyelinating polyneuropathy) G61.0
[2024-09-05] MEDS: magnesium sulfate premix 2 GM/50 ML PIGGYBACK IV (12:19)
[2024-09-05] MEDS: HYDROcodone-acetaminophen 5-325 mg Tablet 1 TAB PO ×2 (12:20→19:57)
[2024-09-05] MEDS: gabapentin 100 mg Capsule 200 MG PO ×3 (13:58→19:57)
[2024-09-05 14:39] LABS: THYROID PEROXIDASE ANTIBODIES <1 IU/mL (<9)
[2024-09-05 15:06] LABS: Vancomycin Trough 42.5 ug/mL (10-15)
--- NOTE | 2024-09-05 15:16 | PM.PN ---
Subjective Subjective: No acute events overnight. Patient seen sitting up in bed today. States she is feeling stronger today. Has remained hemodynamic stable and afebrile. Denies any nausea, vomiting, headache. Working with physical therapy. Vitals/I&O/Wt Last Vital Signs Temp 99.2 F 09/05/24 10:00 Pulse 111 H 09/05/24 14:13 Resp 22 H 09/05/24 14:13 BP 123/88 09/05/24 13:00 Pulse Ox 96 09/05/24 14:13 O2 Del Method Room Air 09/05/24 14:13 09/05/24 09/05/24 09/05/24 06:59 14:59 22:59 Intake Total 730 / 2700 240 / 240 2640 / 2880 Output Total 300 / 700 Balance 430 / 2000 240 / 240 2640 / 2880 Weight last 48 hrs Weight 72.121 kg Weight 72.5 kg Physical Exam Const: COMMON NORMALS: no acute distress, patient oriented x3 and alert ORIENTATION/CONSCIOUSNESS: Yes oriented to person and Yes oriented to place HENMT: COMMON NORMALS: normocephalic HEAD & SCALP: normocephalic Neck/C-Spine: COMMON NORMALS: no meningeal signs and no JVD Resp: COMMON NORMALS: normal respiratory effort, No retractions, No use of accessory muscles and clear to auscultation bilaterally AUSCULTATION: clear to auscultation bilaterally Cardio: COMMON NORMALS: no JVD, regular rate, regular rhythm, S1 normal heart sound present and S2 normal heart sound present RATE: regular rate RHYTHM: regular rhythm HEART SOUNDS: S1 normal heart sound present and S2 normal heart sound present GI: COMMON NORMALS: Normal to inspection, nondistended, normoactive bowel sounds present, Soft to palpation and non-tender PALPATION: Yes Soft to palpation Extremity: COMMON NORMALS: no calf tenderness and no pedal edema NARRATIVE EXTREMITY EXAM: Strength in upper limb bilaterally improving. Left knee/5, right 4/5. Elbow jerks reflex improving Neuro: LUCHO COMA SCALE: document GCS findings [place] coma scale eye opening: Spontaneous [place] coma scale verbal response: Orientated [place] coma scale motor response: Obey commands [place] coma scale total score: 15 COMMON NORMALS: patient oriented x3, CN's II-XII intact bilaterally and moves all extremities SENSORIUM/ORIENTATION: Yes alert, Yes oriented to person and Yes oriented to place MENINGEAL SIGNS: Yes no meningeal signs MOTOR EXAM: no tremor noted, no asterixis, No Motor fasciculations not present and Abnormal muscle tone present OTHER: Pupils bilaterally equal and reactive, Motor testing: Upper limb as above. 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 Cannot rule out though unlikely transverse mellitus given patient's symptoms and bilateral upper limb trances of transverse mellitus would be at a higher level. Appreciate MRI and neck without any concerns for transverse mellitus. Will check MRI with and without contrast of thoracic spine. 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 in setting of recent setting of sepsis. Did have concerns for altered mental status with hallucinations overnight. Seems to have resolved for now. Appreciate neurology recommendations. Continue with IVIG 400 mg/kg body weight for overall 5-day course. Depending on the clinical improvement will plan for further 5 days versus possible plasmapheresis. Monitor respiratory status. Monitor with daily NIF and FVC. Incentive spirometry and flutter valve. Physical therapy evaluation. Appreciate vitamin B12, folate, VDRL. HIV negative. Appreciate LALY panel for low complement levels. Thyroid peroxidase antibody pending. Urine toxicology negative EBV, CMV, HSV studies consistent with past infection. RPR reactive. Treponema confirmatory test sent out Appreciate MRI brain results. Lumbar puncture appreciated for bland CSF. Follow-up other CSF studies. Will follow-up CSF cultures for overall 48 hours. If remain negative we will plan to discontinue IV antibiotics. Bacterial antigen negative. MRSA swab pending. Respiratory viral panel negative. For now continue with IV ceftriaxone and vancomycin as per meningitis dosage. Stop acyclovir. Tachycardia: Sinus. Check EKG. Patient denies any pain, has remained afebrile. Does complain of mild anxiety to patient is on Xanax 1 mg 3 times daily as needed. Hydroxyzine at as needed dose. Start on [place] 5 mg every 6 hours as needed, Dilaudid to be changed to 0.5 every 8 as needed. Metoprolol 25 mg twice daily. Echocardiogram. Physical therapy evaluation. Out of bed to chair. Nicotine patch. Regular diet Full code Hold off on Lovenox for DVT prophylaxis given need for lumbar puncture. Will restart Lovenox after lung function. Protonix for PUD prophylaxis Plan for the day: Patient continues to improve with improved strength and bilateral upper limbs, improving lower limb but slowly. Continue PT/OT. Discussed in detail with neurology. Plan to continue IVIG for at least 2 more days. Done with 5 days of. Continue with metoprolol. Appreciate CSF results. Follow-up cultures. If cultures remain negative for 48 hours we will plan to discontinue IV antibiotics. Check Streptococcus group a culture Continue with current pain medication and anxiety medication. Add gabapentin 200 mg 3 times daily, Requip 0.25 mg bedtime. Vancomycin to be dosed as per trough levels. Transfer out of ICU to [facility]. Attestations Medical Necessity Statement*: Requires further hospitalization for management of ADIP with high concerns of Guillain-Mcnair? 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
[2024-09-05 15:37] LABS: Rapid Strep A Test Negative (Negative)
[2024-09-05 16:45] LABS: MRSA PCR OZH (swab) NOT DETECTED (Not Detecte)
[2024-09-05] MEDS: IMMUNE GLOBULIN IV (17:44)
--- NOTE | 2024-09-05 19:41 | PC.NURSE ---
Even with 2 nurses assisting, patient was very difficult to transfer to and from bedside commode. To prevent injury to patient and staff, bedpan will be used next time.
[2024-09-05] MEDS: ropinirole 0.25 mg Tablet PO (19:56)
[2024-09-05] MEDS: ALPRAZolam 0.5 mg Tablet 1 MG PO (19:56)
[2024-09-05] MEDS: pantoprazole 40 mg SDV IVP (19:57)
--- NOTE | 2024-09-05 23:38 | PC.NURSE ---
Patient states can I have the rest of my nighttime meds? This nurse discussed with patient that she had already received all of her nighttime meds. Patient states they usually give me the Dilaudid with my nighttime meds. Patient educated that the PRN IV Dilaudid is for pain not controlled by oral pain medication and is not something that can be given scheduled at nighttime.
[2024-09-06] VITALS (12 sets, daily range): BP systolic 112–132; BP diastolic 80–91; PULSE 91–127; RESP 15–24; TEMP 36.3–37.2; O2SAT 90–95
[2024-09-06] MEDS: HYDROmorphone 1 mg/mL INJ 1 mL 0.5 MG IVP ×2 (00:22→22:28)
[2024-09-06] MEDS: cefTRIAXone 2,000 mg SDV 2000 MG IVP ×2 (05:45→17:05)
[2024-09-06] MEDS: HYDROcodone-acetaminophen 5-325 mg Tablet 1 TAB PO ×4 (05:53→21:10)
[2024-09-06 06:17] LABS: Basophils % 0.5 %; Eosinophils # 0.1 10^3/uL (0.0-0.8); Eosinophils % 2.1 %; Hematocrit 25.9 % (36-47); Lymphocytes % 32.2 %; Mean Corpuscular HGB Conc 32.4 g/dL (30-55); Mean Corpuscular Hemoglobin 31.6 pg (27-33); Mean Corpuscular Volume 97.4 fl (85-98); Mean Platelet Volume 9.7 fL (7.4-10.4); Monocytes # 0.8 10^3/uL (0.2-0.9); Monocytes % 13.1 %; Neutrophils # 3.16 10^3/uL (1.8-7.7); Neutrophils % 51.6 %; Nucleated Red Blood Cells % 0 %; Platelet Count 507 10^3/cmm (157-399); Red Blood Count 2.66 10^6/uL (3.85-5.65); Red Cell Distribution Width 19.2 % (12.1-15.1); White Blood Count 6.12 10^3/uL (3.29-11.43)
[2024-09-06 06:36] LABS: Vancomycin Random 19.7 ug/mL (20.0-40.0)
[2024-09-06 06:43] LABS: Alanine Aminotransferase < 5 U/L (0-33); Albumin Level 2.1 g/dL (3.5-5.2); Alkaline Phosphatase 102 U/L (35-105); Anion Gap 11.8 (5-19); Aspartate Amino Transferase 14 U/L (0-32); Blood Urea Nitrogen 4 mg/dL (6-20); Carbon Dioxide 19 mmol/L (22-29); Chloride 108 mmol/L (98-107); Creatinine Clr Calc Pharmacy 166.5025; Globulin 4.7 g/dL (1.3-4.6); Glomerular Filtration Rate 173.4 mL/min (90-130); Glucose 87 mg/dL (65-115); Osmolality Calculated 278 mOsm/kg (285-295); Sodium 136 mmol/L (136-145); Total Bilirubin 0.4 mg/dL (0.15-1.2); Total Protein 6.8 g/dL (6.6-8.7)
[2024-09-06 06:44] LABS: Magnesium 1.6 mg/dL (1.7-2.3)
[2024-09-06 06:45] LABS: Potassium 2.8 mmol/L (3.5-5.1)
[2024-09-06] MEDS: potassium chloride ER 20 mEq Tablet 40 MEQ PO ×2 (06:53→09:47)
--- NOTE | 2024-09-06 08:19 | P.PN_ITS ---
Subjective 2 Subjective: Reason for Hospital follow-up: Acute inflammatory demyelinating polyneuropathy History of present illness: Radha Shabazz is a 43 year old female who reports experiencing gallbladder issues in February 2024. According to the patient's the patient experienced septic shock. The stated the patient was in the intensive care unit for several days. The patient underwent cholecystectomy. Following the cholecystectomy the patient was reported to feel better but presented to the [facility] emergency room on 09/01/2024 complaining of inability to move her legs. The patient stated that she began experiencing numbness and tingling in her toes which continued to spread up her legs to involve her hands and shoulders. The patient was admitted to the intensive care unit on 11/03/2024 and started on IVIG for clinical symptoms suggestive of acute inflammatory demyelinating polyneuropathy. Head CT scan 09/01/2024 was reported to be unrevealing. Cervical CT scan revealed left C5-C6 central disc protrusion with severe left foraminal stenosis at C5-C6. Cervical MRI revealed similar findings. Head MRI 09/03/[address]acic CT 09/01/2024 was reported to be negative. Lumbar CT reported to be negative. Metabolic lab for CBC, comprehensive metabolic panel, magnesium, and iron revealed anemia, slightly decreased magnesium of 1.5. The patient has been scheduled for lumbar puncture 09/04/2024 by radiology under fluoroscopy. According to the patient, since starting IVIG she has been able to lift her legs against gravity and arms against gravity. Patient still complains of weakness generalized. The patient reports feeling stronger this morning. The patient received her fifth day of IVIG. I spoke with the attending physician and recommended giving the patient an an additional 2 days of IVIG 400 mg/kg/day. The patient agreed with this plan. 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 NCV study performed on the upper extremities on 09/06/2024 revealed only minimal findings suggestive of possible bilateral carpal tunnel syndrome involving the sensory nerve components only, mild in degree. The lower extremities were not performed secondary to lower extremity edema. Drug allergies: Penicillin which resulted in a rash Current medications: IVIG infusion 400 mg/kg/day for a total of 7 days Flexeril 5 mg p.o. 3 times daily Diclofenac 50 mg p.o. 3 times daily Hydrochlorothiazide Hydroxyzine Past medical history: Cholecystectomy Colitis Septic shock Hyponatremia Hypophosphatemia Anemia Chronic pelvic pain Cervical disks protrusion centrally C5-C6 with severe left foraminal stenosis Habits: The patient smokes 1/2 pack/day. The patient denied other drug use. The patient was educated on potential health risk associated with smoking. Family history: Negative for Gullain Mcnair? syndrome Review of systems: The patient reports lower extremity weakness but improving. Patient reported upper extremity weakness but improving. Patient reported lower extremity pain. Patient also reported lower extremity swelling and some upper extremity swelling in the left arm there was no cyanosis.. Patient denied headaches, visual difficulty, swallowing difficulty, chest pain, shortness of breath, abdominal pain. Vitals/I&O/Wt Last Vital Signs Temp 98.3 F 09/06/24 04:00 Pulse 113 H 09/06/24 06:00 Resp 17 09/06/24 04:00 BP 132/88 09/06/24 04:00 Pulse Ox 92 09/06/24 04:00 O2 Del Method Room Air 09/06/24 04:00 09/05/24 09/06/24 09/06/24 22:59 06:59 14:59 Intake Total 2640 / 2880 Output Total 100 / 100 Balance 2640 / 2880 -100 / 2780 Weight last 48 hrs Weight 143 lb Weight 159 lb Physical Exam 2 Narrative: The patient is alert she is oriented to person place and situation. Head atraumatic. Neck supple. Cranial nerves II through XII intact. Pupils 3 mm round reactive to light and accommodation. Extraocular movements intact. Motor testing: Upper extremities 5/5 in the right upper extremity and 5/5 in the left upper extremity except for 4/5 strength in the left hand. Lower extremities: 3+/5 in the right lower extremity and 3/5 in the left lower extremity. Deep tendon reflex revealed the trace reflexes in the right patella and 1+ reflexes in the upper extremities bilateral and areflexia in the left lower extremity. Plantar responses flexor bilaterally. There was no clonus. Sensory examination revealed increased sensitivity to touch in the lower extremities and feet. There was swelling in the lower extremities and feet bilaterally, worse on the left and swelling in the left upper extremity but no obvious sign of infection. Throat clear. Lungs clear. Heart regular rhythm with increased rate. Extremities were negative for cyanosis. Data 09/06/24 04:20 09/06/24 04:20 Micro: Microbiology 09/04/24 09:25 Gram Stain - Final Cerebrospinal Fluid CSF Culture - Preliminary A&P Assessment and plan (1) AIDP (acute inflammatory demyelinating polyneuropathy): Impression: 1. Acute inflammatory demyelinating polyneuropathy (AIDP), clinically. Note: The patient's clinical symptoms improving since starting IVIG 2. Central to left paracentral left C5-C6 disc protrusion causing mild thecal sac compression and severe left neural foraminal stenosis. Plan: 1. Recommend continuing IVIG 400 mg/kg/day for total of 7 days 2. Continue Forced vital capacities twice a day and contact attending physician if forced vital capacity less than 2 L 3. Follow-up pending CSF studies. Lumbar puncture performed on 09/04/2024 under fluoroscopy by radiology 4. Recommend occupational therapy, and physical therapy and speech therapy 5. Fall precautions 6. [facility] signs [facility]checks [facility] 7. Recommend transfer to inpatient rehab once IVIG has been completed and patient stable from other medical issues Attestations 2 Medical Necessity Statement*: The patient was evaluated by neurology for acute inflammatory demyelinating polyneuropathy Coding Level of Care Code 70201 Diagnoses AIDP (acute inflammatory demyelinating polyneuropathy) G61.0
[2024-09-06] MEDS: folic acid 1 mg Tablet PO ×2 (08:57→17:08)
[2024-09-06] MEDS: metoprolol tartrate 25 mg Tablet PO ×2 (08:57→21:10)
[2024-09-06] MEDS: gabapentin 100 mg Capsule 200 MG PO ×3 (08:58→21:10)
[2024-09-06] MEDS: nicotine 21 mg Patch 1 PATCH TRANSDERMA (08:59)
[2024-09-06 09:17] LABS: Vitamin B1(Thiamin) Plas/Ser <6 nmol/L (8-30)
--- NOTE | 2024-09-06 09:38 | XR_ITS ---
WS: [id number] Left foot, 2 views, 09/06/2024 Clinical Data: Toe pain Comparison: None. Findings: No fractures or dislocations are seen. No bone destruction or erosion is noted. The joint spaces and soft tissues are normal. XR/XR foot LT 2V [id number] Impression: Negative left foot.
[2024-09-06] MEDS: magnesium sulfate premix 2 GM/50 ML PIGGYBACK IV (09:45)
[2024-09-06] MEDS: vancomycin 1,000 MG in sodium chloride 0.9% 250 ML 250 MG IV ×2 (11:35→22:28)
--- NOTE | 2024-09-06 12:12 | P.PN_ITS ---
Subjective 2 Subjective: No acute events overnight. Patient seen sitting up in bed today. States she is feeling stronger today. Has remained hemodynamic stable and afebrile. Denies any nausea, vomiting, headache. Working with physical therapy. Vitals/I&O/Wt Last Vital Signs Temp 97.4 F L 09/06/24 11:17 Pulse 110 H 09/06/24 11:17 Resp 16 09/06/24 11:17 BP 116/85 09/06/24 11:17 Pulse Ox 95 09/06/24 11:17 O2 Del Method Room Air 09/06/24 11:17 09/05/24 09/06/24 09/06/24 22:59 06:59 14:59 Intake Total 2640 / 2880 250 / 250 Output Total 100 / 100 Balance 2640 / 2880 -100 / 2780 250 / 250 Weight last 48 hrs Weight 64.864 kg Weight 72.121 kg Physical Exam 2 Const: COMMON NORMALS: no acute distress, patient oriented x3 and alert O RIENTATION/CONSCIOUSNESS: Yes oriented to person and Yes oriented to place HENMT: COMMON NORMALS: normocephalic HEAD & SCALP: normocephalic Neck/C-Spine: COMMON NORMALS: no meningeal signs and no JVD Resp: COMMON NORMALS: normal respiratory effort, No retractions, No use of accessory muscles and clear to auscultation bilaterally AUSCULTATION: clear to auscultation bilaterally Cardio: COMMON NORMALS: no JVD, regular rate, regular rhythm, S1 normal heart sound present and S2 normal heart sound present RATE: regular rate RHYTHM: regular rhythm HEART SOUNDS: S1 normal heart sound present and S2 normal heart sound present GI: COMMON NORMALS: Normal to inspection, nondistended, normoactive bowel sounds present, Soft to palpation and non-tender PALPATION: Yes Soft to palpation Extremity: COMMON NORMALS: no calf tenderness and no pedal edema NARRATIVE EXTREMITY EXAM: Strength in upper limb bilaterally improving. Left knee/5, right 4/5. Elbow jerks reflex improving Neuro: LUCHO COMA SCALE: document GCS findings [place] coma scale eye opening: Spontaneous [place] coma scale verbal response: Orientated [place] coma scale motor response: Obey commands [place] coma scale total score: 15 COMMON NORMALS: patient oriented x3, CN's II-XII intact bilaterally and moves all extremities SENSORIUM/ORIENTATION: Yes alert, Yes oriented to person and Yes oriented to place MENINGEAL SIGNS: Yes no meningeal signs MOTOR EXAM: no tremor noted, no asterixis, No Motor fasciculations not present and Abnormal muscle tone present OTHER: Pupils bilaterally equal and reactive, Motor testing: Upper limb as above. 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 Cannot rule out though unlikely transverse mellitus given patient's symptoms and bilateral upper limb trances of transverse mellitus would be at a higher level. Appreciate MRI and neck without any concerns for transverse mellitus. Will check MRI with and without contrast of thoracic spine. 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 in setting of recent setting of sepsis. Did have concerns for altered mental status with hallucinations overnight. Seems to have resolved for now. Appreciate neurology recommendations. Continue with IVIG 400 mg/kg body weight for overall 5-day course. Depending on the clinical improvement will plan for further 5 days versus possible plasmapheresis. Monitor respiratory status. Monitor with daily NIF and FVC. Incentive spirometry and flutter valve. Physical therapy evaluation. Appreciate vitamin B12, folate, VDRL. HIV negative. Appreciate LALY panel for low complement levels. Thyroid peroxidase antibody pending. Urine toxicology negative EBV, CMV, HSV studies consistent with past infection. RPR reactive. Treponema confirmatory test sent out Appreciate MRI brain results. Lumbar puncture appreciated for bland CSF. Follow-up other CSF studies. Will follow-up CSF cultures for overall 48 hours. If remain negative we will plan to discontinue IV antibiotics. Bacterial antigen negative. MRSA swab pending. Respiratory viral panel negative. For now continue with IV ceftriaxone and vancomycin as per meningitis dosage. Stop acyclovir. Tachycardia: Sinus. Check EKG. Patient denies any pain, has remained afebrile. Does complain of mild anxiety to patient is on Xanax 1 mg 3 times daily as needed. Hydroxyzine at as needed dose. Start on [place] 5 mg every 6 hours as needed, Dilaudid to be changed to 0.5 every 8 as needed. Metoprolol 25 mg twice daily. Echocardiogram. Physical therapy evaluation. Out of bed to chair. Nicotine patch. Regular diet Full code Hold off on Lovenox for DVT prophylaxis given need for lumbar puncture. Will restart Lovenox after lung function. Protonix for PUD prophylaxis Plan for the day: Continue IVIG for overall 7-day course. Appreciate neurology recommendations. Appreciate EMG. Continue gabapentin 20 mg 3 times a day along with Requip and current pain medication. Aggressive PT/OT. Out of bed to chair. Follow-up blood culture and CSF for 24 more hours. If remain negative will discontinue antibiotics. Discussed in detail with pharmacy about vancomycin trough levels and changing vancomycin dose accordingly. Follow-up other CSF studies. Appreciate magnesium and potassium levels. Repeat 2 g IV magnesium and 40 mg oral potassium. Repeat BMP in evening. Monitor magnesium level daily. Discharge planning: Given significant deconditioning, weakness in lower limbs which seems to be improving patient would need acute rehab after completion of IVIG course to get back to her baseline. Discussed in detail with the patient and case management. Plan to discharge to LTAC. Patient has been accepted. Authorization pending. Attestations 2 Medical Necessity Statement*: Requires further hospitalization for management of acute lower limb weakness in setting of AIDP with high concerns for Guillain-Mcnair? 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
[2024-09-06] MEDS: heparin 5,000 unit/mL INJ 1 mL 5000 UNIT SUBCUT ×2 (13:45→22:28)
[2024-09-06 16:13] LABS: Blood Urea Nitrogen 4 mg/dL (6-20); Calcium 6.9 mg/dL (8.5-10.5); Carbon Dioxide 18 mmol/L (22-29); Chloride 109 mmol/L (98-107); Creatinine Clr Calc Pharmacy 222.0034; Glomerular Filtration Rate 241.7 mL/min (90-130); Glucose 95 mg/dL (65-115); Osmolality Calculated 277 mOsm/kg (285-295); Sodium 135 mmol/L (136-145)
[2024-09-06] MEDS: IMMUNE GLOBULIN IV (17:06)
[2024-09-06] MEDS: ropinirole 0.25 mg Tablet PO (21:10)
[2024-09-06] MEDS: pantoprazole 40 mg SDV IVP (21:10)
[2024-09-07] VITALS (9 sets, daily range): BP systolic 114–147; BP diastolic 82–95; PULSE 103–127; RESP 14–20; TEMP 36.7–36.9; O2SAT 90–97
[2024-09-07] MEDS: HYDROcodone-acetaminophen 5-325 mg Tablet 1 TAB PO ×3 (03:42→20:40)
[2024-09-07 05:10] LABS: Basophils # 0.1 10^3/uL (0.0-0.1); Basophils % 0.9 %; Eosinophils # 0.1 10^3/uL (0.0-0.8); Hematocrit 27.3 % (36-47); Lymphocytes # 1.8 10^3/uL (0.8-4.8); Lymphocytes % 33.3 %; Mean Corpuscular HGB Conc 30.8 g/dL (30-55); Mean Corpuscular Hemoglobin 32.1 pg (27-33); Mean Corpuscular Volume 104.2 fl (85-98); Mean Platelet Volume 9.5 fL (7.4-10.4); Monocytes # 0.9 10^3/uL (0.2-0.9); Monocytes % 16.6 %; Neutrophils # 2.56 10^3/uL (1.8-7.7); Neutrophils % 46.7 %; Nucleated Red Blood Cells % 0 %; Platelet Count 435 10^3/cmm (157-399); Red Blood Count 2.62 10^6/uL (3.85-5.65); Red Cell Distribution Width 19.3 % (12.1-15.1); White Blood Count 5.49 10^3/uL (3.29-11.43)
[2024-09-07 05:31] LABS: Magnesium 1.6 mg/dL (1.7-2.3)
[2024-09-07 05:32] LABS: Alanine Aminotransferase < 5 U/L (0-33); Albumin Level 1.9 g/dL (3.5-5.2); Alkaline Phosphatase 99 U/L (35-105); Anion Gap 13.6 (5-19); Aspartate Amino Transferase 13 U/L (0-32); Blood Urea Nitrogen 4 mg/dL (6-20); Calcium 6.9 mg/dL (8.5-10.5); Carbon Dioxide 17 mmol/L (22-29); Chloride 108 mmol/L (98-107); Creatinine Clr Calc Pharmacy 166.5025; Globulin 5.2 g/dL (1.3-4.6); Glomerular Filtration Rate 173.4 mL/min (90-130); Glucose 86 mg/dL (65-115); Osmolality Calculated 276 mOsm/kg (285-295); Potassium 3.6 mmol/L (3.5-5.1); Sodium 135 mmol/L (136-145); Total Bilirubin 0.4 mg/dL (0.15-1.2); Total Protein 7.1 g/dL (6.6-8.7)
[2024-09-07] MEDS: cefTRIAXone 2,000 mg SDV 2000 MG IVP (05:56)
[2024-09-07] MEDS: folic acid 1 mg Tablet PO ×2 (09:51→17:20)
[2024-09-07] MEDS: gabapentin 100 mg Capsule 200 MG PO ×3 (09:52→20:21)
[2024-09-07] MEDS: vancomycin 1,000 MG in sodium chloride 0.9% 250 ML 250 MG IV (09:52)
[2024-09-07] MEDS: heparin 5,000 unit/mL INJ 1 mL 5000 UNIT SUBCUT ×2 (09:52→22:59)
[2024-09-07] MEDS: metoprolol tartrate 25 mg Tablet PO ×2 (09:52→20:21)
[2024-09-07] MEDS: nicotine 21 mg Patch 1 PATCH TRANSDERMA (09:52)
[2024-09-07] MEDS: magnesium sulfate premix 1 GM/100 ML PIGGYBACK IV (12:37)
--- NOTE | 2024-09-07 12:53 | P.PN_ITS ---
Subjective 2 Subjective: No acute events overnight. Patient continues to do better with physical therapy. Continues to complain of burning pain in her lower limbs more so in her calf muscle and bilateral toes. Denies any nausea, vomiting, headache. Has remained stable on room air. Heart rate improving. Vitals/I&O/Wt Last Vital Signs Temp 98.4 F 09/07/24 11:22 Pulse 103 H 09/07/24 11:22 Resp 15 09/07/24 11:22 BP 128/87 09/07/24 11:22 Pulse Ox 92 09/07/24 11:22 O2 Del Method Room Air 09/07/24 11:22 09/06/24 09/07/24 09/07/24 22:59 06:59 14:59 Intake Total 250 / 850 Balance 250 / 850 Weight last 48 hrs Weight 65 kg Weight 64.864 kg Physical Exam 2 Const: COMMON NORMALS: no acute distress, patient oriented x3 and alert O RIENTATION/CONSCIOUSNESS: Yes oriented to person and Yes oriented to place HENMT: COMMON NORMALS: normocephalic HEAD & SCALP: normocephalic Neck/C-Spine: COMMON NORMALS: no meningeal signs and no JVD Resp: COMMON NORMALS: normal respiratory effort, No retractions, No use of accessory muscles and clear to auscultation bilaterally AUSCULTATION: clear to auscultation bilaterally Cardio: COMMON NORMALS: no JVD, regular rate, regular rhythm, S1 normal heart sound present and S2 normal heart sound present RATE: regular rate RHYTHM: regular rhythm HEART SOUNDS: S1 normal heart sound present and S2 normal heart sound present GI: COMMON NORMALS: Normal to inspection, nondistended, normoactive bowel sounds present, Soft to palpation and non-tender PALPATION: Yes Soft to palpation Extremity: COMMON NORMALS: no calf tenderness and no pedal edema NARRATIVE EXTREMITY EXAM: Strength in upper limb bilaterally improving. Left knee/5, right 4/5. Elbow jerks reflex improving Neuro: LUCHO COMA SCALE: document GCS findings [place] coma scale eye opening: Spontaneous Lucho coma scale verbal response: Orientated [place] coma scale motor response: Obey commands [place] coma scale total score: 15 COMMON NORMALS: patient oriented x3, CN's II-XII intact bilaterally and moves all extremities SENSORIUM/ORIENTATION: Yes alert, Yes oriented to person and Yes oriented to place MENINGEAL SIGNS: Yes no meningeal signs MOTOR EXAM: no tremor noted, no asterixis, No Motor fasciculations not present and Abnormal muscle tone present OTHER: Pupils bilaterally equal and reactive, Motor testing: Upper limb as above. 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 Cannot rule out though unlikely transverse mellitus given patient's symptoms and bilateral upper limb trances of transverse mellitus would be at a higher level. Appreciate MRI and neck without any concerns for transverse mellitus. Will check MRI with and without contrast of thoracic spine. 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 in setting of recent setting of sepsis. Did have concerns for altered mental status with hallucinations overnight. Seems to have resolved for now. Appreciate neurology recommendations. Continue with IVIG 400 mg/kg body weight for overall 5-day course. Depending on the clinical improvement will plan for further 5 days versus possible plasmapheresis. Monitor respiratory status. Monitor with daily NIF and FVC. Incentive spirometry and flutter valve. Physical therapy evaluation. Appreciate vitamin B12, folate, VDRL. HIV negative. Appreciate LALY panel for low complement levels. Thyroid peroxidase antibody pending. Urine toxicology negative EBV, CMV, HSV studies consistent with past infection. RPR reactive. Treponema confirmatory test sent out Appreciate MRI brain results. Lumbar puncture appreciated for bland CSF. Follow-up other CSF studies. Will follow-up CSF cultures for overall 48 hours. If remain negative we will plan to discontinue IV antibiotics. Bacterial antigen negative. MRSA swab pending. Respiratory viral panel negative. For now continue with IV ceftriaxone and vancomycin as per meningitis dosage. Stop acyclovir. Tachycardia: Sinus. Check EKG. Patient denies any pain, has remained afebrile. Does complain of mild anxiety to patient is on Xanax 1 mg 3 times daily as needed. Hydroxyzine at as needed dose. Start on [place] 5 mg every 6 hours as needed, Dilaudid to be changed to 0.5 every 8 as needed. Metoprolol 25 mg twice daily. Echocardiogram. Physical therapy evaluation. Out of bed to chair. Nicotine patch. Regular diet Full code Hold off on Lovenox for DVT prophylaxis given need for lumbar puncture. Will restart Lovenox after lung function. Protonix for PUD prophylaxis Plan for the day: Continue IVIG for overall 7-day course. Appreciate neurology recommendations. Last day of IVIG today. Increase gabapentin to 300 mg 3 times a day. Continue with Requip. Continue with aggressive PT/OT. Out of bed to chair. Blood cultures and CSF cultures have remained negative. Will discontinue IV antibiotics. Continues to have hypomagnesemia. Replete 1 g IV magnesium start on oral magnesium 4 mg twice daily. Patient does have mild acidosis. Will continue to monitor. Encourage more oral intake. Discharge planning: Given significant deconditioning, weakness in lower limbs which seems to be improving patient would need acute rehab after completion of IVIG course to get back to her baseline. Discussed in detail with the patient and case management. Plan to discharge to LTAC. Patient has been accepted. 09/07: I am told that prior authorization has been declined. Have requested case management for possible transition to acute rehab. 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
[2024-09-07 13:30] LABS: DNA AB (DS) CRITHIDIA,IFA NEGATIVE (NEGATIVE)
[2024-09-07] MEDS: HYDROmorphone 1 mg/mL INJ 1 mL 0.5 MG IVP ×2 (15:22→22:59)
[2024-09-07] MEDS: magnesium oxide 400 mg tablet PO (17:20)
[2024-09-07] MEDS: IMMUNE GLOBULIN IV (17:20)
[2024-09-07 20:15] LABS: Lyme Disease AB (IGG),IBL NO BANDS DETECTED; Lyme Disease AB (IGM), IBL NO BANDS DETECTED
[2024-09-07] MEDS: pantoprazole 40 mg SDV IVP (20:21)
[2024-09-07] MEDS: ropinirole 0.25 mg Tablet PO (20:21)
[2024-09-07] MEDS: ALPRAZolam 0.5 mg Tablet 1 MG PO (20:40)
[2024-09-08] VITALS (8 sets, daily range): BP systolic 120–150; BP diastolic 79–104; PULSE 109–121; RESP 16–20; TEMP 36.6–37; O2SAT 90–94
[2024-09-08 00:55] LABS: VDRL on CSF NON-REACTIVE
[2024-09-08] MEDS: HYDROcodone-acetaminophen 5-325 mg Tablet 1 TAB PO ×3 (04:42→20:40)
[2024-09-08] MEDS: ALPRAZolam 0.5 mg Tablet 1 MG PO ×2 (04:42→20:41)
[2024-09-08 05:51] LABS: Basophils % 0.9 %; Eosinophils # 0.1 10^3/uL (0.0-0.8); Hematocrit 27.4 % (36-47); Lymphocytes % 42.8 %; Mean Corpuscular HGB Conc 31.4 g/dL (30-55); Mean Corpuscular Hemoglobin 31.2 pg (27-33); Mean Corpuscular Volume 99.3 fl (85-98); Mean Platelet Volume 10.3 fL (7.4-10.4); Monocytes # 0.8 10^3/uL (0.2-0.9); Monocytes % 17.1 %; Neutrophils # 1.68 10^3/uL (1.8-7.7); Neutrophils % 36.8 %; Nucleated Red Blood Cells % 0 %; Platelet Count 444 10^3/cmm (157-399); Red Blood Count 2.76 10^6/uL (3.85-5.65); Red Cell Distribution Width 19.1 % (12.1-15.1); White Blood Count 4.56 10^3/uL (3.29-11.43)
[2024-09-08 06:17] LABS: Alanine Aminotransferase < 5 U/L (0-33); Alkaline Phosphatase 100 U/L (35-105); Anion Gap 12.1 (5-19); Aspartate Amino Transferase 11 U/L (0-32); Blood Urea Nitrogen 4 mg/dL (6-20); Calcium 7.1 mg/dL (8.5-10.5); Carbon Dioxide 20 mmol/L (22-29); Chloride 105 mmol/L (98-107); Creatinine Clr Calc Pharmacy 237.6993; Globulin 5.4 g/dL (1.3-4.6); Glomerular Filtration Rate 241.7 mL/min (90-130); Glucose 81 mg/dL (65-115); Magnesium 1.5 mg/dL (1.7-2.3); Osmolality Calculated 274 mOsm/kg (285-295); Potassium 3.1 mmol/L (3.5-5.1); Sodium 134 mmol/L (136-145); Total Bilirubin 0.5 mg/dL (0.15-1.2); Total Protein 7.4 g/dL (6.6-8.7)
[2024-09-08] MEDS: nicotine 21 mg Patch 1 PATCH TRANSDERMA (10:19)
[2024-09-08] MEDS: heparin 5,000 unit/mL INJ 1 mL 5000 UNIT SUBCUT ×2 (10:19→22:52)
[2024-09-08] MEDS: metoprolol tartrate 25 mg Tablet PO ×2 (10:20→20:41)
[2024-09-08] MEDS: gabapentin 100 mg Capsule 200 MG PO (10:20)
[2024-09-08] MEDS: magnesium oxide 400 mg tablet PO ×2 (10:20→18:53)
[2024-09-08] MEDS: folic acid 1 mg Tablet PO ×2 (10:21→18:53)
[2024-09-08 12:59] LABS: Adenosine Deaminase CSF 0.3 U/L (<7.0)
--- NOTE | 2024-09-08 13:15 | PM.PN ---
Subjective Subjective: No acute events overnight. Patient denies any nausea, vomiting, headache. Continues to get stronger and working well with physical therapy. Asking to make sure that the pain medications continue to remain board as that helps her with physical therapy. Vitals/I&O/Wt Last Vital Signs Temp 98.4 F 09/08/24 11:38 Pulse 117 H 09/08/24 11:38 Resp 19 H 09/08/24 11:38 BP 150/104 09/08/24 11:38 Pulse Ox 94 09/08/24 11:38 O2 Del Method Room Air 09/08/24 08:00 09/07/24 09/08/24 09/08/24 22:59 06:59 14:59 Intake Total 480 / 930 240 / 1170 240 / 240 Balance 480 / 930 240 / 1170 240 / 240 Weight last 48 hrs Weight 75.251 kg Weight 65 kg Physical Exam Const: COMMON NORMALS: no acute distress, patient oriented x3 and alert ORIENTATION/CONSCIOUSNESS: Yes oriented to person and Yes oriented to place HENMT: COMMON NORMALS: normocephalic HEAD & SCALP: normocephalic Neck/C-Spine: COMMON NORMALS: no meningeal signs and no JVD Resp: COMMON NORMALS: normal respiratory effort, No retractions, No use of accessory muscles and clear to auscultation bilaterally AUSCULTATION: clear to auscultation bilaterally Cardio: COMMON NORMALS: no JVD, regular rate, regular rhythm, S1 normal heart sound present and S2 normal heart sound present RATE: regular rate RHYTHM: regular rhythm HEART SOUNDS: S1 normal heart sound present and S2 normal heart sound present GI: COMMON NORMALS: Normal to inspection, nondistended, normoactive bowel sounds present, Soft to palpation and non-tender PALPATION: Yes Soft to palpation Extremity: COMMON NORMALS: no calf tenderness and no pedal edema NARRATIVE EXTREMITY EXAM: Strength in upper limb bilaterally improving. Left arm 4/5, right 4/5. Elbow jerks reflex improving Neuro: LUCHO COMA SCALE: document GCS findings [place] coma scale eye opening: Spontaneous [place] coma scale verbal response: Orientated [place] coma scale motor response: Obey commands [place] coma scale total score: 15 COMMON NORMALS: patient oriented x3, CN's II-XII intact bilaterally and moves all extremities SENSORIUM/ORIENTATION: Yes alert, Yes oriented to person and Yes oriented to place MENINGEAL SIGNS: Yes no meningeal signs MOTOR EXAM: no tremor noted, no asterixis, No Motor fasciculations not present and Abnormal muscle tone present OTHER: Pupils bilaterally equal and reactive, Motor testing: Upper limb as above. Lower limb improving, right lower limb 3/5, left lower limb 3/5, Deep tendon reflexes?areflexia, no fasciculation no clonus Bilateral plantar flexor Continues to get stronger with daily improvement Psych: COMMON NORMALS: mental status grossly normal Data 09/08/24 04:20 09/08/24 04:20 Micro: Microbiology 09/03/24 04:52 Blood Culture - Final Blood NO GROWTH AFTER 5 DAYS 09/02/24 19:10 Blood Culture - Final Blood NO GROWTH AFTER 5 DAYS 09/01/24 18:23 Blood Culture - Final Blood Staphylococcus hominis 09/05/24 13:55 Group A Streptococcus Rapid Screen - Final Throat 09/04/24 09:25 Gram Stain - Final Cerebrospinal Fluid CSF Culture - Final A&P Assessment and plan (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 Cannot rule out though unlikely transverse mellitus given patient's symptoms and bilateral upper limb trances of transverse mellitus would be at a higher level. Appreciate MRI and neck without any concerns for transverse mellitus. Will check MRI with and without contrast of thoracic spine. 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 in setting of recent setting of sepsis. Did have concerns for altered mental status with hallucinations overnight. Seems to have resolved for now. Appreciate neurology recommendations. Continue with IVIG 400 mg/kg body weight for overall 5-day course. Depending on the clinical improvement will plan for further 5 days versus possible plasmapheresis. Monitor respiratory status. Monitor with daily NIF and FVC. Incentive spirometry and flutter valve. Physical therapy evaluation. Appreciate vitamin B12, folate, VDRL. HIV negative. Appreciate LALY panel for low complement levels. Thyroid peroxidase antibody pending. Urine toxicology negative EBV, CMV, HSV studies consistent with past infection. RPR reactive. Treponema confirmatory test sent out Appreciate MRI brain results. Lumbar puncture appreciated for bland CSF. Follow-up other CSF studies. Will follow-up CSF cultures for overall 48 hours. If remain negative we will plan to discontinue IV antibiotics. Bacterial antigen negative. MRSA swab negative. Respiratory viral panel negative. For now continue with IV ceftriaxone and vancomycin as per meningitis dosage. Stop acyclovir. Tachycardia: Sinus. Check EKG. Patient denies any pain, has remained afebrile. Does complain of mild anxiety to patient is on Xanax 1 mg 3 times daily as needed. Hydroxyzine at as needed dose. Start on [place] 5 mg every 6 hours as needed, Dilaudid to be changed to 0.5 every 8 as needed. Metoprolol 25 mg twice daily. Echocardiogram. Physical therapy evaluation. Out of bed to chair. Nicotine patch. Regular diet Full code Hold off on Lovenox for DVT prophylaxis given need for lumbar puncture. Will restart Lovenox after lung function. Protonix for PUD prophylaxis Plan for the day: Finish 7-day of IVIG. Last dose on 09/07. Continue with gabapentin and Requip at current dose. Continue with current dose of [place]. Change Dilaudid to 0.2 every 8 hours as needed. Continue with aggressive physical therapy. Out of bed to chair. Magnesium level better. Replete 1 g IV more. Continue with oral replacement. Replace potassium 40 mg orally. Monitor magnesium and potassium levels daily. Continue to follow-up CSF and blood cultures. So far negative. Last dose of IV antibiotics on 09/07. CSF Lyme, VDRL not detected. CSF ADA negative. Blood culture from admission 1 out of 4 bottles positive for Staphylococcus hominis. Most likely contaminant. Repeat blood culture from 09/02 and so far negative. Add protein shakes to diet. Discharge planning: Given significant deconditioning, weakness in lower limbs which seems to be improving patient would need acute rehab after completion of IVIG course to get back to her baseline. Discussed in detail with the patient and case management. Plan to discharge to LTAC. Patient has been accepted. 09/07: I am told that prior authorization has been declined. Have requested case management for possible transition to acute rehab. 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
[2024-09-08] MEDS: potassium chloride ER 20 mEq Tablet 40 MEQ PO (14:37)
[2024-09-08] MEDS: magnesium sulfate premix 1 GM/100 ML PIGGYBACK IV (15:03)
[2024-09-08] MEDS: gabapentin 300 mg Capsule PO ×2 (15:04→20:41)
[2024-09-08] MEDS: HYDROmorphone 1 mg/mL INJ 1 mL 0.5 MG IVP (16:17)
[2024-09-08] MEDS: pantoprazole 40 mg SDV IVP (20:36)
[2024-09-08] MEDS: ropinirole 0.25 mg Tablet PO (20:40)
[2024-09-09] VITALS (13 sets, daily range): BP systolic 114–141; BP diastolic 71–94; PULSE 100–117; RESP 16–18; TEMP 36.6–36.9; O2SAT 91–95
[2024-09-09] MEDS: HYDROmorphone 1 mg/mL INJ 1 mL 0.5 MG IVP ×3 (00:15→20:17)
[2024-09-09 05:43] LABS: Basophils % 0.9 %; Eosinophils # 0.2 10^3/uL (0.0-0.8); Eosinophils % 3.4 %; Hematocrit 28.2 % (36-47); Lymphocytes % 45.4 %; Mean Corpuscular HGB Conc 31.6 g/dL (30-55); Mean Corpuscular Hemoglobin 31.6 pg (27-33); Mean Platelet Volume 9.9 fL (7.4-10.4); Monocytes # 0.7 10^3/uL (0.2-0.9); Neutrophils # 1.51 10^3/uL (1.8-7.7); Neutrophils % 33.9 %; Nucleated Red Blood Cells % 0 %; Platelet Count 389 10^3/cmm (157-399); Red Blood Count 2.82 10^6/uL (3.85-5.65); Red Cell Distribution Width 18.6 % (12.1-15.1); White Blood Count 4.45 10^3/uL (3.29-11.43)
[2024-09-09 06:04] LABS: Alanine Aminotransferase < 5 U/L (0-33); Albumin Level 2.1 g/dL (3.5-5.2); Alkaline Phosphatase 99 U/L (35-105); Aspartate Amino Transferase 16 U/L (0-32); Blood Urea Nitrogen 4 mg/dL (6-20); Calcium 7.2 mg/dL (8.5-10.5); Carbon Dioxide 22 mmol/L (22-29); Chloride 104 mmol/L (98-107); Globulin 4.6 g/dL (1.3-4.6); Glomerular Filtration Rate 241.7 mL/min (90-130); Glucose 87 mg/dL (65-115); Magnesium 1.5 mg/dL (1.7-2.3); Osmolality Calculated 274 mOsm/kg (285-295); Sodium 134 mmol/L (136-145); Total Bilirubin 0.4 mg/dL (0.15-1.2); Total Protein 6.7 g/dL (6.6-8.7)
[2024-09-09 06:08] LABS: Anion Gap 11.6 (5-19); Creatinine Clr Calc Pharmacy 237.4258; Potassium 3.6 mmol/L (3.5-5.1)
[2024-09-09] MEDS: nicotine 21 mg Patch 1 PATCH TRANSDERMA (09:27)
[2024-09-09] MEDS: metoprolol tartrate 25 mg Tablet PO ×2 (09:27→20:16)
[2024-09-09] MEDS: magnesium oxide 400 mg tablet PO ×2 (09:27→17:01)
[2024-09-09] MEDS: folic acid 1 mg Tablet PO ×2 (09:27→17:01)
[2024-09-09] MEDS: gabapentin 300 mg Capsule PO ×3 (09:27→20:16)
[2024-09-09] MEDS: heparin 5,000 unit/mL INJ 1 mL 5000 UNIT SUBCUT ×2 (09:35→23:09)
--- NOTE | 2024-09-09 14:01 | PM.PN ---
Subjective Subjective: No acute events overnight. Patient states she is feeling better. Denies any nausea, vomiting, headache. Complaining of pain in her left calf muscle going all the way to thigh. Getting stronger. Hemodynamically stable and afebrile. Vitals/I&O/Wt Last Vital Signs Temp 98.0 F 09/09/24 11:48 Pulse 104 H 09/09/24 11:48 Resp 18 09/09/24 11:48 BP 141/92 09/09/24 11:48 Pulse Ox 92 09/09/24 11:48 O2 Del Method Room Air 09/09/24 11:48 09/08/24 09/09/24 09/09/24 22:59 06:59 14:59 Intake Total 100 / 340 Balance 100 / 340 Weight last 48 hrs Weight 75.07 kg Weight 75.251 kg Physical Exam Const: COMMON NORMALS: no acute distress, patient oriented x3 and alert ORIENTATION/CONSCIOUSNESS: Yes oriented to person and Yes oriented to place HENMT: COMMON NORMALS: normocephalic HEAD & SCALP: normocephalic Neck/C-Spine: COMMON NORMALS: no meningeal signs and no JVD Resp: COMMON NORMALS: normal respiratory effort, No retractions, No use of accessory muscles and clear to auscultation bilaterally AUSCULTATION: clear to auscultation bilaterally Cardio: COMMON NORMALS: no JVD, regular rate, regular rhythm, S1 normal heart sound present and S2 normal heart sound present RATE: regular rate RHYTHM: regular rhythm HEART SOUNDS: S1 normal heart sound present and S2 normal heart sound present GI: COMMON NORMALS: Normal to inspection, nondistended, normoactive bowel sounds present, Soft to palpation and non-tender PALPATION: Yes Soft to palpation Extremity: COMMON NORMALS: no calf tenderness and no pedal edema NARRATIVE EXTREMITY EXAM: Strength in upper limb bilaterally improving. Left arm 4/5, right 4/5. Elbow jerks reflex improving Neuro: LUCHO COMA SCALE: document GCS findings [place] coma scale eye opening: Spontaneous [place] coma scale verbal response: Orientated [place] coma scale motor response: Obey commands [place] coma scale total score: 15 COMMON NORMALS: patient oriented x3, CN's II-XII intact bilaterally and moves all extremities SENSORIUM/ORIENTATION: Yes alert, Yes oriented to person and Yes oriented to place MENINGEAL SIGNS: Yes no meningeal signs MOTOR EXAM: no tremor noted, no asterixis, No Motor fasciculations not present and Abnormal muscle tone present OTHER: Pupils bilaterally equal and reactive, Motor testing: Upper limb as above. 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 Cannot rule out though unlikely transverse mellitus given patient's symptoms and bilateral upper limb trances of transverse mellitus would be at a higher level. Appreciate MRI and neck without any concerns for transverse mellitus. Will check MRI with and without contrast of thoracic spine. 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 in setting of recent setting of sepsis. Did have concerns for altered mental status with hallucinations overnight. Seems to have resolved for now. Appreciate neurology recommendations. Continue with IVIG 400 mg/kg body weight for overall 5-day course. Depending on the clinical improvement will plan for further 5 days versus possible plasmapheresis. Monitor respiratory status. Monitor with daily NIF and FVC. Incentive spirometry and flutter valve. Physical therapy evaluation. Appreciate vitamin B12, folate, VDRL. HIV negative. Appreciate LALY panel for low complement levels. Thyroid peroxidase antibody pending. Urine toxicology negative EBV, CMV, HSV studies consistent with past infection. RPR reactive. Treponema confirmatory test sent out Appreciate MRI brain results. Lumbar puncture appreciated for bland CSF. Follow-up other CSF studies. Will follow-up CSF cultures for overall 48 hours. If remain negative we will plan to discontinue IV antibiotics. Bacterial antigen negative. MRSA swab negative. Respiratory viral panel negative. For now continue with IV ceftriaxone and vancomycin as per meningitis dosage. Stop acyclovir. Tachycardia: Sinus. Check EKG. Patient denies any pain, has remained afebrile. Does complain of mild anxiety to patient is on Xanax 1 mg 3 times daily as needed. Hydroxyzine at as needed dose. Start on [place] 5 mg every 6 hours as needed, Dilaudid to be changed to 0.5 every 8 as needed. Metoprolol 25 mg twice daily. Echocardiogram. Physical therapy evaluation. Out of bed to chair. Nicotine patch. Regular diet Full code Hold off on Lovenox for DVT prophylaxis given need for lumbar puncture. Will restart Lovenox after lung function. Protonix for PUD prophylaxis Plan for the day: Finish 7-day of IVIG. Last dose on 09/07. Continue with gabapentin and Requip at current dose. Continue with current dose of [place]. Continue with Dilaudid to 0.5 every 8 hours as needed. Continue with aggressive physical therapy. Out of bed to chair. Monitor magnesium and potassium level daily. Patient developing mild fluid overload. Oral Lasix 20 mg one-time. Follow-up CSF blood cultures. Last dose of IV antibiotics on 09/07. CSF Lyme, VDRL not detected. CSF ADA negative. Blood culture from admission 1 out of 4 bottles positive for Staphylococcus hominis. Most likely contaminant. Repeat blood culture from 09/02 and so far negative. Discharge planning: Given significant deconditioning, weakness in lower limbs which seems to be improving patient would need acute rehab after completion of IVIG course to get back to her baseline. Discussed in detail with the patient and case management. Plan to discharge to LTAC. Patient has been accepted. 09/07: I am told that prior authorization has been declined. Have requested case management for possible transition to acute rehab. Attestations Medical Necessity Statement*: Requires further hospitalization for management of AIDP, Guillain-Mcnair? 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
[2024-09-09] MEDS: HYDROcodone-acetaminophen 5-325 mg Tablet 1 TAB PO (14:13)
[2024-09-09] MEDS: ropinirole 0.25 mg Tablet PO (20:16)
[2024-09-09] MEDS: pantoprazole 40 mg SDV IVP (20:16)
[2024-09-09] MEDS: ALPRAZolam 0.5 mg Tablet 1 MG PO (23:09)
[2024-09-10] VITALS (10 sets, daily range): BP systolic 106–141; BP diastolic 74–97; PULSE 103–119; RESP 16–18; TEMP 36.5–37; O2SAT 90–95; BMI 26.7
[2024-09-10 05:23] LABS: Basophils % 0.9 %; Eosinophils # 0.2 10^3/uL (0.0-0.8); Eosinophils % 3.9 %; Hematocrit 26.7 % (36-47); Lymphocytes # 2.1 10^3/uL (0.8-4.8); Lymphocytes % 49.5 %; Mean Corpuscular HGB Conc 32.2 g/dL (30-55); Mean Corpuscular Hemoglobin 31.3 pg (27-33); Mean Corpuscular Volume 97.1 fl (85-98); Mean Platelet Volume 10.4 fL (7.4-10.4); Monocytes # 0.7 10^3/uL (0.2-0.9); Monocytes % 16.9 %; Neutrophils # 1.22 10^3/uL (1.8-7.7); Neutrophils % 28.3 %; Nucleated Red Blood Cells % 0 %; Platelet Count 395 10^3/cmm (157-399); Red Blood Count 2.75 10^6/uL (3.85-5.65); Red Cell Distribution Width 18.3 % (12.1-15.1); White Blood Count 4.32 10^3/uL (3.29-11.43)
[2024-09-10 05:46] LABS: Alanine Aminotransferase < 5 U/L (0-33); Alkaline Phosphatase 96 U/L (35-105); Anion Gap 10.8 (5-19); Aspartate Amino Transferase 19 U/L (0-32); Blood Urea Nitrogen 3 mg/dL (6-20); Carbon Dioxide 22 mmol/L (22-29); Chloride 100 mmol/L (98-107); Creatinine Clr Calc Pharmacy 237.4258; Globulin 4.4 g/dL (1.3-4.6); Glomerular Filtration Rate 241.7 mL/min (90-130); Glucose 86 mg/dL (65-115); Osmolality Calculated 266 mOsm/kg (285-295); Sodium 130 mmol/L (136-145); Total Bilirubin 0.3 mg/dL (0.15-1.2); Total Protein 6.4 g/dL (6.6-8.7)
[2024-09-10 05:54] LABS: Potassium 2.8 mmol/L (3.5-5.1)
[2024-09-10] MEDS: HYDROmorphone 1 mg/mL INJ 1 mL 0.5 MG IVP ×2 (06:21→20:28)
[2024-09-10] MEDS: potassium chloride ER 20 mEq Tablet 60 MEQ PO (06:22)
[2024-09-10] MEDS: folic acid 1 mg Tablet PO ×2 (08:19→17:07)
[2024-09-10] MEDS: nicotine 21 mg Patch 1 PATCH TRANSDERMA (08:19)
[2024-09-10] MEDS: gabapentin 300 mg Capsule PO ×3 (08:19→21:02)
[2024-09-10] MEDS: magnesium oxide 400 mg tablet PO ×2 (08:19→17:06)
[2024-09-10] MEDS: HYDROcodone-acetaminophen 5-325 mg Tablet 1 TAB PO (08:19)
[2024-09-10] MEDS: metoprolol tartrate 25 mg Tablet PO ×2 (08:19→21:02)
--- NOTE | 2024-09-10 09:27 | PC.NURSE ---
SCD: Pt refused SCD stating, It hurts my legs too bad.
[2024-09-10] MEDS: heparin 5,000 unit/mL INJ 1 mL 5000 UNIT SUBCUT ×2 (10:55→21:02)
[2024-09-10 11:44] LABS: Immunoglobulin G, CSF 8.1 mg/dL (0.8-7.7)
[2024-09-10] MEDS: oxyCODONE 5 mg IR Tab/Cap PO (14:32)
--- NOTE | 2024-09-10 15:01 | P.PN_ITS ---
Subjective 2 Subjective: Patient was seen this morning, she is alert oriented x 3, following all commands continues to complain of weakness that is persisting her lower extremity she feels that that her upper extremity weakness has improved, continues to complain of pain all over, but she tells me that today it is more in her lower back, no fevers, no chills, no urinary continence, no bowel incontinence no saddle or perianal anesthesia Vitals/I&O/Wt Last Vital Signs Temp 97.7 F 09/10/24 11:40 Pulse 103 H 09/10/24 11:40 Resp 18 09/10/24 14:32 BP 106/74 09/10/24 11:40 Pulse Ox 90 09/10/24 11:40 O2 Del Method Room Air 09/10/24 11:40 09/10/24 09/10/24 09/10/24 06:59 14:59 22:59 Intake Total 120 / 360 240 / 240 Balance 120 / 160 240 / 240 Weight last 48 hrs Weight 70.76 kg Weight 72.212 kg Weight 75.07 kg Physical Exam 2 Const: COMMON NORMALS: no acute distress and patient oriented x3 Resp: COMMON NORMALS: normal respiratory effort, No retractions, No use of accessory muscles and clear to auscultation bilaterally AUSCULTATION: clear to auscultation bilaterally Cardio: COMMON NORMALS: regular rate, regular rhythm, S1 normal heart sound present and S2 normal heart sound present RATE: regular rate RHYTHM: r egular rhythm HEART SOUNDS: S1 normal heart sound present and S2 normal heart sound present GI: COMMON NORMALS: Normal to inspection, nondistended, normoactive bowel sounds present Extremity: COMMON NORMALS: no pedal edema Neuro: COMMON NORMALS: patient oriented x3, CN's II-XII intact bilaterally and moves all extremities OTHER: Strength bilateral extremities, 2 out of 5 Has equal sensation bilateral lower extremities Psych: COMMON NORMALS: mental status grossly normal Data 09/10/24 04:16 09/10/24 04:16 A&P Assessment and plan (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 Monitor respiratory status -Monitor reflexes -Lumbar puncture, CSF clear, colorless, 0 WBCs, total protein 46, IgG 8.1, myelin antibody pending, Oligoclonal bands -RPR reactive, FTA-ABS pending -CSF VDRL negative -GQ 1 antibody -Head MRI no acute findings -Cervical MRI MR/MR cervical spin wo con* [id number] IMPRESSION: Central to left paracentral left C5-C6 disc protrusion causing mild thecal sac compression and severe left neural foraminal stenosis. Thoracic MRI MR/MR thoracic spine wo/w [id number] IMPRESSION: Images degraded by motion. 1. No lesions in the thoracic cord considering motion artifact. 2. No abnormal gadolinium enhancement. 3. Mild disc bulging T11-T12. 4. No significant central canal stenosis. -No significant radiographic evidence of transverse myelitis on MRI -Folic acid deficiency, 2.8 started on folic acid -IVIG completed for 7 days -Blood cultures no new growth -UTI, completed Rx -Echocardiogram showing moderate to severe mitral valve regurgitation, no chest pain complaints, or shortness of breath complaints will have patient follow-up with cardiology as outpatient -hep c antibody positive -Continues to have diffuse musculoskeletal pain complaints, de-escalate off Dilaudid as it is not a good long-term option, patient refused to use hydrocodone overnight as she wanted Dilaudid, will switch to oxycodone -Continues to have lower extremity weakness, will need rehab, PT OT -Full code -Lovenox for DVT prophylaxis Plan for today, replace potassium, PT OT, de-escalate off Dilaudid to oxycodone, Attestations 2 Medical Necessity Statement*: Patient requires hospitalization for AIDP, with persistent lower extremity weakness requiring rehab 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
[2024-09-10] MEDS: ropinirole 0.25 mg Tablet PO (21:02)
[2024-09-10] MEDS: ALPRAZolam 0.5 mg Tablet 1 MG PO (22:08)
[2024-09-11] VITALS (17 sets, daily range): BP systolic 98–150; BP diastolic 72–104; PULSE 101–119; RESP 14–20; TEMP 36.6–36.9; O2SAT 87–94
[2024-09-11] MEDS: oxyCODONE 5 mg IR Tab/Cap PO ×3 (00:25→20:03)
[2024-09-11 05:19] LABS: Basophils % 0.6 %; Eosinophils # 0.2 10^3/uL (0.0-0.8); Eosinophils % 3.3 %; Hematocrit 28.9 % (36-47); Lymphocytes # 2.4 10^3/uL (0.8-4.8); Lymphocytes % 49.9 %; Mean Corpuscular HGB Conc 32.2 g/dL (30-55); Mean Corpuscular Hemoglobin 32.1 pg (27-33); Mean Corpuscular Volume 99.7 fl (85-98); Mean Platelet Volume 10.1 fL (7.4-10.4); Monocytes # 0.8 10^3/uL (0.2-0.9); Monocytes % 16.6 %; Neutrophils % 29.2 %; Nucleated Red Blood Cells % 0 %; Platelet Count 375 10^3/cmm (157-399); Red Cell Distribution Width 18.3 % (12.1-15.1); White Blood Count 4.81 10^3/uL (3.29-11.43)
[2024-09-11 05:42] LABS: Anion Gap 12.1 (5-19); Blood Urea Nitrogen 2 mg/dL (6-20); Calcium 7.3 mg/dL (8.5-10.5); Carbon Dioxide 23 mmol/L (22-29); Chloride 104 mmol/L (98-107); Creatinine Clr Calc Pharmacy 173.2878; Glomerular Filtration Rate 173.4 mL/min (90-130); Glucose 96 mg/dL (65-115); Osmolality Calculated 278 mOsm/kg (285-295); Potassium 3.1 mmol/L (3.5-5.1); Sodium 136 mmol/L (136-145)
[2024-09-11] MEDS: folic acid 1 mg Tablet PO ×2 (08:44→16:59)
[2024-09-11] MEDS: magnesium oxide 400 mg tablet PO ×2 (08:44→16:59)
[2024-09-11] MEDS: nicotine 21 mg Patch 1 PATCH TRANSDERMA (08:44)
[2024-09-11] MEDS: pantoprazole DR 40 mg Tablet PO (08:44)
[2024-09-11] MEDS: metoprolol tartrate 25 mg Tablet PO ×2 (08:44→20:03)
[2024-09-11] MEDS: gabapentin 300 mg Capsule PO ×3 (08:44→20:03)
[2024-09-11] MEDS: heparin 5,000 unit/mL INJ 1 mL 5000 UNIT SUBCUT ×2 (10:26→20:04)
--- NOTE | 2024-09-11 12:07 | PC.OT ---
OT TREATMENT ATTEMPTED AT 1010; PATIENT SLEEPING SOUNDLY 1145 EATING LUNCH
--- NOTE | 2024-09-11 13:48 | PC.OT ---
OT TREATMENT ATTEMPTED PATIENT WAS EATING LUNCH. AT SECOND ATTEMPT; PATIENT BACK IN BED AND TEARFUL STATING THAT SHE HURTS ALL OVER AND CAN NOT PARTICIPATE IN THERAPY. GAVE SQUEEZE BALL AND ENCOURAGED PATIENT TO USE DURING COMMERCIALS FOR HAND STRENGTHENING AND ALSO ENCOURAGED PATIENT TO USE 8 OZ ENSURE BOTTLE FOR UE EXERCISES TO BUILD STRENGTH AND ENDURANCE. SHE REPORTS THAT SHE WILL DO SO.
--- NOTE | 2024-09-11 14:57 | PM.PN ---
Subjective Subjective: Patient was seen this morning, she is alert oriented x 3, following all commands, denies any fevers, no chills she tells me that the oxycodone is not strong enough for pain control, we discussed increasing the oxycodone to 1 to 2 tablets of the 5 mg every 6 hours as needed for pain, she is agreeable as Dilaudid is not a good long-term option for her, we discussed continuing PT OT she will need extensive rehab due to her persistent lower extremity weakness, we need her to try to sit up in a chair as much as she can throughout the day, do bed exercises, use the incentive spirometer to decrease risk of pneumonia, tried a tile power shear operator side to decrease risk of bedsores, continue calf raises and calf exercises decrease risk of DVTs, discussed in detail with patient, she voiced understanding, all questions answered, nursing staff at bedside Vitals/I&O/Wt Last Vital Signs Temp 97.9 F 09/11/24 11:41 Pulse 102 H 09/11/24 13:52 Resp 18 09/11/24 13:58 BP 98/72 09/11/24 11:41 Pulse Ox 92 09/11/24 13:52 O2 Del Method Room Air 09/11/24 13:52 09/10/24 09/11/24 09/11/24 22:59 06:59 14:59 Intake Total 240 / 240 Balance 240 / 240 Weight last 48 hrs Weight 70.851 kg Weight 70.76 kg Weight 72.212 kg Physical Exam Const: COMMON NORMALS: no acute distress and patient oriented x3 Resp: COMMON NORMALS: normal respiratory effort, No retractions, No use of accessory muscles and clear to auscultation bilaterally AUSCULTATION: clear to auscultation bilaterally Cardio: COMMON NORMALS: regular rate, regular rhythm, S1 normal heart sound present and S2 normal heart sound present RATE: regular rate RHYTHM: regular rhythm HEART SOUNDS: S1 normal heart sound present and S2 normal heart sound present GI: COMMON NORMALS: Normal to inspection, nondistended, normoactive bowel sounds present and non-tender Back/Pelvis: OTHER: Bilateral lower extremity strength, still diminished, good upper extremity strength Extremity: COMMON NORMALS: no pedal edema Neuro: COMMON NORMALS: patient oriented x3 Psych: COMMON NORMALS: mental status grossly normal Data 09/11/24 04:54 09/11/24 04:54 A&P Assessment and plan (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 Monitor respiratory status -Monitor reflexes -Lumbar puncture, CSF clear, colorless, 0 WBCs, total protein 46, IgG 8.1, myelin antibody pending, Oligoclonal bands -RPR reactive, FTA-ABS pending -CSF VDRL negative -GQ 1 antibody -Head MRI no acute findings -Cervical MRI MR/MR cervical spin wo con* [id number] IMPRESSION: Central to left paracentral left C5-C6 disc protrusion causing mild thecal sac compression and severe left neural foraminal stenosis. Thoracic MRI MR/MR thoracic spine wo/w [id number] IMPRESSION: Images degraded by motion. 1. No lesions in the thoracic cord considering motion artifact. 2. No abnormal gadolinium enhancement. 3. Mild disc bulging T11-T12. 4. No significant central canal stenosis. -No significant radiographic evidence of transverse myelitis on MRI -Folic acid deficiency, 2.8 started on folic acid -IVIG completed for 7 days -Blood cultures no new growth -UTI, completed Rx -Echocardiogram showing moderate to severe mitral valve regurgitation, no chest pain complaints, or shortness of breath complaints will have patient follow-up with cardiology as outpatient -hep c antibody positive -Continues to have diffuse musculoskeletal pain complaints, de-escalate off Dilaudid as it is not a good long-term option, patient refused to use hydrocodone overnight as she wanted Dilaudid, will switch to oxycodone -Continues to have lower extremity weakness, will need rehab, PT OT -Full code -Lovenox for DVT prophylaxis Plan for today, replace potassium, PT OT, d increased dose of oxycodone Attestations Medical Necessity Statement*: Patient requires hospitalization for acute ovarian syndrome 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
[2024-09-11] MEDS: ALPRAZolam 0.5 mg Tablet 1 MG PO (16:22)
[2024-09-11] MEDS: ropinirole 0.25 mg Tablet PO (20:03)
[2024-09-12] VITALS (22 sets, daily range): BP systolic 122–157; BP diastolic 50–87; PULSE 98–118; RESP 16–18; TEMP 36.8–37.1; O2SAT 91–93
[2024-09-12] MEDS: ketorolac 30 mg/mL INJ 15 MG IVP (00:27)
[2024-09-12 06:04] LABS: Basophils % 0.8 %; Eosinophils # 0.1 10^3/uL (0.0-0.8); Eosinophils % 2.9 %; Lymphocytes # 2.6 10^3/uL (0.8-4.8); Lymphocytes % 52.2 %; Mean Corpuscular HGB Conc 31.8 g/dL (30-55); Mean Corpuscular Hemoglobin 31.6 pg (27-33); Mean Corpuscular Volume 99.3 fl (85-98); Mean Platelet Volume 10.6 fL (7.4-10.4); Monocytes # 0.8 10^3/uL (0.2-0.9); Monocytes % 15.3 %; Neutrophils % 28.6 %; Nucleated Red Blood Cells % 0 %; Platelet Count 380 10^3/cmm (157-399); Red Blood Count 2.82 10^6/uL (3.85-5.65); Red Cell Distribution Width 17.7 % (12.1-15.1)
[2024-09-12 06:18] LABS: Anion Gap 12.3 (5-19); Blood Urea Nitrogen 2 mg/dL (6-20); Calcium 7.2 mg/dL (8.5-10.5); Carbon Dioxide 23 mmol/L (22-29); Chloride 104 mmol/L (98-107); Creatinine Clr Calc Pharmacy 234.5124; Glomerular Filtration Rate 241.7 mL/min (90-130); Glucose 90 mg/dL (65-115); Osmolality Calculated 278 mOsm/kg (285-295); Potassium 3.3 mmol/L (3.5-5.1); Sodium 136 mmol/L (136-145)
[2024-09-12] MEDS: gabapentin 300 mg Capsule PO ×3 (08:57→20:19)
[2024-09-12] MEDS: metoprolol tartrate 25 mg Tablet PO ×2 (08:57→20:19)
[2024-09-12] MEDS: potassium chloride ER 20 mEq Tablet 40 MEQ PO (08:57)
[2024-09-12] MEDS: magnesium oxide 400 mg tablet PO ×2 (08:57→17:15)
[2024-09-12] MEDS: folic acid 1 mg Tablet PO ×2 (08:58→17:14)
[2024-09-12] MEDS: pantoprazole DR 40 mg Tablet PO (08:58)
[2024-09-12] MEDS: nicotine 21 mg Patch 1 PATCH TRANSDERMA (08:58)
[2024-09-12] MEDS: heparin 5,000 unit/mL INJ 1 mL 5000 UNIT SUBCUT ×2 (09:45→20:19)
[2024-09-12] MEDS: oxyCODONE 5 mg IR Tab/Cap PO ×3 (09:48→23:42)
--- NOTE | 2024-09-12 10:57 | PC.OT ---
OT TREATMENT ATTEMPTED; PATIENT IN BED EATING BREAKFAST; STATES THAT SHE SLEPT ALL NIGHT. WOULD LIKE TO WAIT UNTIL AFTER BREAKFAST TO PERFORM SKILLED OT.
--- NOTE | 2024-09-12 16:12 | P.PN_ITS ---
Subjective 2 Subjective: Patient was seen this morning, she continues to have pain throughout the day and she tells me that the oxycodone 1 to 2 tablets does help but she has persistent pain throughout the day that is difficult to control we discussed trying oxycodone extended release in addition to her oxycodone IR, she is agreeable, will have to watch closely for side effects, watch out for narcotic overdose, will watch her respiratory status, she voices understanding Vitals/I&O/Wt Last Vital Signs Temp 98.7 F 09/12/24 15:16 Pulse 106 H 09/12/24 15:16 Resp 17 09/12/24 15:16 BP 128/86 09/12/24 15:16 Pulse Ox 92 09/12/24 15:16 O2 Del Method Room Air 09/12/24 15:16 Weight last 48 hrs Weight 73.142 kg Weight 70.851 kg Physical Exam 2 Const: COMMON NORMALS: no acute distress and patient oriented x3 Resp: COMMON NORMALS: normal respiratory effort, No retractions, No use of accessory muscles and clear to auscultation bilaterally AUSCULTATION: clear to auscultation bilaterally Cardio: COMMON NORMALS: regular rate, regular rhythm, S1 normal heart sound present and S2 normal heart sound present RATE: regular rate RHYTHM: r egular rhythm HEART SOUNDS: S1 normal heart sound present and S2 normal heart sound present GI: COMMON NORMALS: Normal to inspection, nondistended, normoactive bowel sounds present and non-tender Extremity: COMMON NORMALS: no pedal edema Neuro: COMMON NORMALS: patient oriented x3 Psych: COMMON NORMALS: mental status grossly normal Data 09/12/24 05:03 09/12/24 05:03 A&P Assessment and plan (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 Monitor respiratory status -Monitor reflexes -Lumbar puncture, CSF clear, colorless, 0 WBCs, total protein 46, IgG 8.1, myelin antibody pending, Oligoclonal bands -RPR reactive, FTA-ABS pending -CSF VDRL negative -GQ 1 antibody -Head MRI no acute findings -Cervical MRI MR/MR cervical spin wo con* [id number] IMPRESSION: Central to left paracentral left C5-C6 disc protrusion causing mild thecal sac compression and severe left neural foraminal stenosis. Thoracic MRI MR/MR thoracic spine wo/w [id number] IMPRESSION: Images degraded by motion. 1. No lesions in the thoracic cord considering motion artifact. 2. No abnormal gadolinium enhancement. 3. Mild disc bulging T11-T12. 4. No significant central canal stenosis. -No significant radiographic evidence of transverse myelitis on MRI -Folic acid deficiency, 2.8 started on folic acid -IVIG completed for 7 days -Blood cultures no new growth -UTI, completed Rx -Echocardiogram showing moderate to severe mitral valve regurgitation, no chest pain complaints, or shortness of breath complaints will have patient follow-up with cardiology as outpatient -hep c antibody positive -Continues to have diffuse musculoskeletal pain complaints, de-escalate off Dilaudid as it is not a good long-term option, - -continue oxycodone 5 mg 1 to 2 tablets every 4 hours as needed -Add extended release oxycodone 10 mg twice daily -Moderately severe mitral valve regurgitation on echo, no chest pain complaints, repeat blood cultures no growth will have patient follow-up cardiology for referral to CT surgery -Continues to have lower extremity weakness, will need rehab, PT OT -Full code -Lovenox for DVT prophylaxis Plan for today, replace potassium, PT OT, increased dose of oxycodone Attestations 2 Medical Necessity Statement*: Patient requires hospitalization for 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
[2024-09-12] MEDS: oxyCODONE 10 mg ER (12 HR) Tablet PO (17:14)
[2024-09-12 17:29] LABS: Myelin Oligodendrocyte CBA CSF NEGATIVE (NEGATIVE)
[2024-09-12] MEDS: ropinirole 0.25 mg Tablet PO (20:19)
[2024-09-12] MEDS: diphenhydrAMINE 25 mg Capsule PO (20:19)
[2024-09-12] MEDS: ALPRAZolam 0.5 mg Tablet 1 MG PO (20:19)
[2024-09-12 23:24] LABS: Oligoclonal Bands IGG, CSF ABSENT (ABSENT)
[2024-09-13] VITALS (14 sets, daily range): BP systolic 118–129; BP diastolic 77–89; PULSE 104–114; RESP 15–18; TEMP 36.8–37; O2SAT 90–94
[2024-09-13 00:19] LABS: Ganglioside GQ1b Antibody IgG <1:100 titer
[2024-09-13 06:32] LABS: Basophils % 0.8 %; Eosinophils # 0.2 10^3/uL (0.0-0.8); Eosinophils % 3.4 %; Hematocrit 29.1 % (36-47); Lymphocytes # 2.5 10^3/uL (0.8-4.8); Mean Corpuscular Hemoglobin 31.7 pg (27-33); Mean Corpuscular Volume 99.3 fl (85-98); Mean Platelet Volume 10.5 fL (7.4-10.4); Monocytes # 0.8 10^3/uL (0.2-0.9); Monocytes % 16.5 %; Neutrophils # 1.28 10^3/uL (1.8-7.7); Neutrophils % 27.1 %; Nucleated Red Blood Cells % 0 %; Platelet Count 376 10^3/cmm (157-399); Red Blood Count 2.93 10^6/uL (3.85-5.65); Red Cell Distribution Width 17.2 % (12.1-15.1); White Blood Count 4.73 10^3/uL (3.29-11.43)
[2024-09-13 07:29] LABS: Anion Gap 12.5 (5-19); Blood Urea Nitrogen 3 mg/dL (6-20); Calcium 7.5 mg/dL (8.5-10.5); Carbon Dioxide 25 mmol/L (22-29); Chloride 102 mmol/L (98-107); Creatinine Clr Calc Pharmacy 172.7359; Glomerular Filtration Rate 173.4 mL/min (90-130); Glucose 87 mg/dL (65-115); Osmolality Calculated 278 mOsm/kg (285-295); Potassium 3.5 mmol/L (3.5-5.1); Sodium 136 mmol/L (136-145)
[2024-09-13] MEDS: oxyCODONE 5 mg IR Tab/Cap PO ×2 (09:55→15:56)
[2024-09-13] MEDS: nicotine 21 mg Patch 1 PATCH TRANSDERMA (09:55)
[2024-09-13] MEDS: metoprolol tartrate 25 mg Tablet PO (09:56)
[2024-09-13] MEDS: folic acid 1 mg Tablet PO ×2 (09:56→17:02)
[2024-09-13] MEDS: magnesium oxide 400 mg tablet PO ×2 (09:56→17:02)
[2024-09-13] MEDS: heparin 5,000 unit/mL INJ 1 mL 5000 UNIT SUBCUT (09:56)
[2024-09-13] MEDS: gabapentin 300 mg Capsule PO ×2 (09:56→14:49)
[2024-09-13] MEDS: pantoprazole DR 40 mg Tablet PO (09:56)
[2024-09-13] MEDS: oxyCODONE 10 mg ER (12 HR) Tablet PO ×2 (09:56→17:02)
--- NOTE | 2024-09-13 10:44 | P.DS_ITS ---
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 Patient currently is alert oriented x 3, following all commands, she tells me that since her hospital discharge for her cholecystectomy she cannot walk, she cannot move bilateral legs, she tells me that she has developed paresthesias in her legs such that she can feel pain in her legs but she cannot sense that her legs are not there anymore, she can feel temperatures, she can feel my hand on her feet, but when she looks away, she loses sensation that her legs are there anymore, and she tells me that her weakness has been ascending for the last 2 weeks up to the hips, so much so that she cannot walk anymore and now it is in both arms, she has weakness of bilateral arms, and the similar paresthesias in both arms, she feels anxious, she denies any shortness of breath, no difficulty breathing, no nausea, no vomiting, no chest pain, no palpitations, no lightheadedness, no dizziness, no dysuria, she does report lower back pain no falls, no injuries, she has not received any vaccines recently, Patient was admitted to [facility] for 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, AIDP -With ascending weakness, sensory neuropathy, loss of reflexes bilateral extremity, diminished reflexes upper extremity -Inciting event is recent surgery -Monitored in the ICU -Monitored SVC, respiratory status, nif -Neurology was consulted -Started on IVIG completed 7 days of IVIG -Lumbar puncture -Lumbar puncture, CSF clear, colorless, 0 WBCs, total protein 46, IgG 8.1, myelin antibody pending, Oligoclonal bands -RPR reactive, FTA-ABS pending -CSF VDRL negative -GQ 1 antibody negative -mog ab screen IgG negative -LALY titers negative -Head MRI no acute findings -Patient was monitored in the ICU, moved to medical floors completed 7 days of IVIG, overall clinically improved -However on discharge patient continues to have significant lower extremity weakness, received extensive inpatient rehab -Patient will require extensive rehab, at intermediate care facility, patient was transferred to intermediate care facility for rehab -Follow-up with neurology For patient's chronic pain, diffuse joint pains, musculoskeletal pain, back pain -Initially she was dependent on Dilaudid -Transition to oxycodone IR -Escalated on oxycodone IR -Required oxycodone ER -On discharge patient is pain is well-controlled -She will be discharged on oxycodone ER 10 mg twice daily scheduled -With oxycodone IR 5 mg 1 to 2 tablets every 4 hours as needed -Advised to wean pain medications as tolerated, use sparingly, do not drive or operate machinery or drink while taking medication RPR was reactive -However CSF VDRL was negative -FTA-ABS is pending on discharge -Cervical MRI MR/MR cervical spin wo con* [id number] IMPRESSION: Central to left paracentral left C5-C6 disc protrusion causing mild thecal sac compression and severe left neural foraminal stenosis. Thoracic MRI MR/MR thoracic spine wo/w [id number] IMPRESSION: Images degraded by motion. 1. No lesions in the thoracic cord considering motion artifact. 2. No abnormal gadolinium enhancement. 3. Mild disc bulging T11-T12. 4. No significant central canal stenosis. -No significant radiographic evidence of transverse myelitis on MRI -Will have patient follow-up with Dr. Gonzalez as outpatient -Echocardiogram showing moderate to severe mitral valve regurgitation, no chest pain complaints, or shortness of breath, remained afebrile, blood cultures so far no growth, will have patient follow-up with cardiology as outpatient Physical Exam Const: COMMON NORMALS: no acute distress and patient oriented x3 Resp: COMMON NORMALS: normal respiratory effort, No retractions, No use of accessory muscles and clear to auscultation bilaterally AUSCULTATION: clear to auscultation bilaterally Cardio: COMMON NORMALS: regular rate, regular rhythm, S1 normal heart sound present and S2 normal heart sound present RATE: regular rate RHYTHM: regular rhythm HEART SOUNDS: S1 normal heart sound present and S2 normal heart sound present GI: COMMON NORMALS: Normal to inspection, nondistended, normoactive bowel sounds present and non-tender Extremity: COMMON NORMALS: no pedal edema Neuro: COMMON NORMALS: patient oriented x3 Psych: COMMON NORMALS: mental status grossly normal Discharge Data Studies Completed and Pending Completed Studies During Hospitalization Category Date Time Status CT abdomen pelvis wo con [id number] Stat Cat Scan 09/01/24 12:[address] cervical spin wo con* [id number] Stat Cat Scan 09/01/24 16:[address] head wo con* [id number] Stat Cat Scan 09/01/24 15:[address] lumbar spine wo con* [id number] Stat Cat Scan 09/01/24 16:[address] thoracic spin wo con* [id number] Stat Cat Scan 09/01/24 16:45 Completed FL guided lumbarpunc dx* [id number] Stat Exams 09/04/24 09:00 Completed XR foot LT 2V [id number] Routine Exams 09/06/24 09:38 Completed MR cervical spin wo con* [id number] Routine MRI 09/02/24 13:16 Completed MR head wo con* [id number] Routine MRI 09/03/24 04:04 Completed MR thoracic spine wo/w [id number] Routine MRI 09/04/24 10:44 Completed CV. echo complete* [id number] Routine Ultrasound 09/05/24 09:30 Completed US venous duplex lower extremity bilat [CV venous Ultrasound 09/01/24 13:14 [place] [id number]] Stat Pending at discharge Category Date Time Status NE nerve conduction velocity Routine Exams 09/05/24 10:13 Ordered FTA [Treponema pallidum Ab] Routine Lab 09/04/24 03:35 Received Immunofixation, CSF Routine Lab 09/01/24 18:38 Results Myelin Oligodendrocyte AB CSF Routine Lab 09/01/24 18:38 Results Radiology Impressions Abdomen/Pelvis CT 09/01/24 12:39 IMPRESSION: 1. Limited noncontrast examination. 2. Liquefied stool and air-fluid levels in the colon, suggestive of diarrheal illness. 3. Small pleural effusions. 4. Trace pericardial effusion. 5. Additional findings, as above. Venous Duplex 09/01/24 13:14 IMPRESSION: No sonographic evidence of deep venous thrombosis. Head CT 09/01/24 15:[address]: 1[address] evidence of acute intracranial pathology. 2. Additional findings, as above. Cervical Spine CT 09/01/24 16:13 IMPRESSION: 1. Left C5-C6 disc protrusion, resulting in mild spinal canal and severe left neural foraminal stenosis. 2. Additional findings, as above. Lumbar Spine CT 09/01/24 16:13 IMPRESSION: No acute findings. Thoracic Spine CT 09/01/24 16:45 IMPRESSION: 1. No acute abnormalities of the thoracic spine. 2. Small volume pleural effusions, right greater than left, with posterior basilar atelectasis Cervical Spine MRI 09/02/24 13:16 IMPRESSION: Central to left paracentral left C5-C6 disc protrusion causing mild thecal sac compression and severe left neural foraminal stenosis. Head MRI 09/03/24 04:04 IMPRESSION: 1. No evidence of acute intracranial abnormality. Lumbar Puncture Fluoroscopy 09/04/24 09:00 IMPRESSION: 1. Fluoroscopically guided lumbar puncture. No immediate complications 2. 13 cc clear CSF collected and sent to the lab for further analysis 3. Opening pressure 19 cmH2O Thoracic Spine MRI 09/04/24 10:44 IMPRESSION: Images degraded by motion. 1. No lesions in the thoracic cord considering motion artifact. 2. No abnormal gadolinium enhancement. 3. Mild disc bulging T11-T12. 4. No significant central canal stenosis. Foot X-Ray 09/06/24 09:38 Impression: Negative left foot. Laboratory Results WBC 4.73 10^3/uL (3.29-11.43) 09/13/24 04:57 RBC 2.93 10^6/uL (3.85-5.65) L 09/13/24 04:57 Hgb 9.30 g/dL (11.27-16.99) L 09/13/24 04:57 Hct 29.1 % (36-47) L 09/13/24 04:57 MCV 99.3 fl (85-98) H 09/13/24 04:57 MCH 31.7 pg (27-33) 09/13/24 04:57 MCHC 32.0 g/dL (30-55) 09/13/24 04:57 RDW 17.2 % (12.1-15.1) H 09/13/24 04:57 Plt Count 376 10^3/cmm (157-399) 09/13/24 04:57 MPV 10.5 fL (7.4-10.4) H 09/13/24 04:57 Neut % (Auto) 27.1 % 09/13/24 04:57 Lymph % (Auto) 52.0 % 09/13/24 04:57 [place] % (Auto) 16.5 % 09/13/24 04:57 Eos % (Auto) 3.4 % 09/13/24 04:57 Baso % (Auto) 0.8 % 09/13/24 04:57 Neut # (Auto) 1.28 10^3/uL (1.8-7.7) L 09/13/24 04:57 Lymph # (Auto) 2.5 10^3/uL (0.8-4.8) 09/13/24 04:57 [place] # (Auto) 0.8 10^3/uL (0.2-0.9) 09/13/24 04:57 Eos # (Auto) 0.2 10^3/uL (0.0-0.8) 09/13/24 04:57 Baso # (Auto) 0.0 10^3/uL (0.0-0.1) 09/13/24 04:57 Nucleated RBC % (auto) 0 % 09/13/24 04:57 Nucleated RBCs # 0.0 /100WBC 09/13/24 04:57 ESR 10 mm/hr (0-15) 09/01/24 12:07 PT 15.10 SECONDS (12.1-14.9) H 09/01/24 16:49 INR 1.16 (0.8-1.2) 09/01/24 16:49 Sodium 136 mmol/L (136-145) 09/13/24 04:57 Potassium 3.5 mmol/L (3.5-5.1) 09/13/24 04:57 Chloride 102 mmol/L (98-107) 09/13/24 04:57 Carbon Dioxide 25 mmol/L (22-29) 09/13/24 04:57 Anion Gap 12.5 (5-19) 09/13/24 04:57 BUN 3 mg/dL (6-20) L 09/13/24 04:57 Creatinine 0.4 mg/dL (0.5-0.9) L 09/13/24 04:57 GFR Calculation 173.4 mL/min (90-130) H 09/13/24 04:57 Glucose 87 mg/dL (65-115) 09/13/24 04:57 POC Glucose 112 mg/dL (70-110) H 09/03/24 03:36 Estimat Average Glucose 82 09/01/24 12:07 Hemoglobin A1c 4.5 % (4.0-6.0) 09/01/24 12:07 Calculated Osmolality 278 mOsm/kg (285-295) L 09/13/24 04:57 Lactic Acid 1.4 mmol/L (0.5-2.2) 09/01/24 16:49 Calcium 7.5 mg/dL (8.5-10.5) L 09/13/24 04:57 Magnesium 1.5 mg/dL (1.7-2.3) L 09/09/24 05:04 Iron 26 ug/dL (37-145) L 09/03/24 04:52 TIBC 95 mcg/dl 09/03/24 04:52 % Saturation 27.3 % (20-50) 09/03/24 04:52 Unsat Iron Binding 69 ug/dL (112-347) L 09/03/24 04:52 Total Bilirubin 0.3 mg/dL (0.15-1.2) 09/10/24 04:16 AST 19 U/L (0-32) 09/10/24 04:16 ALT < 5 U/L (0-33) 09/10/24 04:16 Alkaline Phosphatase 96 U/L (35-105) 09/10/24 04:16 C-Reactive Protein 3.0 mg/L (0.0-4.9) 09/01/24 12:07 NT-Pro-B Natriuret Pep 370 pg/mL (0-125) H 09/01/24 16:49 Total Protein 6.4 g/dL (6.6-8.7) L 09/10/24 04:16 Albumin 2.0 g/dL (3.5-5.2) L 09/10/24 04:16 Globulin 4.4 g/dL (1.3-4.6) 09/10/24 04:16 Triglycerides 100 mg/dL (0-150) 09/01/24 12:07 Cholesterol 93 mg/dL (0-200) 09/01/24 12:07 LDL Cholesterol, Calc 43 mg/dL (50-129) L 09/01/24 12:07 HDL Cholesterol 30 mg/dL (60-100) L 09/01/24 12:07 LDL/HDL Ratio 1.43 RATIO (0.00-3.22) 09/01/24 12:07 Cholesterol/HDL Ratio 3.10 mg/dL (0.0-4.40) 09/01/24 12:07 Lipase 17 U/L (13-60) 09/01/24 12:07 Vitamin B1 <6 nmol/L (8-30) L 09/01/24 05:23 Vitamin B12 779 pg/mL (232-1245) 09/01/24 16:49 Folate 2.8 ng/mL (4.8-37.3) L 09/01/24 16:49 Procalcitonin 0.14 ng/mL (0-0.5) 09/03/24 04:52 TSH 4.77 uIU/mL (0.27-4.20) H 09/01/24 12:07 Urine Color [place] (Yellow) A 09/01/24 13:10 Urine Appearance Cloudy (CLEAR) A 09/01/24 13:10 Urine pH 7.0 (5-7) 09/01/24 13:10 Ur Specific [place] 1.015 (1.005-1.030) 09/01/24 13:10 Urine Protein Trace (Negative) A 09/01/24 13:10 Urine Glucose (UA) Negative (Normal) 09/01/24 13:10 Urine Ketones Trace (Negative) 09/01/24 13:10 Urine Blood Negative (Negative) 09/01/24 13:10 Urine Nitrate Negative (Negative) 09/01/24 13:10 Urine Bilirubin 1+ (Negative) H 09/01/24 13:10 Urine Urobilinogen 1.0 mg/dL (Negative) 09/01/24 13:10 Ur Leukocyte Esterase 1+ (Negative) A 09/01/24 13:10 Urine RBC 0-2 /hpf (0-2) 09/01/24 13:10 Urine WBC 0-5 /hpf (0-5) 09/01/24 13:10 Ur Squamous Epith Cells 11-20 /hpf (0-5) 09/01/24 13:10 Amorphous Sediment Not Reportable 09/01/24 13:10 Urine Bacteria 1+ /hpf (NONE) H 09/01/24 13:10 Hyaline Casts 2.87 /lpf 09/01/24 13:10 CSF Appearance Clear (CLEAR) 09/04/24 09:25 CSF Color Colorless (COLORLESS) 09/04/24 09:25 CSF Specific Hope 1.005 09/04/24 09:25 CSF WBC 0 /uL (0-5) 09/04/24 09:25 CSF RBC 0 10^3/uL (0-0) 09/04/24 09:25 CSF Mononuclear # Auto 0.000 10^3/uL (50-90) L 09/04/24 09:25 CSF Mononuclear WBCs % TNP 09/04/24 09:25 CSF Polynuclear WBCs # 0.000 10^3/uL (0-10) 09/04/24 09:25 CSF Polynuclear WBCs % TNP 09/04/24 09:25 CSF Diff Comment Yes 09/04/24 09:25 CSF Glucose 57 mg/dL (40-70) 09/04/24 09:25 CSF Adenosine Deaminase 0.3 U/L (<7.0) 09/04/24 09:25 CSF Total Protein 46 mg/dL (15-45) H 09/04/24 09:25 CSF IgG 8.1 mg/dL (0.8-7.7) H 09/04/24 09:25 CSF Immunofixation see note 09/04/24 09:25 CSF/Ser Oligoclon Bands Absent (ABSENT) 09/04/24 09:25 CSF VDRL Non-reactive 09/04/24 09:25 CSF Lyme IgG (Immblot) No bands detected 09/04/24 09:25 CSF Lyme IgM (Immblot) No bands detected 09/04/24 09:25 Nasal MRSA (PCR) Not detected (Not Detecte) 09/05/24 13:55 Vancomycin Trough 42.5 ug/mL (10-15) H* 09/05/24 14:36 Random Vancomycin 19.7 ug/mL (20.0-40.0) L 09/06/24 04:20 Urine Opiates Screen Positive ng/mL (Negative) H 09/01/24 21:30 Ur Barbiturates Screen Negative ng/mL (Negative) 09/01/24 21:30 Ur Phencyclidine Scrn Negative ng/mL (Negative) 09/01/24 21:30 Ur Amphetamines Screen Negative ng/mL (Negative) 09/01/24 21:30 U Benzodiazepines Scrn Negative ng/mL (Negative) 09/01/24 21:30 Urine Cocaine Screen Negative ng/mL (Negative) 09/01/24 21:30 U Marijuana (THC) Screen Negative ng/mL (Negative) 09/01/24 21:30 Ethyl Alcohol < 10 mg/dL (0-10) 09/01/24 16:49 LALY IFA Animal Tis Res Negative (NEGATIVE) 09/01/24 18:27 DASH-1 Antibody <1.0 neg AI (<1.0 NEG) 09/01/24 18:27 SS-A Antibody <1.0 neg AI (<1.0 NEG) 09/01/24 18:27 SS-B Antibody <1.0 neg AI (<1.0 NEG) 09/01/24 18:27 Sm (Hernandez) Antibody <1.0 neg AI (<1.0 NEG) 09/01/24 18:27 [employer]IST Antibody <1.0 neg AI (<1.0 NEG) 09/01/24 18:27 Scl-70 Antibody <1.0 neg AI (<1.0 NEG) 09/01/24 18:27 Anti-ds DNA IgG (Crith) Negative (NEGATIVE) 09/01/24 18:27 Centromere B Antibody <1.0 neg AI (<1.0 NEG) 09/01/24 18:27 Ganglio (GQ1b) IgG (EIA) <1:100 titer 09/03/24 14:53 MOG Ab Screen IgG Negative (NEGATIVE) 09/04/24 09:25 Thyroid Peroxidase Ab <1 IU/mL (<9) 09/01/24 18:27 Complement C3c 52 mg/dL (83-193) L 09/01/24 18:27 Complement C4c 9 mg/dL (15-57) L 09/01/24 18:27 CH50 Classical Pathway 28 U/mL (31-60) L 09/01/24 18:27 RPR Reactive (Nonreactive) 09/03/24 21:33 Adenovirus (PCR) Not detected (NOT DETECT) 09/03/24 15:00 Lyme IgG Bands Present Not Reportable 09/04/24 09:25 Lyme IgM Bands Present Not Reportable 09/04/24 09:25 C. pneumoniae DNA (PCR) Not detected (NOT DETECT) 09/03/24 15:00 Coronavirus 229E (PCR) Not detected (NOT DETECT) 09/03/24 15:00 CMV IgG Ab >10.00 U/mL H 09/03/24 14:53 CMV IgM Ab <30.00 AU/mL 09/03/24 14:53 EBV IgG Ab >750.00 U/mL H 09/03/24 14:53 EBV IgM Ab <36.00 U/mL 09/03/24 14:53 EBV Nuclear Antigen >600.00 U/mL H 09/03/24 14:53 EBV Interpretation See note 09/03/24 14:53 Hepatitis A IgM Ab Non-reactive (Nonreactive) 09/01/24 18:23 Hep Bs Antigen Non-reactive (Nonreactive) 09/01/24 18:23 Hep B Core IgM Ab Non-reactive (Nonreactive) 09/01/24 18:23 Hepatitis C Antibody Reactive (Nonreactive) H 09/01/24 18:23 HCV RNA (PCR) IUs/ml <1.18 not detected Log IU/mL (NOT DETECTED) 09/01/24 22:08 HCV RNA (PCR) IU log10 <15 not detected IU/mL (NOT DETECTED) 09/01/24 22:08 HSV I IgG Ab 49.30 index H 09/03/24 14:53 HSV II IgG 5.98 index H 09/03/24 14:53 HIV 1&2 Ab & HIV 1 Ag Non-reactive (Non-Reactiv) 09/01/24 18:23 HIV 1&2 Antibody Non-reactive (Non-Reactiv) 09/01/24 18:23 Human Metapneumovir PCR Not detected (NOT DETECT) 09/03/24 15:00 Influenza A (H1) PCR Not detected (NOT DETECT) 09/03/24 15:00 Influ A (H1/09) PCR Not detected (NOT DETECT) 09/03/24 15:00 Influenza A (H3) PCR Not detected (NOT DETECT) 09/03/24 15:00 Influenza Type A (PCR) Not detected (NOT DETECT) 09/03/24 15:00 Influenza Type B (PCR) Not detected (NOT DETECT) 09/03/24 15:00 M. pneumoniae (PCR) Not detected (NOT DETECT) 09/03/24 15:00 Parainfluenza 1 (PCR) Not detected (NOT DETECT) 09/03/24 15:00 Parainfluenza 2 (PCR) Not detected (NOT DETECT) 09/03/24 15:00 Parainfluenza 3 (PCR) Not detected (NOT DETECT) 09/03/24 15:00 Parainfluenza 4 (PCR) Not detected (NOT DETECT) 09/03/24 15:00 RSV Type A (PCR) Not detected (NOT DETECT) 09/03/24 15:00 RSV Type B (PCR) Not detected (NOT DETECT) 09/03/24 15:00 Entero/Rhino (PCR) Not detected (NOT DETECT) 09/03/24 15:00 SARS-CoV-2 (PCR) Not detected (NOT DETECT) 09/03/24 15:00 Group A Strep Rapid Negative (Negative) 09/05/24 13:55 Vitals Last Vital Signs Temp 98.3 F 09/13/24 07:22 Pulse 114 H 09/13/24 07:22 Resp 18 09/13/24 09:55 BP 126/84 09/13/24 07:22 Pulse Ox 90 09/13/24 07:22 O2 Del Method Room Air 09/13/24 07:22 Discharge Plan Discharge Patient Disposition: Home Condition: Stable Prescriptions: New alprazolam 0.5 mg Tablet 1 mg PO BID PRN (Reason: Anxiety) 7 Days Qty: 14 0RF magnesium oxide 400 mg (241.3 mg magnesium) Tablet 400 mg PO BID 30 Days Qty: 60 0RF nicotine 21 mg/24 hr Patch 24 Hour 1 patch transdermal DAILY 28 Days Qty: 28 0RF gabapentin 300 mg Capsule 300 mg PO TID 30 Days Qty: 90 0RF folic acid 1 mg Tablet 1 mg PO BID 30 Days Qty: 60 0RF metoprolol tartrate 25 mg Tablet 25 mg PO BID@0900,2100 30 Days Qty: 60 0RF ropinirole 0.25 mg Tablet 0.25 mg PO BEDTIME 30 Days Qty: 30 0RF oxycodone 5 mg Tablet 5 - 10 mg PO Q6H PRN (Reason: Moderate Pain) 7 Days Qty: 56 0RF oxycodone [OxyContin] 10 mg Tablet,Oral Only,Ext.Rel.12 Hr 10 mg PO BID 7 Days Qty: 14 0RF Changed cyclobenzaprine 5 mg tablet 5 mg PO TID PRN (Reason: muscle spasm) 30 Days Qty: 30 0RF Discontinued hydroxyzine HCl 50 mg tablet 1 mg PO TID hydrochlorothiazide 12.5 mg capsule 1 mg PO DAILY diclofenac potassium 50 mg tablet 50 mg PO TID Discharge Orders: Discharge Order (Routine); Ordered 09/13/24 Ordered By: Hamzah Melissa Referrals: Jordan Gonzalez DO [Physician] - 1 month (cervical disc disease, lumbar disease ) Jadiel Persaud MD [Physician] - (We have notified your physician's clinic of the need for a follow-up appointment to be scheduled. If you have not heard from them within the next 2 business days, please call them directly. ) Mark Rebolledo M.D [Physician] - 2 weeks Raya Milan FNP [Primary Care Provider] - Discharge Diet: Cardiac Discharge Activity: Resume usual activity Patient Instructions: Opioid Safety Activity Restrictions/Additional Instructions: - Please use oxycodone sparingly for pain, do not drive or operate heavy machinery or drink while taking medication -Please follow-up with Dr. Persaud -Please follow-up with Dr. 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
--- NOTE | 2024-09-13 11:46 | PC.OT ---
OT TREATMENT HELD TODAY DUE TO SCHEDULED PATIENT D/C
[2024-09-13] MEDS: diphenhydrAMINE 25 mg Capsule PO (12:29)
[2024-09-13 20:59] LABS: Treponema pallidum Ab NON-REACTIVE
== END 2024-09-13 17:20 | DRG 94 ==
LOC: ER 17:18 → ICU 17:51 → MEDSURG 09-05 14:59
PROVIDERS: Student in an Organized Health Care Education/Training Program; Admitting Provider Family Medicine; Emergency Provider Family Medicine; PCP Nurse Practitioner Family; Visit Provider Family Medicine
DX: G61.0 Guillain-Barre syndrome (principal); G92.8 Other toxic encephalopathy; I34.0 Nonrheumatic mitral (valve) insufficiency; G89.29 Other chronic pain; M25.50 Pain in unspecified joint; M79.18 Myalgia, other site; M54.9 Dorsalgia, unspecified; M50.322 Other cervical disc degeneration at C5-C6 level; M48.02 Spinal stenosis, cervical region; E83.42 Hypomagnesemia
CPT/HCPCS: 36415; 36416; 62328; 70450; 70551; 72125; 72128; 72131; 72141; 72157; 73620; 74176; 80048; 80053; 80061; 80074; 80202; 80306; 80307; 80503; 81001; 82607; 82746; 82784; 82945; 82962; 83036; 83520; 83540; 83550; 83605; 83690; 83735; 83880; 83916; 84145; 84157; 84311; 84315; 84425; 84443; 85025; 85610; 85651; 86140; 86160; 86162; 86235; 86255; 86335; 86376; 86403; 86592; 86617; 86664; 86665; 86695; 86696; 86780; 87040; 87070; 87075; 87077; 87081; 87150; 87186; 87205; 87486; 87522; 87581; 87633; 87806; 87880; 89050; 93005; 93306; 93970; 94010; 94664; 96372; 96374; 96375; 96376; 97110; 97140; 97161; 97167; 97530; 97535; 99285; J0133; J0696; J1171; J1459; J1644; J1650; J1885; J2270; J2360; J2470; J3370; J3475; J7030; J7050; L4396

== ENCOUNTER 2024-10-14 07:52 | Inpatient (IN) | payer MEDICAID, SELFPAY ==
[2024-10-14] VITALS (13 sets, daily range): BP systolic 121–155; BP diastolic 77–96; PULSE 64–124; RESP 16–20; TEMP 36.7–36.9; O2SAT 94–100; BMI 21.8
[2024-10-14 08:44] LABS: Basophils # 0.1 10^3/uL (0.0-0.1); Basophils % 0.6 %; Eosinophils # 0.1 10^3/uL (0.0-0.8); Eosinophils % 0.9 %; Hematocrit 36.6 % (36-47); Lymphocytes # 3.2 10^3/uL (0.8-4.8); Lymphocytes % 35.7 %; Mean Corpuscular HGB Conc 34.7 g/dL (30-55); Mean Corpuscular Volume 86.3 fl (85-98); Mean Platelet Volume 10.5 fL (7.4-10.4); Monocytes # 0.9 10^3/uL (0.2-0.9); Monocytes % 10.1 %; Neutrophils # 4.65 10^3/uL (1.8-7.7); Neutrophils % 52.5 %; Nucleated Red Blood Cells % 0 %; Platelet Count 283 10^3/cmm (157-399); Red Blood Count 4.24 10^6/uL (3.85-5.65); Red Cell Distribution Width 14.4 % (12.1-15.1); White Blood Count 8.87 10^3/uL (3.29-11.43)
[2024-10-14 09:00] LABS: Alanine Aminotransferase 9 U/L (0-33); Albumin Level 3.2 g/dL (3.5-5.2); Alkaline Phosphatase 95 U/L (35-105); Aspartate Amino Transferase 19 U/L (0-32); Blood Urea Nitrogen 2 mg/dL (6-20); Calcium 8.4 mg/dL (8.5-10.5); Carbon Dioxide 20 mmol/L (22-29); Chloride 97 mmol/L (98-107); Creatinine Clr Calc Pharmacy 211.0357; Globulin 3.4 g/dL (1.3-4.6); Glomerular Filtration Rate 241.7 mL/min (90-130); Glucose 108 mg/dL (65-115); Osmolality Calculated 269 mOsm/kg (285-295); Sodium 131 mmol/L (136-145); Total Bilirubin 0.6 mg/dL (0.15-1.2); Total Protein 6.6 g/dL (6.6-8.7)
--- NOTE | 2024-10-14 09:01 | ED_ITS ---
HPI - General Adult 2 General: Chief complaint: General Medical Stated complaint: feet and hands numb tingling, losss of apptite Time Seen by Provider: 10/14/24 08:06 History of Present Illness: 43-year-old female presents to the emerg ency room complaining hands and feet numb and tingling decreased appetite difficulty with walking unable to care for self. We admitted her On September 01 she had a prolonged hospital stay she was ultimately diagnosed with Guillain-Mcnair? and on September 13 was transferred to [facility] she was at [facility] for 2 weeks and discharged home. Now she is having recurrence of symptoms she is unable to care for herself she feels like she did when she was initially admitted. She has weakness in her lower extremities unable to lift her legs. She complains of myalgias systemically. Just prior to this entire event she had a cholecystectomy but she has recovered well from. She also had an MRI at the time of her last hospitalization there was a disc bulge at C5-6 Dr. Gonzalez was consulted he felt since her symptoms were so diffuse that did disc bulge does not be immediate problem. Associated symptoms: Deny chest pain, dyspnea or rash Related Data Home Medications Medication Instructions Recorded Confirmed diclofenac potassium 50 mg tablet 50 mg PO TID PRN Pain 10/14/24 10/14/24 hydroxyzine HCl 50 mg tablet 50 mg PO TID PRN Anxiety 10/14/24 10/14/24 Previous Rx's Medication Instructions Recorded cyclobenzaprine 5 mg tablet 5 mg PO TID PRN muscle spasm 30 09/13/24 days #30 tabs Allergies Allergy/AdvReac Type Severity Reaction Status Date / Time Penicillins Allergy ALGY-Rash Verified 10/14/24 08:22 shellfish derived Allergy Unknown Verified 10/14/24 08:22 Review of Systems 2 Const: Denies: fever(s) or chills Card: Denies: chest pain Resp: Denies: dyspnea GI: Denies: abdominal pain : Denies: dysuria, urinary frequency or urinary urgency Musc: Denies: neck pain or back pain Skin/Breast: Denies: rash PFSH ED 2 PFSH: Medical History Biliary colic Surgical History History of tubal ligation Family History Grandmother Breast cancer maternal Colon cancer maternal Hypercholesteremia maternal Hypertension maternal Mother Uterine cancer Grandfather Hypercholesteremia Hypertension maternal Denies family history of Ovarian cancer Diabetes mellitus type 1 Diabetes mellitus, type 2 Heart disease Thyroid disease Stroke Social History Smoking and tobacco/nicotine status: current every day tobacco/nicotine user Physical Exam 2 Const: COMMON NORMALS: no acute distress GENERAL APPEARANCE: cooperative and comfortable ORIENTATION/CONSCIOUSNESS: Yes awake, Yes oriented to person, Yes oriented to place and Yes oriented to time HENMT: COMMON NORMALS: normocephalic, atraumatic and hearing grossly normal bilaterally HEAD & SCALP: normocephalic and atraumatic Resp: COMMON NORMALS: normal respiratory effort, No retractions, No use of accessory muscles and clear to auscultation bilaterally AUSCULTATION: clear to auscultation bilaterally Cardio: COMMON NORMALS: regular rate, regular rhythm and No murmurs present (Cardio) RATE: regular rate RHYTHM: regular rhythm GI: COMMON NORMALS: Soft to palpation and No hepatosplenomegaly present A USCULTATION: Yes normoactive bowel sounds PALPATION: Yes Soft to palpation, No Tenderness to palpation present (GI), No Guarding due to palpation present (GI) and Yes No hepatosplenomegaly present Extremity: COMMON NORMALS: normal to inspection, capillary refill normal, no clubbing, cyanosis or edema, no calf tenderness and no pedal edema Neuro: SENSORIUM/ORIENTATION: Yes oriented to person, Yes oriented to place and Yes oriented to time OTHER: Weakness no lower extremity she is able to flex at the hips but has 2-3 of 5 strength at best. She is able to plantar and dorsiflex. Deep tendon reflexes difficult to elicit the patellar tendons. Skin: COMMON NORMALS: no rashes or lesions noted GENERAL SKIN EXAM: no rashes or lesions noted Course 2 Vital Signs: Vital signs: Vital Signs Temperature 98.0 F 10/14/24 08:11 Pulse Rate 101 H 10/14/24 12:40 Respiratory Rate 17 10/14/24 08:11 Blood Pressure 135/77 10/14/24 12:40 Pulse Oximetry 98 10/14/24 12:40 Oxygen Delivery Me thod Room Air 10/14/24 11:14 MDM - General Adult Medical Decision Making Discussed patient's case with Dr. Bettencourt operations officer afloat for neurology as well as the hospitalist. She has had worsening since being released from [facility] hospital will admit for IVIG reassess. Patient may need to consider long-term rehab she is agreeable to this. Medical Records I reviewed the patient's medical records. Lab Data I reviewed the patient's lab results. 10/14/24 08:32 10/14/24 08:32 Laboratory Results WBC 8.87 10^3/uL (3.29-11.43) 10/14/24 08:32 RBC 4.24 10^6/uL (3.85-5.65) 10/14/24 08:32 Hgb 12.70 g/dL (11.27-16.99) 10/14/24 08:32 Hct 36.6 % (36-47) 10/14/24 08:32 MCV 86.3 fl (85-98) 10/14/24 08:32 MCH 30.0 pg (27-33) 10/14/24 08:32 MCHC 34.7 g/dL (30-55) 10/14/24 08:32 RDW 14.4 % (12.1-15.1) 10/14/24 08:32 Plt Count 283 10^3/cmm (157-399) 10/14/24 08:32 MPV 10.5 fL (7.4-10.4) H 10/14/24 08:32 Neut % (Auto) 52.5 % 10/14/24 08:32 Lymph % (Auto) 35.7 % 10/14/24 08:32 Fleming % (Auto) 10.1 % 10/14/24 08:32 Eos % (Auto) 0.9 % 10/14/24 08:32 Baso % (Auto) 0.6 % 10/14/24 08:32 Neut # (Auto) 4.65 10^3/uL (1.8-7.7) 10/14/24 08:32 Lymph # (Auto) 3.2 10^3/uL (0.8-4.8) 10/14/24 08:32 Fleming # (Auto) 0.9 10^3/uL (0.2-0.9) 10/14/24 08:32 Eos # (Auto) 0.1 10^3/uL (0.0-0.8) 10/14/24 08:32 Baso # (Auto) 0.1 10^3/uL (0.0-0.1) 10/14/24 08:32 Nucleated RBC % (auto) 0 % 10/14/24 08:32 Nucleated RBCs # 0.0 /100WBC 10/14/24 08:32 ESR 9 mm/hr (0-15) 10/14/24 08:32 Sodium 131 mmol/L (136-145) L 10/14/24 08:32 Potassium 3.0 mmol/L (3.5-5.1) L 10/14/24 08:32 Chloride 97 mmol/L (98-107) L 10/14/24 08:32 Carbon Dioxide 20 mmol/L (22-29) L 10/14/24 08:32 Anion Gap 17.0 (5-19) 10/14/24 08:32 BUN 2 mg/dL (6-20) L 10/14/24 08:32 Creatinine 0.3 mg/dL (0.5-0.9) L 10/14/24 08:32 GFR Calculation 241.7 mL/min (90-130) H 10/14/24 08:32 Glucose 108 mg/dL (65-115) 10/14/24 08:32 Calculated Osmolality 269 mOsm/kg (285-295) L 10/14/24 08:32 Calcium 8.4 mg/dL (8.5-10.5) L 10/14/24 08:32 Total Bilirubin 0.6 mg/dL (0.15-1.2) 10/14/24 08:32 AST 19 U/L (0-32) 10/14/24 08:32 ALT 9 U/L (0-33) 10/14/24 08:32 Alkaline Phosphatase 95 U/L (35-105) 10/14/24 08:32 C-Reactive Protein 3.0 mg/L (0.0-4.9) 10/14/24 08:32 Total Protein 6.6 g/dL (6.6-8.7) 10/14/24 08:32 Albumin 3.2 g/dL (3.5-5.2) L 10/14/24 08:32 Globulin 3.4 g/dL (1.3-4.6) 10/14/24 08:32 No radiology studies performed this visit Discharge Plan Discharge Patient Disposition: Admitted As Inpatient Admit Provider: Nilson Carter 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
[2024-10-14 09:10] LABS: Erythrocyte Sedimentation Rate 9 mm/hr (0-15)
--- NOTE | 2024-10-14 09:32 | ECG_ITS ---
[facility] Test Date: 2024-10-14 Pat Name: Radha Shabazz Department: Room: Gender: Female Rail Technician: : 1980 Requested By: Yevgeniy Barrow Order Number: [id number] Reading MD: RYLEY SCHWAB Measurements Intervals [place] Rate: 96 P: 134 PA: 137 QRS: 130 QRSD: 75 T: 110 QT: 393 QTc: 497 Interpretive Statements SINUS RHYTHM ARM LEADS REVERSED [INVERTED P AND QRS IN I] Compared to ECG 09/04/2024 13:56:27 Sinus tachycardia no longer present Myocardial infarct finding no longer present Electronically Signed On 10-15-2024 19:25:43 HAND COREMAKER by RYLEY SCHWAB [email or web address]
[2024-10-14] MEDS: ketorolac 30 mg/mL INJ IVP (10:40)
[2024-10-14] MEDS: nicotine 21 mg Patch 1 PATCH TRANSDERMA (12:08)
--- NOTE | 2024-10-14 12:41 | PM.HP ---
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 However, at home she states over the last week and especially over the last 72 hours her weakness and sensory loss is worsened especially in her lower extremities, she was previously able to transfer to and from the wheelchair by herself, but here recently is not able to do that. She continues to being bothered by paresthesias and pain. She has been feeling anxious. In terms of vision changes states that she has had overall some more difficulty seeing up close as opposed to far, denies other noticeable changes. She has not had trouble breathing, has not lost control of bladder or bowel. She does report occasional muscle cramps. She finds it very difficult managing things at home by herself. Review of Systems Const: Denies: fever(s), chills, body aches or malaise ENMT: Denies: throat pain, oral sores or ear or mastoid pain Card: Denies: chest pain, edema, pre-syncope or dyspnea on exertion Resp: Denies: dyspnea, productive cough, change in phlegm color or hemoptysis GI: Denies: abdominal pain, nausea, vomiting, diarrhea, constipation, hematochezia or melena : Denies: flank pain, urinary frequency or hematuria Musc: Reports: extremity pain; Denies: joint swelling or joint redness Skin/Breast: Denies: rash Neuro: Reports: numbness in extremities, weakness in extremities, sensory changes and difficulty walking Psych: Reports: anxiety Medications/Allergies Home Medications Medication Instructions Recorded Confirmed Last Taken Type cyclobenzaprine 5 mg tablet 5 mg PO TID PRN muscle spasm 30 09/13/24 10/14/24 Unknown Rx days #30 tabs diclofenac potassium 50 mg tablet 50 mg PO TID PRN Pain 10/14/24 10/14/24 Unknown History hydroxyzine HCl 50 mg tablet 50 mg PO TID PRN Anxiety 10/14/24 10/14/24 Unknown History Allergies Allergy/AdvReac Type Severity Reaction Status Date / Time Penicillins Allergy ALGY-Rash Verified 10/14/24 08:22 shellfish derived Allergy Unknown Verified 10/14/24 08:22 PFSH Acute PFSH: Medical History Other psychoactive substance abuse, in remission Biliary colic Surgical History History of tubal ligation Family History Grandmother Breast cancer maternal Colon cancer maternal Hypercholesteremia maternal Hypertension maternal Mother Uterine cancer Grandfather Hypercholesteremia Hypertension maternal Denies family history of Ovarian cancer Diabetes mellitus type 1 Diabetes mellitus, type 2 Heart disease Thyroid disease Stroke Social History Smoking and tobacco/nicotine status: current every day tobacco/nicotine user Vitals/I&O/Wt Last Vital Signs Temp 98.0 F 10/14/24 08:11 Pulse 101 H 10/14/24 12:38 Resp 17 10/14/24 08:11 BP 135/77 10/14/24 12:38 Pulse Ox 97 10/14/24 12:38 O2 Del Method Room Air 10/14/24 11:14 Weight last 48 hrs Weight 57.606 kg Physical Exam Const: COMMON NORMALS: patient oriented x3 and alert GENERAL APPEARANCE: cooperative ORIENTATION/CONSCIOUSNESS: Yes awake HENMT: COMMON NORMALS: oropharynx normal Neck/C-Spine: COMMON NORMALS: no JVD Resp: COMMON NORMALS: normal respiratory effort and clear to auscultation bilaterally AUSCULTATION: clear to auscultation bilaterally Cardio: COMMON NORMALS: no JVD, regular rhythm, S1 normal heart sound present, S2 normal heart sound present and No murmurs present (Cardio) RHYTHM: regular rhythm HEART SOUNDS: S1 normal heart sound present and S2 normal heart sound present GI: COMMON NORMALS: Normal to inspection, nondistended, normoactive bowel sounds present, Soft to palpation and non-tender PALPATION: Yes Soft to palpation Extremity: COMMON NORMALS: no joint enlargement and no pedal edema Neuro: COMMON NORMALS: patient oriented x3 SENSORIUM/ORIENTATION: Yes alert OTHER: She is awake and alert, interactive, no facial droop, no dysarthria or aphasia, visual andres are full to confrontation. No visual extinction. Paresthesia, worse on the left compared to the right. Lower extremity dysesthesia/pain. Worse sensory loss of lower extremities, with sensory loss to light touch. Minimal weakness noted in bilateral upper extremities. 2/5 power BLLE, slightly worse on the L. Psych: MOOD & AFFECT: Yes anxious Skin: COMMON NORMALS: no rashes or lesions noted GENERAL SKIN EXAM: no rashes or lesions noted Data 10/14/24 08:32 10/14/24 08:32 A&P Assessment and plan (1) AIDP (acute inflammatory demyelinating polyneuropathy): Reviewed vitals, CBC, CMP, EKG, discharge summary from recent admission, CSF studies, MRI study cervical, thoracic, lumbar spine, reviewed ED provider note, discussed with ED provider. She is returning with worsened weakness in lower extremities made again difficult her to walk. Has had persistent paresthesias, pain. Does report a few muscle cramps. Suspected relapse of AIDP versus possibly another condition. Pending neurology reassessment. Per ED provider discussion with neurology restart IVIG given response to treatment last time. Discussed with pharmacy, she weighs 57.6 kg, 0.4 g/kg/day for 5 days would give her dose of just about 23 g daily. She has tolerated the medication last time. With medication coming 10 g increments will alternate 30 and 20 g dosing starting with 30 g to achieve dose closest to recommended for her weight. Monitor for risk of anaphylaxis, other allergic/transfusion reaction. Monitor daily FVC, NIF with risk of progression to respiratory failure. Aspiration precautions, fall precautions. PT, OT. Neurology reassessment appreciated to further guide therapy and consideration of differential diagnosis. She has been taking Xanax for anxiety, continue. Hydrocodone, acetaminophen for pain. Plan Smoking: Encourage cessation. Had a nicotine replacement as needed. 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 Diagnoses AIDP (acute inflammatory demyelinating polyneuropathy) G61.0
[2024-10-14] MEDS: ALPRAZolam 0.5 mg Tablet PO ×2 (13:56→21:10)
[2024-10-14] MEDS: HYDROcodone-acetaminophen 5-325 mg Tablet 1 TAB PO (13:56)
[2024-10-14] MEDS: enoxaparin 40 mg/0.4 mL Syringe SUBCUT (13:56)
[2024-10-14] MEDS: potassium chloride ER 20 mEq Tablet 40 MEQ PO (13:56)
[2024-10-14] MEDS: IMMUNE GLOBULIN IV (14:13)
--- NOTE | 2024-10-14 14:51 | PC.NURSE ---
This nurse called the pharmacist for help to titrate the immunoglobulin order. Pharmacist calculated the titration rounding weight to 60 (57.606). Dose calculation was 72 per pharmacist. Double after 30 minutes which is 144 then double again after 30 min which is 288 which pharmacist stated was the max. Immunoglobulin started at 72 ml/hr (1.2x60 which is protocol).
--- NOTE | 2024-10-14 15:02 | PC.NURSE ---
Patient states there is a bag of change in purse. Refuses to allow this nurse to place purse in pixis. This nurse stated to patient she was responsible for purse and anything in purse since patient wanted purse to stay in the room. Patient verbalized understanding.
--- NOTE | 2024-10-14 15:54 | PM.CONSULT ---
Providers/Reason For Consult Consulting Physician/Specialty*: Dr. Yevgeniy Dwyer Reason for Consult*: AIDP worse Attending Physician: Nilson Catrer Primary Care Provider: Raya Milan History of Present Illness History of Present Illness Radha Shabazz is a 43 year old female who presents with bilateral leg weakness. She presented here to the emergency department 08/05/2024 with acute cholecystitis and had surgery 08/18/2024 after experiencing septic shock and life-threatening hypokalemia. She had to have fluid resuscitation and treatment of sepsis before she could have surgery. She had persistent metabolic acidosis but she insisted on discharge. She return 09/01/2024 feeling like she could not move her hands or feet. Nerve conduction studies performed in the upper extremities but axonal changes. Her reflexes were absent. Dr. Melissa managed her care. She had extensive testing for atypical problems. Of course she had MRI scans of her entire spinal axis and he consult to Dr. Gonzalez because of a disc bulge at C5-6. Finally Dr. Mendez came on service and consulted Dr. Persaud on 09/04/2024. By the time she was seen by Dr. Persaud she had received IVIG for several days and had regained the ability to lift her arms and legs off the bed but she still had generalized weakness. Spinal fluid showed elevated protein (46) with a normal white count. Dr. Persaud recommended IVIG 400 mg/kg/day for 7 days. She was transferred to rehab at [facility] for 2 weeks and then discharged home. She came back today because she cannot take care of herself at home. Her leg weakness is worse. She is complaining of diffuse pain. I talked to Dr. Dwyer earlier and recommended hospitalization and that she probably needs to go on IVIG at a chronic dosage which would be 5 days of 400 mg/kg (total 2 g/kg) followed by 1 g/kg every 3 weeks. I came to see her in ER but she was already with Dr. Carter. Laboratory exam 09/04/2024 no white blood cells, no red blood cells, protein 46, glucose 57. CSF IgG 8.1 elevated. No abnormal bands. Lyme CSF negative. VDRL negative. Many extra tests were included including negative MOG antibodies. GQ 1 B negative. LALY profile negative. Complement levels low. Hemoglobin ranging from 8.6-9.3 during hospitalization now 12.7. MCV has normalized. Serum B12 not done. Today potassium was low at 3. BUN/creatinine have been normal. Albumin is up to 3.2 which is an improvement and calcium is proportional. She moved here with her several years ago and he abruptly of multisystem failure. She has 3 children still at home ages 16, 15 and 14 and her best friend lives here. She has good support. At worst she had severe pain in her legs and hands that got better after IVIG. At best she regained the ability to walk behind the wheel chair. She was doing much better by the time she completed 2 weeks of physical therapy at [facility] but she has experienced progressive weakness over the last several weeks. She is experiencing severe tingling paresthesias in the legs extending up to her pubis. She still has paresthesias in her hands but not her arms. Today she was not able to stand up or make a transfer and asked to be taken to the hospital. She has not had nerve conduction studies of the legs performed at [facility] or as an outpatient. She is not scheduled to see Dr. Persaud until the end of December. She is lost more than 40 pounds since she moved here a couple of years ago. Review of Systems Const: Reports: body aches, change in weight, fatigue and malaise; Denies: fever(s) or chills Eyes: Denies: change in vision or blurry vision ENMT: Denies: throat pain, oral sores or ear or mastoid pain Card: Reports: edema (Better); Denies: chest pain, pre-syncope or dyspnea on exertion Resp: Denies: dyspnea, productive cough, change in phlegm color or hemoptysis GI: Denies: abdominal pain, nausea (Resolved), vomiting, diarrhea or constipation : Denies: flank pain, urinary frequency or hematuria Musc: Reports: extremity pain; Denies: joint swelling or joint redness Skin/Breast: Denies: rash Neuro: Reports: numbness in extremities, weakness in extremities, sensory changes, lack of coordination and difficulty walking Psych: Reports: anxiety and depression Medications/Allergies Home Medications Medication Instructions Recorded Confirmed Last Taken Type cyclobenzaprine 5 mg tablet 5 mg PO TID PRN muscle spasm 30 09/13/24 10/14/24 Unknown Rx days #30 tabs diclofenac potassium 50 mg tablet 50 mg PO TID PRN Pain 10/14/24 10/14/24 Unknown History hydroxyzine HCl 50 mg tablet 50 mg PO TID PRN Anxiety 10/14/24 10/14/24 Unknown History Allergies Allergy/AdvReac Type Severity Reaction Status Date / Time Penicillins Allergy ALGY-Rash Verified 10/14/24 08:22 shellfish derived Allergy Unknown Verified 10/14/24 08:22 Current Medications Generic Name Dose Route Start Last Admin Trade Name Freq PRN Reason Stop Dose Admin Hydrocodone Bitart/Acetaminophen 1 tab 10/14/24 12:53 10/14/24 13:56 Hydrocodone-Acetaminophen 5-325 Mg Tablet PO 1 tab Q4H PRN Administration MODERATE PAIN Alprazolam 0.5 mg 10/14/24 12:53 10/14/24 13:56 Alprazolam 0.5 Mg Tablet PO 0.5 mg TID PRN Administration ANXIETY Enoxaparin Sodium 40 mg 10/14/24 13:15 10/14/24 13:56 Enoxaparin 40 Mg/0.4 Ml Syringe SUBCUT 40 mg Q24H AUREA Administration PFSH Acute PFSH: Medical History Other psychoactive substance abuse, in remission Biliary colic Surgical History History of tubal ligation Family History Grandmother Breast cancer maternal Colon cancer maternal Hypercholesteremia maternal Hypertension maternal Mother Uterine cancer Grandfather Hypercholesteremia Hypertension maternal Denies family history of Ovarian cancer Diabetes mellitus type 1 Diabetes mellitus, type 2 Heart disease Thyroid disease Stroke Social History Smoking and tobacco/nicotine status: current every day tobacco/nicotine user Vitals/I&O/Wt Last Vital Signs Temp 98.0 F 10/14/24 14:00 Pulse 93 10/14/24 14:00 Resp 18 10/14/24 14:00 BP 131/84 10/14/24 14:00 Pulse Ox 98 10/14/24 14:00 O2 Del Method Room Air 10/14/24 14:00 Weight last 48 hrs Weight 127 lb Weight 127 lb Physical Exam Narrative: GENERAL: The patient was thin with a depressed and uncomfortable appearance MENTAL STATUS: Orientation was full to 10 of 10 questions of orientation. Speech was fluent without word hesitation. No difficulty following a complex command. The affect was agitated and complaining of severe pain to the point that she is reluctant to move. CRANIAL NERVES: Visual andres were full to confrontation, direct and consensual. Extraocular movements were full without nystagmus. PERRLA. Face was symmetric at rest and with grimace. Facial sensation was intact in all three distributions of the fifth cranial nerve bilaterally to touch. Tongue and palate were midline at rest and with protrusion of the tongue and elevation of the palate. Shoulders were symmetric at rest and with shoulder shrug. MOTOR: She is reluctant to move any of the muscles of her legs. She has almost wooden appearance in the legs and cannot bear to be touched. In the upper extremities she is less restricted but somewhat uncomfortable in the upper extremities as well SENSATION: She cannot feel touch anywhere in the legs. Pinprick is pathologic from the hips down COORDINATION: No specific cerebellar signs. DEEP TENDON REFLEXES: Absent throughout with possible exception of adductor reflex left thigh. GAIT: Unable to tolerate weightbearing CARDIOVASCULAR: The heart sounds were normal without murmur or gallop. Regular rate and rhythm. Data 10/14/24 08:32 10/14/24 08:32 A&P Assessment and plan (1) AIDP (acute inflammatory demyelinating polyneuropathy): 43-year-old woman who presented with bilateral lower extremity weakness and numbness following a bout of severe sepsis from acute cholecystitis resolved after cholecystectomy on 08/18/24 but followed by onset of weakness that was present even at the time of discharge from what the patient describes. All of her abdominal complaints resolved after cholecystectomy but she says that the weakness in her legs followed soon after. CT scans of the cervical, lumbar and thoracic spine showed no acute findings on 09/01/2024. MRI of the cervical spine shows indentation of the thecal sac by a disc bulge at C5-6 that is not of any clinical significance to the patient's current problem. I am not sure why she had MRI brain on 09/03/2024 but that study was also negative. Apparently at that time she had some altered mental status and there is also discussion of bifacial weakness which the patient does not remember. She is having severe sensory disturbance with paresthesias consistent with the motor and sensory neuropathy form. She presented with sepsis which was presumably the trigger. Surgical treatment is not a trigger for AIDP. She now presents with treatment related fluctuation which happens in 10% of patients within 10 to 60 days after treatment. This is of concern for CIDP but based on the time course would still be considered AIDP with treatment related fluctuation. She needs to have nerve conduction studies of both lower extremities and that can be done as an outpatient after this hospitalization. She had significant improvement following a prolonged IVIG treatment for 7 days followed by gradual worsening over the last week. It is appropriate to treat her with IVIG and plan for a more extensive rehabilitation plan after hospital discharge. There is no advantage to treating with Plex. Pain control with gabapentin starting at 400 mg 3 times a day and ramping up quickly to try to get better pain control. Similarly, Cymbalta may provide some pain relief for her paresthesias which limit her ability to use her muscles at this time. Consult Attestations Medical Necessity Statement: Progressive weakness suggesting reactivation or worsening of AIDP Time Spent in Patient Care: 60 minutes Coding Level of Care Code 26017 Diagnoses AIDP (acute inflammatory demyelinating polyneuropathy) G61.0
--- NOTE | 2024-10-14 23:16 | PC.NURSE ---
Ingrid FANG taking care of patient until approximately 22:30 at which point this nurse assumed care.
[2024-10-14] MEDS: gabapentin 300 mg Capsule PO (23:48)
[2024-10-15] VITALS (11 sets, daily range): BP systolic 142–156; BP diastolic 84–99; PULSE 88–120; RESP 15–19; TEMP 36.4–36.7; O2SAT 95–98
[2024-10-15 04:59] LABS: Basophils % 0.7 %; Eosinophils # 0.1 10^3/uL (0.0-0.8); Lymphocytes # 2.1 10^3/uL (0.8-4.8); Lymphocytes % 39.6 %; Mean Corpuscular HGB Conc 32.4 g/dL (30-55); Mean Corpuscular Hemoglobin 29.7 pg (27-33); Mean Corpuscular Volume 91.6 fl (85-98); Mean Platelet Volume 10.9 fL (7.4-10.4); Monocytes # 0.6 10^3/uL (0.2-0.9); Monocytes % 10.9 %; Neutrophils # 2.49 10^3/uL (1.8-7.7); Neutrophils % 46.2 %; Nucleated Red Blood Cells % 0 %; Platelet Count 252 10^3/cmm (157-399); Red Blood Count 4.04 10^6/uL (3.85-5.65); Red Cell Distribution Width 14.6 % (12.1-15.1)
[2024-10-15 05:13] LABS: Blood Urea Nitrogen 3 mg/dL (6-20); Calcium 8.3 mg/dL (8.5-10.5); Carbon Dioxide 22 mmol/L (22-29); Chloride 103 mmol/L (98-107); Creatinine Clr Calc Pharmacy 214.6004; Glomerular Filtration Rate 241.7 mL/min (90-130); Glucose 94 mg/dL (65-115); Magnesium 1.4 mg/dL (1.7-2.3); Osmolality Calculated 278 mOsm/kg (285-295); Sodium 136 mmol/L (136-145)
[2024-10-15] MEDS: ALPRAZolam 0.5 mg Tablet PO ×2 (08:48→17:56)
--- NOTE | 2024-10-15 09:42 | PC.CHAP ---
Pastoral Care Encounter/Spiritual Assessment Type of Contact [] Declined driver license technician visit [] Patient/Family/Request visit [] Outpatient visit [] Follow-up visit [] Physician referral [] Code/Alert [x] Routine visit [] Staff referral [] Actively dying [] Patient sleeping [] Family support [] [] Out of room [] Palliative care [] [] Receiving care in room [] Pre-surgical visit [] Trauma [] Long length of stay [] ICU visit [] Other: Relational/Emotional Strength [] Patient feels connected with others/family/visitors/staff [] Distress [] Loneliness/isolation [] Abandonment Spirituality of Patient [] Person of Karuna [] Attends Druze of their Karuna [] Believes in Prayer [] Reads Bible or Yazdanism materials [] There are Spiritual issues to be addressed Odd Shoe Examiner Interventions [] Prayer [] Active listening [] Non-anxious presence [] Spiritual/emotional support [] Crisis/trauma care [] Spiritual counseling [] Bereavement support [] Provided bereavement packet [] Provided Bible/devotional materials [] Provided toy/stuffed animal, coloring book to patient or family member [] Provided Communion [] Anointing/[place] [] Salvation [] Completed spiritual assessment [] Other: Impact on Illness or Injury [] Angry [] Fearful [] Anxious [] Often cries [] Exhaustion [] Unable to work [] Unable to attend temple [] Unable to walk/stand [] Unable to read [] Unable to drive [] Unable to eat/drink [] Unable to sleep [] Unable to be with family [] Patient intubated [] Other: Summary check with nurse Time spent with patient
[2024-10-15] MEDS: metoprolol tartrate 25 mg Tablet PO ×2 (11:16→19:49)
[2024-10-15] MEDS: potassium chloride ER 20 mEq Tablet 40 MEQ PO ×3 (11:16→14:42)
[2024-10-15] MEDS: oxyCODONE 5 mg IR Tab/Cap PO ×2 (11:17→17:55)
[2024-10-15 12:14] LABS: Vitamin B12 238 pg/mL (232-1245)
[2024-10-15] MEDS: PARoxetine 20 mg Tablet 10 MG PO (12:35)
[2024-10-15] MEDS: enoxaparin 40 mg/0.4 mL Syringe SUBCUT (12:39)
--- NOTE | 2024-10-15 14:41 | P.PN_ITS ---
Subjective 2 Subjective: Hospital course, labs appreciated. Patient seen sitting up in bed. She states she was discharged from [facility] few weeks ago. At maximum she was able to walk with help on the treadmill for 4 steps, was able to feed herself, bathe and dress herself by health but few weeks ago while was trying to pick her up from the floor he hurt himself and since then patient has been needing to take care of herself more than usual and since then she started feeling weaker. Vitals/I&O/Wt Last Vital Signs Temp 98.1 F 10/15/24 11:58 Pulse 103 H 10/15/24 11:58 Resp 17 10/15/24 11:58 BP 156/99 10/15/24 11:58 Pulse Ox 96 10/15/24 11:58 O2 Del Method Room Air 10/15/24 11:58 10/14/24 10/15/24 10/15/24 22:59 06:59 14:59 Intake Total 240 / 240 480 / 480 Output Total 150 / 150 Balance 240 / 240 330 / 330 Weight last 48 hrs Weight 59.965 kg Weight 57.606 kg Weight 57.606 kg Physical Exam 2 Const: COMMON NORMALS: patient oriented x3 and alert GENERAL APPEARANCE: c ooperative ORIENTATION/CONSCIOUSNESS: Yes awake HENMT: COMMON NORMALS: oropharynx normal Neck/C-Spine: COMMON NORMALS: no JVD Resp: COMMON NORMALS: normal respiratory effort and clear to auscultation bilaterally AUSCULTATION: clear to auscultation bilaterally Cardio: COMMON NORMALS: no JVD, regular rhythm, S1 normal heart sound present, S2 normal heart sound present and No murmurs present (Cardio) RHYTHM: regular rhythm HEART SOUNDS: S1 normal heart sound present and S2 normal heart sound present GI: COMMON NORMALS: Normal to inspection, nondistended, normoactive bowel sounds present, Soft to palpation and non-tender PALPATION: Yes Soft to palpation Extremity: COMMON NORMALS: no joint enlargement and no pedal edema Neuro: COMMON NORMALS: patient oriented x3 SENSORIUM/ORIENTATION: Yes alert OTHER: She is awake and alert, interactive, no facial droop, no dysarthria or aphasia, visual andres are full to confrontation. No visual extinction. Paresthesia, worse on the left compared to the right. Lower extremity dysesthesia/pain. Worse sensory loss of lower extremities, with sensory loss to light touch. Minimal weakness noted in bilateral upper extremities. 2/5 power BLLE, slightly worse on the L. Psych: MOOD & AFFECT: Yes anxious Skin: COMMON NORMALS: no rashes or lesions noted GENERAL SKIN EXAM: no rashes or lesions noted Data 10/15/24 04:18 10/15/24 04:18 A&P Assessment and plan (1) AIDP (acute inflammatory demyelinating polyneuropathy): Appreciate neurology recommendations. Extensive workup on previous admission including CSF studies, MRI spine. Laboratory exam 09/04/2024 no white blood cells, no red blood cells, protein 46, glucose 57. CSF IgG 8.1 elevated. No abnormal bands. Lyme CSF negative. VDRL negative. Many extra tests were included including negative MOG antibodies. GQ 1 B negative. LALY profile negative. Complement levels low. Plan to continue IVIG 400 mg/kg per body weight daily for next 5 days. Last dose on 10/18. PT/OT. NIF steady. Aspiration precaution. Fall precaution. Start on gabapentin 200 mg 3 times a day. Restart pain medications from previous admission add oxycodone IR at 10 mg twice daily, ER at 5 mg every 6 hours as needed. Plan Anxiety: Continue with Xanax 0.5 3 times daily as needed. Add Cymbalta 20 mg twice daily. Which will also help with nerve pain. Smoking: Encourage cessation. Had a nicotine replacement as needed. Hypokalemia: Potassium down to 2.9. Replace 40 mg every hour for 3 doses. Replace magnesium with 1 g IV. Repeat BMP in afternoon. Target magnesium around 2, potassium around 4. Regular diet Famotidine for PUD prophylaxis Lovenox for DVT prophylaxis Full code Discharge plan: Patient will most likely require extensive rehab for further rehab for improvement of AIDP. Patient is not able to take care of her ADLs at home. Case management alerted. Attestations 2 Medical Necessity Statement*: Requires further hospitalization for management of recurrence of AIDP as patient requires IVIG treatment was safe discharge planning is sought. Diagnoses AIDP (acute inflammatory demyelinating polyneuropathy) G61.0
[2024-10-15] MEDS: gabapentin 100 mg Capsule 200 MG PO ×2 (14:43→19:49)
[2024-10-15] MEDS: IMMUNE GLOBULIN IV (14:50)
[2024-10-15 15:40] LABS: Anion Gap 14.4 (5-19); Blood Urea Nitrogen 4 mg/dL (6-20); Calcium 8.4 mg/dL (8.5-10.5); Carbon Dioxide 22 mmol/L (22-29); Chloride 103 mmol/L (98-107); Creatinine Clr Calc Pharmacy 214.6004; Glomerular Filtration Rate 241.7 mL/min (90-130); Glucose 111 mg/dL (65-115); Osmolality Calculated 278 mOsm/kg (285-295); Potassium 4.4 mmol/L (3.5-5.1); Sodium 135 mmol/L (136-145)
[2024-10-15] MEDS: famotidine 20 mg Tablet PO (17:45)
[2024-10-15] MEDS: oxyCODONE 10 mg ER (12 HR) Tablet PO (17:45)
[2024-10-15] MEDS: duloxetine 20 mg Capsule PO (17:45)
--- NOTE | 2024-10-15 19:37 | PC.NURSE ---
Shift summary: Pt rested in bed throughout the shift. She is A&O x 4. Her arms are weak bilat with poor provider engagement executive strength. Her left leg is stronger than her right leg. She can lift her left leg off the bed. Bilat foot drop noted. She complains of tingling and burning in her feet mostly sometimes it is occurring in her hands. She stated the pain med and Gabapentin last night really helped control the pain and she was able to sleep through the night afterwards. She was started on antidepressants and gabapentin scheduled today. Her pain med was changed to OXY IR PRN and OXY ER scheduled, from Dilaudid IVP PRN. IVIG admin today , 200 ml. She had used the bedpan several times, bhavani urine noted.
[2024-10-16] VITALS (10 sets, daily range): BP systolic 136–152; BP diastolic 88–104; PULSE 93–133; RESP 16–19; TEMP 36.4–36.8; O2SAT 65–98; BMI 22.1
[2024-10-16] MEDS: ALPRAZolam 0.5 mg Tablet PO ×2 (00:01→15:58)
[2024-10-16] MEDS: oxyCODONE 5 mg IR Tab/Cap PO ×4 (00:01→22:19)
[2024-10-16 06:02] LABS: Basophils % 0.6 %; Eosinophils # 0.1 10^3/uL (0.0-0.8); Eosinophils % 2.7 %; Hematocrit 36.8 % (36-47); Lymphocytes # 1.6 10^3/uL (0.8-4.8); Lymphocytes % 32.8 %; Mean Corpuscular HGB Conc 32.9 g/dL (30-55); Mean Corpuscular Hemoglobin 29.5 pg (27-33); Mean Corpuscular Volume 89.8 fl (85-98); Mean Platelet Volume 11.2 fL (7.4-10.4); Monocytes # 0.6 10^3/uL (0.2-0.9); Monocytes % 12.3 %; Neutrophils # 2.51 10^3/uL (1.8-7.7); Neutrophils % 51.4 %; Nucleated Red Blood Cells % 0 %; Platelet Count 246 10^3/cmm (157-399); Red Cell Distribution Width 14.8 % (12.1-15.1); White Blood Count 4.88 10^3/uL (3.29-11.43)
[2024-10-16 06:21] LABS: Alanine Aminotransferase 12 U/L (0-33); Albumin Level 2.8 g/dL (3.5-5.2); Alkaline Phosphatase 73 U/L (35-105); Anion Gap 13.1 (5-19); Aspartate Amino Transferase 41 U/L (0-32); Blood Urea Nitrogen 4 mg/dL (6-20); Calcium 8.3 mg/dL (8.5-10.5); Carbon Dioxide 22 mmol/L (22-29); Chloride 102 mmol/L (98-107); Creatinine Clr Calc Pharmacy 212.2703; Globulin 4.1 g/dL (1.3-4.6); Glomerular Filtration Rate 241.7 mL/min (90-130); Glucose 84 mg/dL (65-115); Osmolality Calculated 272 mOsm/kg (285-295); Potassium 4.1 mmol/L (3.5-5.1); Sodium 133 mmol/L (136-145); Total Bilirubin 0.5 mg/dL (0.15-1.2); Total Protein 6.9 g/dL (6.6-8.7)
[2024-10-16 06:43] LABS: Magnesium 1.3 mg/dL (1.7-2.3)
[2024-10-16 07:00] LABS: Folate Level > 20.0 ng/mL (4.8-37.3)
[2024-10-16] MEDS: gabapentin 100 mg Capsule 200 MG PO ×3 (09:40→20:49)
[2024-10-16] MEDS: famotidine 20 mg Tablet PO ×2 (09:40→17:39)
[2024-10-16] MEDS: oxyCODONE 10 mg ER (12 HR) Tablet PO ×2 (09:40→17:39)
[2024-10-16] MEDS: duloxetine 20 mg Capsule PO ×2 (09:40→17:41)
[2024-10-16] MEDS: metoprolol tartrate 25 mg Tablet PO ×2 (09:40→20:49)
[2024-10-16] MEDS: enoxaparin 40 mg/0.4 mL Syringe SUBCUT (13:47)
--- NOTE | 2024-10-16 13:57 | P.PN_ITS ---
Subjective 2 Subjective: No acute events overnight. Patient worked well with physical therapy today. Laying comfortably in bed. Denies any nausea vomiting, headache. Continues to remain on room air Vitals/I&O/Wt Last Vital Signs Temp 97.6 F 10/16/24 11:49 Pulse 94 10/16/24 11:49 Resp 17 10/16/24 11:49 BP 136/92 10/16/24 11:49 Pulse Ox 96 10/16/24 11:49 O2 Del Method Room Air 10/16/24 11:49 10/15/24 10/16/24 10/16/24 22:59 06:59 14:59 Intake Total 620.000 / 1100.000 500 / 1600.000 240 / 240 Output Total 175 / 325 Balance 445.000 / 775.000 500 / 1275.000 240 / 240 Weight last 48 hrs Weight 58.423 kg Weight 58.423 kg Weight 59.965 kg Physical Exam 2 Const: COMMON NORMALS: patient oriented x3 and alert GENERAL APPEARANCE: c ooperative ORIENTATION/CONSCIOUSNESS: Yes awake HENMT: COMMON NORMALS: oropharynx normal Neck/C-Spine: COMMON NORMALS: no JVD Resp: COMMON NORMALS: normal respiratory effort and clear to auscultation bilaterally AUSCULTATION: clear to auscultation bilaterally Cardio: COMMON NORMALS: no JVD, regular rhythm, S1 normal heart sound present, S2 normal heart sound present and No murmurs present (Cardio) RHYTHM: regular rhythm HEART SOUNDS: S1 normal heart sound present and S2 normal heart sound present GI: COMMON NORMALS: Normal to inspection, nondistended, normoactive bowel sounds present, Soft to palpation and non-tender PALPATION: Yes Soft to palpation Extremity: COMMON NORMALS: no joint enlargement and no pedal edema Neuro: COMMON NORMALS: patient oriented x3 SENSORIUM/ORIENTATION: Yes alert OTHER: She is awake and alert, interactive, no facial droop, no dysarthria or aphasia, visual andres are full to confrontation. No visual extinction. Paresthesia, worse on the left compared to the right. Lower extremity dysesthesia/pain. Worse sensory loss of lower extremities, with sensory loss to light touch. Minimal weakness noted in bilateral upper extremities. 2/5 power BLLE, slightly worse on the L. Psych: MOOD & AFFECT: Yes anxious Skin: COMMON NORMALS: no rashes or lesions noted GENERAL SKIN EXAM: no rashes or lesions noted Data 10/16/24 05:11 10/16/24 05:11 A&P Assessment and plan (1) AIDP (acute inflammatory demyelinating polyneuropathy): Appreciate neurology recommendations. Extensive workup on previous admission including CSF studies, MRI spine. Laboratory exam 09/04/2024 no white blood cells, no red blood cells, protein 46, glucose 57. CSF IgG 8.1 elevated. No abnormal bands. Lyme CSF negative. VDRL negative. Many extra tests were included including negative MOG antibodies. GQ 1 B negative. LALY profile negative. Complement levels low. Plan to continue IVIG 400 mg/kg per body weight daily for next 5 days. Last dose on 10/18. PT/OT. NIF steady. Aspiration precaution. Fall precaution. Start on gabapentin 200 mg 3 times a day. Restart pain medications from previous admission add oxycodone IR at 10 mg twice daily, ER at 5 mg every 6 hours as needed. (2) Hypokalemia: (3) Hypomagnesemia: Plan Anxiety: Continue with Xanax 0.5 3 times daily as needed. Add Cymbalta 20 mg twice daily. Which will also help with nerve pain. Smoking: Encourage cessation. Had a nicotine replacement as needed. Hypokalemia: Resolved. Replete magnesium 1 g IV. Monitor daily. Regular diet Famotidine for PUD prophylaxis Lovenox for DVT prophylaxis Full code Plan for the day: Continue to monitor NIF. Today -50. Continue with aggressive physical therapy along with pain control with oxycodone ER 10 twice daily along with IR every 6 hours as needed. Patient tolerating Cymbalta well. For now we will continue with 20 mg twice daily. Will uptitrate within next 1 week. Heart rate better controlled pressure goal blood pressure less than 140/90 mg. Continue with metoprolol 25 mg twice daily. Replace magnesium. Monitor potassium and magnesium levels daily. Discharge plan: Patient will most likely require extensive rehab for further rehab for improvement of AIDP. Patient is not able to take care of her ADLs at home. Case management alerted. Unfortunately, due to financial barriers finding it difficult for patient for rehab as an outpatient. She does not want to go to SNF for further rehabitation for now. Attestations 2 Medical Necessity Statement*: Requires further hospitalization for management of AIDP as patient requires IVIG, hypomagnesemia while safe discharge planning is sought Diagnoses AIDP (acute inflammatory demyelinating polyneuropathy) G61.0 Hypokalemia E87.6 Hypomagnesemia E83.42
[2024-10-16] MEDS: magnesium sulfate premix 1 GM/100 ML PIGGYBACK IV (14:19)
[2024-10-16] MEDS: IMMUNE GLOBULIN IV (15:45)
[2024-10-17] VITALS (10 sets, daily range): BP systolic 132–152; BP diastolic 82–99; PULSE 82–116; RESP 15–18; TEMP 36.3–37; O2SAT 96–99
[2024-10-17] MEDS: ALPRAZolam 0.5 mg Tablet PO ×3 (01:07→21:00)
[2024-10-17] MEDS: oxyCODONE 5 mg IR Tab/Cap PO ×3 (04:16→21:00)
[2024-10-17 05:15] LABS: Basophils % 0.5 %; Eosinophils # 0.2 10^3/uL (0.0-0.8); Eosinophils % 3.3 %; Hematocrit 37.8 % (36-47); Lymphocytes # 1.9 10^3/uL (0.8-4.8); Lymphocytes % 30.2 %; Mean Corpuscular HGB Conc 32.8 g/dL (30-55); Mean Corpuscular Hemoglobin 30.3 pg (27-33); Mean Corpuscular Volume 92.4 fl (85-98); Mean Platelet Volume 10.7 fL (7.4-10.4); Monocytes # 0.8 10^3/uL (0.2-0.9); Monocytes % 13.1 %; Neutrophils # 3.35 10^3/uL (1.8-7.7); Neutrophils % 52.7 %; Nucleated Red Blood Cells % 0 %; Platelet Count 237 10^3/cmm (157-399); Red Blood Count 4.09 10^6/uL (3.85-5.65); Red Cell Distribution Width 14.8 % (12.1-15.1); White Blood Count 6.35 10^3/uL (3.29-11.43)
[2024-10-17 05:32] LABS: Alanine Aminotransferase 10 U/L (0-33); Albumin Level 2.8 g/dL (3.5-5.2); Alkaline Phosphatase 71 U/L (35-105); Anion Gap 12.5 (5-19); Aspartate Amino Transferase 26 U/L (0-32); Blood Urea Nitrogen 6 mg/dL (6-20); Calcium 8.7 mg/dL (8.5-10.5); Carbon Dioxide 23 mmol/L (22-29); Chloride 98 mmol/L (98-107); Globulin 4.3 g/dL (1.3-4.6); Glomerular Filtration Rate 173.4 mL/min (90-130); Glucose 100 mg/dL (65-115); Osmolality Calculated 268 mOsm/kg (285-295); Potassium 3.5 mmol/L (3.5-5.1); Sodium 130 mmol/L (136-145); Total Bilirubin 0.5 mg/dL (0.15-1.2); Total Protein 7.1 g/dL (6.6-8.7)
[2024-10-17 05:33] LABS: Magnesium 1.4 mg/dL (1.7-2.3)
[2024-10-17] MEDS: famotidine 20 mg Tablet PO ×2 (09:16→16:59)
[2024-10-17] MEDS: gabapentin 100 mg Capsule 200 MG PO ×3 (09:16→21:00)
[2024-10-17] MEDS: duloxetine 20 mg Capsule PO ×2 (09:16→16:59)
[2024-10-17] MEDS: metoprolol tartrate 25 mg Tablet PO ×2 (09:16→21:00)
[2024-10-17] MEDS: oxyCODONE 10 mg ER (12 HR) Tablet PO ×2 (09:16→17:00)
[2024-10-17] MEDS: magnesium sulfate premix 2 GM/50 ML PIGGYBACK IV (09:50)
[2024-10-17] MEDS: ondansetron 2 mg/ML SDV 2 mL 4 MG IVP (09:53)
--- NOTE | 2024-10-17 11:42 | PC.RESP ---
no nif today per
--- NOTE | 2024-10-17 13:33 | P.PN_ITS ---
Subjective 2 Subjective: No acute events overnight. Today morning patient seems and feels more tired. States she did not have a good night sleep as she was having nightmares. Denied any nausea, vomiting, headache. Hemodynamically stable and on room air. Vitals/I&O/Wt Last Vital Signs Temp 97.9 F 10/17/24 11:55 Pulse 88 10/17/24 11:55 Resp 15 10/17/24 11:55 BP 142/82 10/17/24 11:55 Pulse Ox 96 10/17/24 11:55 O2 Del Method Room Air 10/17/24 11:55 10/16/24 10/17/24 10/17/24 22:59 06:59 14:59 Intake Total 250 / 490 900 / 1390 50 / 50 Balance 250 / 490 900 / 1390 50 / 50 Weight last 48 hrs Weight 56.79 kg Weight 58.423 kg Weight 58.423 kg Physical Exam 2 Const: COMMON NORMALS: patient oriented x3 and alert GENERAL APPEARANCE: c ooperative ORIENTATION/CONSCIOUSNESS: Yes awake HENMT: COMMON NORMALS: oropharynx normal Neck/C-Spine: COMMON NORMALS: no JVD Resp: COMMON NORMALS: normal respiratory effort and clear to auscultation bilaterally AUSCULTATION: clear to auscultation bilaterally Cardio: COMMON NORMALS: no JVD, regular rhythm, S1 normal heart sound present, S2 normal heart sound present and No murmurs present (Cardio) RHYTHM: regular rhythm HEART SOUNDS: S1 normal heart sound present and S2 normal heart sound present GI: COMMON NORMALS: Normal to inspection, nondistended, normoactive bowel sounds present, Soft to palpation and non-tender PALPATION: Yes Soft to palpation Extremity: COMMON NORMALS: no joint enlargement and no pedal edema Neuro: COMMON NORMALS: patient oriented x3 SENSORIUM/ORIENTATION: Yes alert OTHER: She is awake and alert, interactive, no facial droop, no dysarthria or aphasia, visual andres are full to confrontation. No visual extinction. Paresthesia, worse on the left compared to the right. Lower extremity dysesthesia/pain. Worse sensory loss of lower extremities, with sensory loss to light touch. Minimal weakness noted in bilateral upper extremities. 2/5 power BLLE, slightly worse on the L. Psych: MOOD & AFFECT: Yes anxious Skin: COMMON NORMALS: no rashes or lesions noted GENERAL SKIN EXAM: no rashes or lesions noted Data 10/17/24 04:50 10/17/24 04:50 A&P Assessment and plan (1) AIDP (acute inflammatory demyelinating polyneuropathy): Appreciate neurology recommendations. Extensive workup on previous admission including CSF studies, MRI spine. Laboratory exam 09/04/2024 no white blood cells, no red blood cells, protein 46, glucose 57. CSF IgG 8.1 elevated. No abnormal bands. Lyme CSF negative. VDRL negative. Many extra tests were included including negative MOG antibodies. GQ 1 B negative. LALY profile negative. Complement levels low. Plan to continue IVIG 400 mg/kg per body weight daily for next 5 days. Last dose on 10/18. PT/OT. NIF steady. Aspiration precaution. Fall precaution. Start on gabapentin 200 mg 3 times a day. Restart pain medications from previous admission add oxycodone IR at 10 mg twice daily, ER at 5 mg every 6 hours as needed. (2) Hypokalemia: (3) Hypomagnesemia: Plan Anxiety: Continue with Xanax 0.5 3 times daily as needed. Add Cymbalta 20 mg twice daily. Which will also help with nerve pain. Smoking: Encourage cessation. Had a nicotine replacement as needed. Hypokalemia: Resolved. Replete magnesium 1 g IV. Monitor daily. Regular diet Famotidine for PUD prophylaxis Lovenox for DVT prophylaxis Full code Plan for the day: Continue IVIG treatment to finish a 5-day course. Pain well-controlled on current pain treatment. Continue gabapentin 20 mg 3 times daily. For now continue with Cymbalta 20 mg twice daily. Heart rate and blood pressure better controlled. Continue with metoprolol 25 mg twice daily. Replace magnesium 2 g IV. Start on oral magnesium supplementation daily. Monitor BMP and magnesium daily for now. Discharge plan: Patient will most likely require extensive rehab for further rehab for improvement of AIDP. Patient is not able to take care of her ADLs at home. Case management alerted. Unfortunately, due to financial barriers finding it difficult for patient for rehab as an outpatient. She does not want to go to SNF for further rehabitation for now. Attestations 2 Medical Necessity Statement*: Requires further hospitalization for management of AIDP while patient requires IVIG treatment, hypomagnesemia Diagnoses AIDP (acute inflammatory demyelinating polyneuropathy) G61.0 Hypokalemia E87.6 Hypomagnesemia E83.42
[2024-10-17] MEDS: enoxaparin 40 mg/0.4 mL Syringe SUBCUT (14:35)
[2024-10-17] MEDS: IMMUNE GLOBULIN IV (14:49)
[2024-10-17] MEDS: magnesium oxide 400 mg tablet PO (16:59)
[2024-10-18] VITALS (8 sets, daily range): BP systolic 128–147; BP diastolic 80–94; PULSE 88–118; RESP 15–118; TEMP 36.7–36.8; O2SAT 96–98
[2024-10-18] MEDS: oxyCODONE 5 mg IR Tab/Cap PO ×2 (03:04→14:21)
[2024-10-18 04:43] LABS: Basophils % 0.5 %; Eosinophils # 0.2 10^3/uL (0.0-0.8); Eosinophils % 2.6 %; Hematocrit 37.9 % (36-47); Lymphocytes # 1.9 10^3/uL (0.8-4.8); Mean Corpuscular HGB Conc 32.7 g/dL (30-55); Mean Corpuscular Volume 91.8 fl (85-98); Mean Platelet Volume 10.6 fL (7.4-10.4); Monocytes # 0.7 10^3/uL (0.2-0.9); Monocytes % 11.5 %; Neutrophils # 3.61 10^3/uL (1.8-7.7); Neutrophils % 56.1 %; Nucleated Red Blood Cells % 0 %; Platelet Count 249 10^3/cmm (157-399); Red Blood Count 4.13 10^6/uL (3.85-5.65); Red Cell Distribution Width 14.5 % (12.1-15.1); White Blood Count 6.44 10^3/uL (3.29-11.43)
[2024-10-18 05:06] LABS: Alanine Aminotransferase 8 U/L (0-33); Albumin Level 2.9 g/dL (3.5-5.2); Alkaline Phosphatase 69 U/L (35-105); Anion Gap 13.7 (5-19); Aspartate Amino Transferase 33 U/L (0-32); Blood Urea Nitrogen 6 mg/dL (6-20); Calcium 8.4 mg/dL (8.5-10.5); Carbon Dioxide 24 mmol/L (22-29); Chloride 100 mmol/L (98-107); Creatinine Clr Calc Pharmacy 208.5001; Globulin 4.9 g/dL (1.3-4.6); Glomerular Filtration Rate 241.7 mL/min (90-130); Glucose 130 mg/dL (65-115); Osmolality Calculated 277 mOsm/kg (285-295); Potassium 3.7 mmol/L (3.5-5.1); Sodium 134 mmol/L (136-145); Total Bilirubin 0.5 mg/dL (0.15-1.2); Total Protein 7.8 g/dL (6.6-8.7)
[2024-10-18 05:10] LABS: Magnesium 1.5 mg/dL (1.7-2.3)
[2024-10-18] MEDS: ALPRAZolam 0.5 mg Tablet PO (05:11)
[2024-10-18] MEDS: oxyCODONE 10 mg ER (12 HR) Tablet PO (09:07)
[2024-10-18] MEDS: gabapentin 100 mg Capsule 200 MG PO ×2 (09:07→14:19)
[2024-10-18] MEDS: famotidine 20 mg Tablet PO (09:08)
[2024-10-18] MEDS: metoprolol tartrate 25 mg Tablet PO (09:08)
[2024-10-18] MEDS: magnesium oxide 400 mg tablet PO (09:09)
[2024-10-18] MEDS: duloxetine 20 mg Capsule PO (09:09)
--- NOTE | 2024-10-18 12:30 | P.DS_ITS ---
Discharge Providers Date of Admission: 10/14/24 11:32 Date of Discharge: October 18, 2024 Attending Provider at Admission: Nilson Carter Attending Provider at Discharge: Adolph Marquez MD Consults: Neurology: Dr. Bettencourt Primary Care Provider: Raya Milan Diagnoses at Discharge Discharge Diagnosis (1) AIDP (acute inflammatory demyelinating polyneuropathy): Status: Acute (2) Hypokalemia: Status: Acute (3) Hypomagnesemia: Status: Acute Reason for Visit Reason for Visit: feet and hands numb tingling, losss of apptite Brief His tory: History as per HPI: 43-year-old lady recently discharged [facility] on 09/13 to [facility] after admission and treatment for extremity weakness, lower> upper, sensory loss, paresthesia, pain, with extensive workup, with incidental finding of C5-6 lateral disc bulge with mild thecal sac compression with severe left neural foraminal stenosis, not likely responsible for her symptoms with 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 However, at home she states over the last week and especially over the last 72 hours her weakness and sensory loss is worsened especially in her lower extremities, she was previously able to transfer to and from the wheelchair by herself, but here recently is not able to do that. She continues to being bothered by paresthesias and pain. She has been feeling anxious. In terms of vision changes states that she has had overall some more difficulty seeing up close as opposed to far, denies other noticeable changes. She has not had trouble breathing, has not lost control of bladder or bowel. She does report occasional muscle cramps. She finds it very difficult managing things at home by herself. Hospital Course Hospital Course Patient was admitted to the hospital further evaluation and management of worsening weakness in setting of AIDP. It is believed she has treatment-related fluctuation which can happen in 10% outpatient within 10 to 60 days of treatment. Neurology was consulted and she underwent IVIG treatment for further 5 days. During hospitalization she worked well with physical therapy. Anxiety and pain medications were adjusted. Safe discharge plan were discussed in detail with the patient and she was interested in possible placement back to acute rehab though patient was declined. Further possible transition to SNF was discussed with the patient but as per her insurance she would get placement but not physical therapy hence patient declined and decided to go home. Patient is further planning to have ongoing physical therapy as an outpatient by private payment. Patient has finished her course of IVIG treatment on 10/18 and has been discharged in hemodynamically stable condition. She is to follow-up with a primary care provider within next 1 week and with neurology team within next 1 week. Patient will most likely need further IVIG treatment every 3 weeks as per neurology. Physical Exam Const: COMMON NORMALS: patient oriented x3 and alert GENERAL APPEARANCE: cooperative ORIENTATION/CONSCIOUSNESS: Yes awake HENMT: COMMON NORMALS: oropharynx normal Neck/C-Spine: COMMON NORMALS: no JVD Resp: COMMON NORMALS: normal respiratory effort and clear to auscultation bilaterally AUSCULTATION: clear to auscultation bilaterally Cardio: COMMON NORMALS: no JVD, regular rhythm, S1 normal heart sound present, S2 normal heart sound present and No murmurs present (Cardio) RHYTHM: regular rhythm HEART SOUNDS: S1 normal heart sound present and S2 normal heart sound present GI: COMMON NORMALS: Normal to inspection, nondistended, normoactive bowel sounds present, Soft to palpation and non-tender PALPATION: Yes Soft to palpation Extremity: COMMON NORMALS: no joint enlargement and no pedal edema Neuro: COMMON NORMALS: patient oriented x3 SENSORIUM/ORIENTATION: Yes alert OTHER: She is awake and alert, interactive, no facial droop, no dysarthria or aphasia, visual andres are full to confrontation. No visual extinction. Paresthesia, worse on the left compared to the right. Lower extremity dysesthesia/pain. Worse sensory loss of lower extremities, with sensory loss to light touch. Minimal weakness noted in bilateral upper extremities. 2/5 power BLLE, slightly worse on the L. Psych: MOOD & AFFECT: Yes anxious Skin: COMMON NORMALS: no rashes or lesions noted GENERAL SKIN EXAM: no rashes or lesions noted Discharge Data Studies Completed and Pending Pending at discharge Category Date Time Status MAG [Magnesium] AM LABS Lab 10/19/24 04:00 Ordered MAG [Magnesium] AM LABS Lab 10/20/24 04:00 Ordered Laboratory Results WBC 6.44 10^3/uL (3.29-11.43) 10/18/24 04:25 RBC 4.13 10^6/uL (3.85-5.65) 10/18/24 04:25 Hgb 12.40 g/dL (11.27-16.99) 10/18/24 04:25 Hct 37.9 % (36-47) 10/18/24 04:25 MCV 91.8 fl (85-98) 10/18/24 04:25 MCH 30.0 pg (27-33) 10/18/24 04:25 MCHC 32.7 g/dL (30-55) 10/18/24 04:25 RDW 14.5 % (12.1-15.1) 10/18/24 04:25 Plt Count 249 10^3/cmm (157-399) 10/18/24 04:25 MPV 10.6 fL (7.4-10.4) H 10/18/24 04:25 Neut % (Auto) 56.1 % 10/18/24 04:25 Lymph % (Auto) 29.0 % 10/18/24 04:25 [place] % (Auto) 11.5 % 10/18/24 04:25 Eos % (Auto) 2.6 % 10/18/24 04:25 Baso % (Auto) 0.5 % 10/18/24 04:25 Neut # (Auto) 3.61 10^3/uL (1.8-7.7) 10/18/24 04:25 Lymph # (Auto) 1.9 10^3/uL (0.8-4.8) 10/18/24 04:25 [place] # (Auto) 0.7 10^3/uL (0.2-0.9) 10/18/24 04:25 Eos # (Auto) 0.2 10^3/uL (0.0-0.8) 10/18/24 04:25 Baso # (Auto) 0.0 10^3/uL (0.0-0.1) 10/18/24 04:25 Nucleated RBC % (auto) 0 % 10/18/24 04:25 Nucleated RBCs # 0.0 /100WBC 10/18/24 04:25 ESR 9 mm/hr (0-15) 10/14/24 08:32 Sodium 134 mmol/L (136-145) L 10/18/24 04:25 Potassium 3.7 mmol/L (3.5-5.1) 10/18/24 04:25 Chloride 100 mmol/L (98-107) 10/18/24 04:25 Carbon Dioxide 24 mmol/L (22-29) 10/18/24 04:25 Anion Gap 13.7 (5-19) 10/18/24 04:25 BUN 6 mg/dL (6-20) 10/18/24 04:25 Creatinine 0.3 mg/dL (0.5-0.9) L 10/18/24 04:25 GFR Calculation 241.7 mL/min (90-130) H 10/18/24 04:25 Glucose 130 mg/dL (65-115) H 10/18/24 04:25 Calculated Osmolality 277 mOsm/kg (285-295) L 10/18/24 04:25 Calcium 8.4 mg/dL (8.5-10.5) L 10/18/24 04:25 Magnesium 1.5 mg/dL (1.7-2.3) L 10/18/24 04:25 Total Bilirubin 0.5 mg/dL (0.15-1.2) 10/18/24 04:25 AST 33 U/L (0-32) H 10/18/24 04:25 ALT 8 U/L (0-33) 10/18/24 04:25 Alkaline Phosphatase 69 U/L (35-105) 10/18/24 04:25 C-Reactive Protein 3.0 mg/L (0.0-4.9) 10/14/24 08:32 Total Protein 7.8 g/dL (6.6-8.7) 10/18/24 04:25 Albumin 2.9 g/dL (3.5-5.2) L 10/18/24 04:25 Globulin 4.9 g/dL (1.3-4.6) H 10/18/24 04:25 Vitamin B12 238 pg/mL (232-1245) 10/15/24 04:18 Folate > 20.0 ng/mL (4.8-37.3) 10/16/24 05:11 Vitals Last Vital Signs Temp 98.0 F 10/18/24 11:37 Pulse 88 10/18/24 11:37 Resp 15 10/18/24 11:37 BP 147/88 10/18/24 11:37 Pulse Ox 98 11/28/24 11:37 O2 Del Method Room Air 10/18/24 11:37 Discharge Plan Discharge Patient Disposition: Home Condition: Stable Prescriptions: New magnesium oxide 400 mg (241.3 mg magnesium) Tablet 400 mg PO BID 30 Days Qty: 60 0RF gabapentin 100 mg Capsule 200 mg PO TID 30 Days Qty: 180 0RF oxycodone 5 mg Tablet 5 mg PO Q6H PRN (Reason: Moderate Pain) Qty: 20 0RF metoprolol tartrate 25 mg Tablet 25 mg PO BID@0900,2100 30 Days Qty: 60 0RF duloxetine 20 mg Capsule,Delayed Release(Dr/Ec) 20 mg PO BID Qty: 60 0RF Continued hydroxyzine HCl 50 mg tablet 50 mg PO TID PRN (Reason: Anxiety) diclofenac potassium 50 mg tablet 50 mg PO TID PRN (Reason: Pain) cyclobenzaprine 5 mg tablet 5 mg PO TID PRN (Reason: muscle spasm) 30 Days Qty: 30 0RF Discharge Orders: Discharge Order (Routine); Ordered 10/18/24 Ordered By: Adolph Marquez Referrals: Kavita Bettencourt MD [Physician] - 1 week (We have notified your physician's clinic of the need for a follow-up appointment to be scheduled. If you have not heard from them within the next 2 business days, please call them directly. ) Raya Milan FNP [Primary Care Provider] - 4-7 days (We have notified your physician's clinic of the need for a follow-up appointment to be scheduled. If you have not heard from them within the next 2 business days, please call them directly. ) Discharge Diet: Usual diet Discharge Activity: Resume usual activity and Increase activity as tolerated Patient Instructions: Metoprolol (By mouth), Gabapentin (By mouth), Oxycodone, Slow Release (By mouth), Magnesium Oxide (By mouth), Duloxetine (By mouth), Guillain-[place] Syndrome (DC), Hypomagnesemia (DC), Opioid Safety, Pain Management Activity Restrictions/Additional Instructions: Please follow-up with neurology as an outpatient within next 1 week for a possible IVIG treatment every 3 weeks. Continue increasing your physical activity with physical therapy as possible. Discharge Attestations Time Spent in Discharge Care*: greater than 30 min Specific Discharge Activities: educating patient, discussing with pcp/other providers, discussing with immigration case manager/social workers/dc planners, documenting/other paperwork and evaluating patient/reviewing data Status at Discharge: Cognitive status at discharge: cognitively intact , Behavioral status at discharge: cooperative , Functional status at discharge: other assisted ambulation , Overall status at discharge: patient is progressing back to baseline Quality Metrics Clinical Quality Measures [ No reported AMI, CVA or VTE this stay] Coding Level of Care Code 14890 Total time (in minutes) for Discharge: 60 Diagnoses AIDP (acute inflammatory demyelinating polyneuropathy) G61.0 Hypokalemia E87.6 Hypomagnesemia E83.42
[2024-10-18] MEDS: IMMUNE GLOBULIN IV (14:03)
[2024-10-18] MEDS: enoxaparin 40 mg/0.4 mL Syringe SUBCUT (14:19)
--- NOTE | 2024-10-18 16:21 | PC.NURSE ---
Discussed discharge with patient. Went over new medications, continued medications, follow up appointments and gave patient a paper script for pain medication. Medications were sent to the [facility] [place]. Patient verbalized understanding.
== END 2024-10-18 16:25 | disposition home or self-care (01) | DRG 96 ==
LOC: ER 11:47 → MEDSURG 12:06
PROVIDERS: Admitting Provider Internal Medicine; Emergency Provider Family Medicine; PCP Nurse Practitioner Family; Visit Provider Student in an Organized Health Care Education/Training Program
DX: G61.0 Guillain-Barre syndrome (principal); E87.6 Hypokalemia; E83.42 Hypomagnesemia; F17.200 Nicotine dependence, unspecified, uncomplicated; F41.9 Anxiety disorder, unspecified
CPT/HCPCS: 36415; 80048; 80053; 82607; 82746; 83735; 85025; 85651; 86140; 93005; 94664; 96372; 96374; 97110; 97161; 97166; 97530; 97535; 99285; J1561; J1650; J1885; J2405; J3475

== ENCOUNTER 2024-12-12 12:06 | Oncology outpatient (recurring) (ONCR) | payer MEDICAID, SELFPAY ==
[2024-12-10 13:27] LABS: Basophils % 0.3 %; Eosinophils # 0.2 10^3/uL (0.0-0.8); Eosinophils % 1.9 %; Hematocrit 38.1 % (36-47); Lymphocytes % 23.1 %; Mean Corpuscular HGB Conc 34.9 g/dL (30-55); Mean Corpuscular Hemoglobin 29.5 pg (27-33); Mean Corpuscular Volume 84.5 fl (85-98); Mean Platelet Volume 10.2 fL (7.4-10.4); Monocytes # 1.2 10^3/uL (0.2-0.9); Neutrophils # 8.44 10^3/uL (1.8-7.7); Neutrophils % 65.3 %; Nucleated Red Blood Cells % 0 %; Platelet Count 321 10^3/cmm (157-399); Red Blood Count 4.51 10^6/uL (3.85-5.65); Red Cell Distribution Width 14.6 % (12.1-15.1); White Blood Count 12.91 10^3/uL (3.29-11.43)
[2024-12-10] MEDS: Immune Globulin (Gamunex-C) 20 GM in empty flexible container 1 EACH IV (13:29)
[2024-12-10 13:45] LABS: Alanine Aminotransferase 38 U/L (0-33); Albumin Level 3.4 g/dL (3.5-5.2); Alkaline Phosphatase 229 U/L (35-105); Anion Gap 16.7 (5-19); Aspartate Amino Transferase 72 U/L (0-32); Blood Urea Nitrogen 5 mg/dL (6-20); Calcium 8.3 mg/dL (8.5-10.5); Carbon Dioxide 27 mmol/L (22-29); Chloride 92 mmol/L (98-107); Globulin 3.2 g/dL (1.3-4.6); Glomerular Filtration Rate 240.6 mL/min (90-130); Glucose 111 mg/dL (65-115); Osmolality Calculated 274 mOsm/kg (285-295); Sodium 133 mmol/L (136-145); Total Bilirubin 2.2 mg/dL (0.15-1.2); Total Protein 6.6 g/dL (6.6-8.7)
[2024-12-10 13:48] LABS: Potassium 2.7 mmol/L (3.5-5.1)
[2024-12-10 14:01] LABS: Vitamin B12 298 pg/mL (232-1245)
[2024-12-10] MEDS: thiamine 100 mg/mL 2mL SDV IM (15:28)
[2024-12-10] MEDS: cyanocobalamin 1,000 mcg/mL SDV 1000 MCG IM (15:28)
[2024-12-10 15:45] VITALS: BP 144/84; PULSE 68; RESP 18; TEMP 36.9; O2SAT 100
[2024-12-11] MEDS: sodium chlor 0.9% + KCl 40 mEq 40 MEQ/1,000 ML BAG 250 MEQ IV (10:38)
[2024-12-11] MEDS: Immune Globulin (Gamunex-C) 20 GM in empty flexible container 1 EACH IV (11:22)
[2024-12-11 11:35] VITALS: BP 108/76; PULSE 96; RESP 18; TEMP 37; O2SAT 96
[2024-12-11] MEDS: thiamine 100 mg/mL 2mL SDV IM (15:01)
[2024-12-11] MEDS: cyanocobalamin 1,000 mcg/mL SDV 1000 MCG IM (15:02)
[2024-12-11 15:42] VITALS: BP 105/68; PULSE 100; RESP 17; TEMP 36.8; O2SAT 95
[2024-12-12] VITALS (7 sets, daily range): BP systolic 102–123; BP diastolic 68–85; PULSE 91–104; RESP 16–17; TEMP 36.3–37.1; O2SAT 96–98
[2024-12-12] MEDS: Immune Globulin (Gamunex-C) 20 GM in empty flexible container 1 EACH IV (12:33)
[2024-12-12] MEDS: thiamine 100 mg/mL 2mL SDV IM (12:42)
[2024-12-12] MEDS: cyanocobalamin 1,000 mcg/mL SDV 1000 MCG IM (12:43)
[2024-12-14 10:09] LABS: Vitamin B1 (Thiamine),Blood 73 nmol/L (78-185)
[2024-12-14 22:40] LABS: Ganglioside GM-1 Antibody IgG <1:800 titer (<1:800)
== END 2024-12-12 23:59 | disposition home or self-care (01) ==
PROVIDERS: PCP Nurse Practitioner Family; Visit Provider Specialist
DX: G61.81 Chronic inflammatory demyelinating polyneuritis (principal); Z79.899 Other long term (current) drug therapy; Z53.9 Procedure and treatment not carried out, unspecified reason
CPT/HCPCS: 80053; 82607; 83520; 84425; 85025; 96365; 96366; 96367; 96368; 96372; J1561; J3411; J3420

== ENCOUNTER 2024-12-14 09:48 | Oncology outpatient (recurring) (ONCR) | payer MEDICAID, SELFPAY ==
[2024-12-13 13:00] VITALS: BP 111/75; PULSE 72; RESP 16; TEMP 36.9; O2SAT 99
[2024-12-13 13:15] VITALS: BP 115/79; PULSE 75; RESP 16; TEMP 37; O2SAT 98
[2024-12-13] MEDS: thiamine 100 mg/mL 2mL SDV IM (13:16)
[2024-12-13] MEDS: cyanocobalamin 1,000 mcg/mL SDV 1000 MCG IM (13:17)
[2024-12-13 13:50] VITALS: BP 111/79; PULSE 89; RESP 16; TEMP 36.9; O2SAT 99
[2024-12-13 14:50] VITALS: BP 117/78; PULSE 78; RESP 16; TEMP 36.7; O2SAT 99
[2024-12-13 15:15] VITALS: BP 121/81; PULSE 78; RESP 16; TEMP 36.7; O2SAT 99
[2024-12-14 10:17] VITALS: BP 115/77; PULSE 70; TEMP 36.8; O2SAT 99
[2024-12-14] MEDS: Immune Globulin (Gamunex-C) 20 GM in empty flexible container 1 EACH IV (10:17)
[2024-12-14 10:34] VITALS: BP 131/87; PULSE 88; TEMP 36.9; O2SAT 98
[2024-12-14] MEDS: cyanocobalamin 1,000 mcg/mL SDV 1000 MCG IM (11:42)
[2024-12-14] MEDS: thiamine 100 mg/mL 2mL SDV IM (11:42)
[2024-12-14 11:55] VITALS: BP 108/67; PULSE 93; TEMP 36.8; O2SAT 98
[2024-12-14 12:18] VITALS: BP 131/87; PULSE 88; TEMP 36.9; O2SAT 98
== END 2024-12-21 23:59 | disposition home or self-care (01) ==
PROVIDERS: PCP Nurse Practitioner Family; Visit Provider Specialist
DX: Z53.9 Procedure and treatment not carried out, unspecified reason (principal); G61.81 Chronic inflammatory demyelinating polyneuritis; E53.8 Deficiency of other specified B group vitamins; Z79.899 Other long term (current) drug therapy
CPT/HCPCS: 96365; 96366; 96372; J1561; J3411; J3420

== ENCOUNTER → 2024-12-19 05:30 | Day surgery (SDC) | payer MEDICAID, SELFPAY ==
[2024-12-19 05:55] VITALS: BP 104/66; PULSE 83; RESP 17; TEMP 37; O2SAT 94
[2024-12-19] MEDS: sodium chloride 0.9% 1,000 ML 30 ML IV (06:23)
[2024-12-19 06:28] VITALS: BMI 19.9
[2024-12-19] MEDS: VANCOMYCIN ADD-Vantage 1,000 MG in 0.9% NaCl ADD-Vantage 250 ML 250 MG IV (06:41)
--- NOTE | 2024-12-19 06:59 | W.PM.OPSUD ---
Surgery/Procedure H&P Update DATE OF PROCEDURE: December 19, 2024 DATE H&P PERFORMED: 12/14/24 H&P UPDATE INFORMATION: I have reviewed H&P completed within last 30 days, I have examined patient prior to procedure and No changes to prior documentation PLANNED PROCEDURE: Operation Date: 12/19/24 07:00 Proposed Procedures p Portacath Placement [id number], E53.8 G86.81(Not Applicable) - Yoel Vizcarra MD
--- NOTE | 2024-12-19 07:33 | ANES.PREANE2 ---
Pre-Anesthetic Assessment Height/Weight: Height 1.63 m Weight 52.617 kg Temp Pulse Resp BP Pulse Ox O2 Del Method 98.6 F 83 17 104/66 94 Room Air 12/19/24 05:55 12/19/24 05:55 12/19/24 05:55 12/19/24 05:55 12/19/24 05:55 12/19/24 06:04 Operation Date: 12/19/24 07:00 Proposed Procedures p Portacath Placement [id number], E53.8 G86.81(Not Applicable) - Yoel Vizcarra MD Familial anesthetic complications: None Was Beta Shimon taken within 24 hours: N/A Was Clonidine taken within 24 hours: N/A Last intake: Intake Last Liquid Date 12/18/24 Last Liquid Time 22:00 Last Solid Date 12/18/24 Last Solid Time 20:30 Social No alcohol and No tobacco Exam alert, oriented x 3, clear to auscultation bilaterally and regular rate & rhythm Airway Mallampati: Class II Dentition: false Neuropsych demyellinating polyneuropathy Anesthetic Plan ASA status: 3 Anesthesia: MAC Risk of > 500 ml blood loss (7ml/kg in children): No Medications/Allergies Home Medications Medication Instructions Recorded Confirmed Last Taken Type cyanocobalamin (vitamin B-12) 1,000 mcg IM DAILY #10 mL 12/05/24 12/18/24 12/18/24 Rx 1,000 mcg/mL injection solution methadone 10 mg tablet 10 mg PO TID 30 days #90 tabs 12/05/24 12/18/24 12/19/24 Rx ondansetron 4 mg disintegrating 4 mg PO TID vomting 12/05/24 12/18/24 12/18/24 History tablet gabapentin 100 mg capsule 200 mg PO TID 12/18/24 12/18/24 12/18/24 History omeprazole 20 mg capsule,delayed 20 mg PO DAILY 12/18/24 12/18/24 12/19/24 History release syringe with needle, safety 1 mL #50 ea 12/18/24 Unknown Rx 25 gauge x 1 (Easy Touch FlipLock Syringe) Allergies Allergy/AdvReac Type Severity Reaction Status Date / Time Penicillins Allergy ALGY-Rash Verified 12/14/24 09:01 shellfish derived Allergy Unknown Verified 12/14/24 09:01 Current Medications Generic Name Dose Route Start Last Admin Trade Name Johnnyq PRN Reason Stop Dose Admin Sodium Chloride 1,000 mls @ 30 mls/hr 12/19/24 06:15 12/19/24 06:23 Sodium Chloride 0.9% IV 30 mls/hr .Q24H AUREA Administration PFSH Anesthesia Medical History 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
[2024-12-19 07:53] LABS: Anion Gap 10.8 (5-19); Blood Urea Nitrogen 2 mg/dL (6-20); Calcium 8.2 mg/dL (8.5-10.5); Carbon Dioxide 31 mmol/L (22-29); Chloride 96 mmol/L (98-107); Creatinine Clr Calc Pharmacy 151.0328; Glomerular Filtration Rate 172.6 mL/min (90-130); Glucose 105 mg/dL (65-115); Osmolality Calculated 277 mOsm/kg (285-295); Sodium 135 mmol/L (136-145)
[2024-12-19 07:57] LABS: Potassium 2.8 mmol/L (3.5-5.1)
[2024-12-19] MEDS: potassium chloride premix 100 ML 50 MEQ IV (08:16)
--- NOTE | 2024-12-19 08:26 | PC.NURSE ---
critical potassium of 2.8 reported by nela in lab, Dr Abel notified. She ordered 20meq of potassium with another 20 meq to follow pending labs
[2024-12-19] MEDS: lidocaine 1% 10 ML INJ 2.5 ML INJECTION (10:30)
--- NOTE | 2024-12-19 10:43 | PM.MISC ---
Miscellaneous Note Note: Patient hypokalemic upon lab draw, unable to successfully infuse potassium d/t patient discomfort (attempted to slow rate of infusion and added lidocaine), but K+ still produced intolerable symptoms. Discussed with surgeon and for patient comfort, will replace potassium orally as outpatient and re-schedule procedure
--- NOTE | 2024-12-19 11:09 | PC.NURSE ---
patient cancelled due to low potassium, patient was unable to tolerate iv potassium . dr freedman and dr reina advised that we contact patients primary care to suggest oral potassium replacement , have left one message on the nurse line at [facility]
== END ==
LOC: OR 05:32
PROVIDERS: Anesthesiology; PCP Nurse Practitioner Family; Visit Provider Student in an Organized Health Care Education/Training Program
DX: E53.8 Deficiency of other specified B group vitamins (principal); G61.81 Chronic inflammatory demyelinating polyneuritis; Z53.8 Procedure and treatment not carried out for other reasons
CPT/HCPCS: 36415; 80048; J2704; J3370; J3480; J7030; J7050

== ENCOUNTER 2025-01-07 10:00 | Oncology outpatient (recurring) (ONCR) | payer MEDICAID, SELFPAY ==
[2024-12-24 12:58] VITALS: BP 99/69; PULSE 95; RESP 16; TEMP 36.8; O2SAT 95
[2024-12-24] MEDS: IMMUNE GLOBULIN IV (12:58)
[2024-12-24] MEDS: [UNRECOGNIZED DRUG - OTHER] IV (12:58)
[2024-12-24 13:13] VITALS: BP 98/66; PULSE 105; RESP 16; TEMP 36.6; O2SAT 95
[2024-12-24 14:03] VITALS: BP 101/67; PULSE 85; RESP 16; TEMP 36.4; O2SAT 93
[2024-12-24 14:20] VITALS: BP 95/60; PULSE 79; RESP 16; TEMP 36.8; O2SAT 95
[2024-12-24] MEDS: thiamine 100 mg/mL 2mL SDV IM (14:40)
[2024-12-24] MEDS: cyanocobalamin 1,000 mcg/mL SDV 1000 MCG IM (14:40)
[2024-12-24 14:50] VITALS: BP 90/63; PULSE 85; RESP 16; TEMP 36.7; O2SAT 93
[2024-12-24] MEDS: sodium chloride 0.9% 250 ML 500 ML IV (16:05)
[2024-12-24 16:53] VITALS: BP 111/75; PULSE 85; RESP 17; TEMP 36.9; O2SAT 97
[2025-01-07] MEDS: IMMUNE GLOBULIN IV (10:31)
[2025-01-07] MEDS: [UNRECOGNIZED DRUG - OTHER] IV (10:31)
[2025-01-07 10:35] VITALS: BP 114/79; PULSE 82; RESP 17; TEMP 36.5; O2SAT 95
[2025-01-07] MEDS: thiamine 100 mg/mL 2mL SDV IM (10:57)
[2025-01-07] MEDS: cyanocobalamin 1,000 mcg/mL SDV 1000 MCG IM (10:58)
[2025-01-07 11:05] VITALS: BP 129/88; PULSE 77; RESP 18; TEMP 36.6; O2SAT 97
[2025-01-07 11:20] VITALS: BP 129/88; PULSE 82; RESP 17; TEMP 36.8; O2SAT 97
[2025-01-07 12:20] VITALS: BP 122/77; PULSE 103; RESP 17; TEMP 36.8; O2SAT 97
[2025-01-07 12:51] VITALS: BP 112/78; PULSE 96; RESP 17; TEMP 36.4; O2SAT 97
[2025-01-07 13:13] VITALS: BP 112/78; PULSE 96; RESP 17; TEMP 36.4; O2SAT 97
== END 2025-01-07 23:59 | disposition home or self-care (01) ==
PROVIDERS: PCP Nurse Practitioner Family; Visit Provider Specialist
DX: Z53.9 Procedure and treatment not carried out, unspecified reason; G61.81 Chronic inflammatory demyelinating polyneuritis; Z79.899 Other long term (current) drug therapy
CPT/HCPCS: 96365; 96366; 96372; 96402; J1561; J3411; J3420; J7050

== ENCOUNTER 2025-02-11 11:00 | Oncology outpatient (recurring) (ONCR) | payer MEDICAID, SELFPAY ==
[2025-01-21] MEDS: IMMUNE GLOBULIN IV (12:18)
[2025-01-21] MEDS: [UNRECOGNIZED DRUG - OTHER] IV (12:18)
[2025-01-21] MEDS: cyanocobalamin 1,000 mcg/mL SDV 1000 MCG IM (12:27)
[2025-01-21] MEDS: thiamine 100 mg/mL 2mL SDV IM (12:27)
[2025-01-21 12:48] VITALS: PULSE 93; RESP 18; TEMP 36.8; O2SAT 93
[2025-01-21 12:52] VITALS: BP 110/73; PULSE 93; RESP 18; TEMP 36.7; O2SAT 93
[2025-01-21 13:23] VITALS: BP 118/79; PULSE 93; RESP 17; TEMP 36.6; O2SAT 93
[2025-01-21 14:29] VITALS: BP 126/91; PULSE 89; RESP 18; TEMP 37.1; O2SAT 94
[2025-01-21 15:52] VITALS: BP 125/62; PULSE 95; RESP 17; TEMP 37.3; O2SAT 95
[2025-02-11] MEDS: sodium chlor 0.9% + KCl 40 mEq 40 MEQ/1,000 ML BAG 250 MEQ IV (12:39)
[2025-02-11] MEDS: lidocaine 1% INJ 20 mL 5 ML IV (12:39)
[2025-02-11 12:53] VITALS: BP 121/65; PULSE 90; RESP 18; TEMP 36.8; O2SAT 97
[2025-02-11] MEDS: immune globulin (Gamunex-C) 40 GM, Immune Globulin (Gamunex-C) 20 GM, immune globulin (... IV (12:54)
[2025-02-11 13:10] VITALS: BP 130/77; PULSE 86; RESP 18; TEMP 36.6; O2SAT 97
[2025-02-11 13:26] VITALS: BP 121/80; PULSE 86; RESP 18; TEMP 36.6; O2SAT 96
[2025-02-11 13:42] VITALS: BP 120/80; PULSE 89; RESP 18; TEMP 37; O2SAT 96
[2025-02-11] MEDS: thiamine 100 mg/mL 2mL SDV IM (15:26)
[2025-02-11] MEDS: cyanocobalamin 1,000 mcg/mL SDV 1000 MCG IM (15:27)
[2025-02-11 16:58] VITALS: BP 120/80; PULSE 89; RESP 16; TEMP 37.1; O2SAT 96
== END 2025-02-11 23:59 | disposition home or self-care (01) ==
PROVIDERS: PCP Nurse Practitioner Family; Visit Provider Specialist
DX: Z53.9 Procedure and treatment not carried out, unspecified reason; D51.9 Vitamin B12 deficiency anemia, unspecified; G61.81 Chronic inflammatory demyelinating polyneuritis; Z79.620 Long term (current) use of immunosuppressive biologic; Z79.899 Other long term (current) drug therapy
CPT/HCPCS: 96365; 96366; 96367; 96372; J1561; J3411; J3420; J9999

== ENCOUNTER 2025-07-02 14:11 | Outpatient (CLI) | payer MEDICAID, SELFPAY ==
--- NOTE | 2025-07-02 14:19 | XRR_ITS ---
PROCEDURE INFORMATION: Exam: XR Right Foot Exam date and time: 07/02/2025 2:31 PM Age: 44 years old Clinical indication: Right; Injury to foot x few weeks, pain in metatarsal area dorsal and plantar; Additional info: Pain in right foot TECHNIQUE: Imaging protocol: Radiologic exam of the right foot. Views: 3 or more views. COMPARISON: No relevant prior studies available. FINDINGS: Bones/joints: Fracture of the neck of the 4th and 5th metatarsals. Soft tissues: Normal. XR/XR foot RT min 3V* [id number] IMPRESSION: Fracture of the neck of the 4th and 5th metatarsals.
== END 2025-07-02 14:12 | disposition home or self-care (01) ==
PROVIDERS: PCP Nurse Practitioner Family; Visit Provider Nurse Practitioner Family
DX: S92.344A Nondisplaced fracture of fourth metatarsal bone, right foot, initial encounter for closed fracture (principal); S92.354A Nondisplaced fracture of fifth metatarsal bone, right foot, initial encounter for closed fracture; X58.XXXA Exposure to other specified factors, initial encounter
CPT/HCPCS: 73630